=== PATIENT | female | born 1985 | race Caucasian/White ===

== ENCOUNTER 2023-06-28 15:11 | Emergency (ER) | payer OTHER, SELFPAY ==
[2023-06-28] VITALS (11 sets, daily range): BP systolic 139–244; BP diastolic 102–150; PULSE 85–124; RESP 14–21; TEMP 36.5; O2SAT 90–100; BMI 51.6
[2023-06-28 16:11] LABS: Influenza Virus A Antigen Negative; Influenza Virus B Antigen Negative; Internal Control Within Normal Limits
[2023-06-28 16:12] LABS: Internal Control Within Normal Limits; SARS-CoV-2 Ag NEGATIVE (NEGATIVE); Strep A Antigen Screen Positive
--- NOTE | 2023-06-28 16:12 | ECG_ITS ---
[facility] Test Date: 2023-06-28 Pat Name: ELLYN CUEVAS Department: Room: - Gender: Female Director Of Maintenance: : 1985 Requested By: Order Number: [id number] Reading MD: YARIEL COOPER Measurements Intervals [place] Rate: 106 P: 61 MN: 172 QRS: -51 QRSD: 86 T: 44 QT: 332 QTc: 394 Interpretive Statements 1120 Sinus tachycardia 2630 Left anterior fascicular block 8102 Low QRS voltage in chest leads 9150 abnormal ECG No previous ECG available for comparison Electronically Signed On 06-28-2023 23:15:03 EST by YARIEL COOPER
--- NOTE | 2023-06-28 16:13 | ED.URI1 ---
HPI - URI/Sore Throat General Chief Complaint: Upper Respiratory Infection Stated Complaint: Upper Respiratory Infection Time Seen by Provider: 06/28/23 16:00 Source: patient Limitations: no limitations History of Present Illness HPI Narrative: Patient is a 38-year-old female who presents to the emergency department for the evaluation of flulike illness. She has a history of high blood pressure, hypothyroidism, mental illness. Her son was seen twice at the [facility] emergency department last week for strep and flulike illness. She states she developed symptoms in the last 5 to 7 days. She reports nausea, vomiting, sore throat, congestion. She is not concerned for . She has been out of her medications for high blood pressure, hypothyroidism. She states she is in between primary care providers. She has no chest pain or shortness of breath. Related Data Previous Rx's Medication Instructions Recorded buspirone 15 mg tablet 15 mg PO TID 14 days #42 tabs 06/28/23 levothyroxine 150 mcg tablet 150 mcg PO DAILY 14 days #14 tabs 06/28/23 (Synthroid) lisinopril 20 1 tab PO DAILY 14 days #14 tabs 06/28/23 mg-hydrochlorothiazide 12.5 mg tablet metoprolol tartrate 25 mg tablet 25 mg PO BID 14 days #28 tabs 06/28/23 ondansetron 4 mg disintegrating 4 mg PO Q6H PRN nausea and 06/28/23 tablet vomiting #12 tabs venlafaxine 75 mg capsule,extended 75 mg PO BID 14 days #28 caps 06/28/23 release 24 hr Allergies Allergy/AdvReac Type Severity Reaction Status Date / Time naproxen AdvReac Intermediate Blister Verified 06/28/23 16:39 Review of Systems ROS Constitutional Denies: fever or chills Ears, nose, mouth, and throat Reports: throat pain and nasal congestion Cardiovascular Denies: chest pain Respiratory Reports: cough; Denies: shortness of breath Gastrointestinal Reports: nausea and vomiting Musculoskeletal Denies: back pain Integumentary/Breast Denies: rash Neurological Denies: headache Allergic/Immunologic Denies: hives PFSH PFSH Social History Smoking status: Former smoker Exam Narrative Exam Narrative: Gen.: Awake, alert, in no distress Head: Normocephalic, atraumatic ENT: Moist mucous membranes Respiratory: No respiratory distress, lungs clear bilaterally Cardio: Tachycardia Gastrointestinal: Abdomen is soft, nondistended and nontender to palpation Extremities: Moves extremities equally Psych: Normal mood and affect Neuro: No focal neuro deficit Skin: Warm, dry, intact Constitutional Vital Signs, click to edit/add: Last Vital Signs Temp 97.7 F 06/28/23 15:15 Pulse 124 H 06/28/23 15:15 Resp 20 06/28/23 15:15 BP 200/140 H 06/28/23 15:49 Pulse Ox 100 06/28/23 15:15 Course Vital Signs Vital signs: Vital Signs Temperature 97.7 F 06/28/23 15:15 Pulse Rate 124 H 06/28/23 15:15 Respiratory Rate 06/28/23 15:15 Blood Pressure 244/150 H 06/28/23 15:15 Pulse Oximetry 100 06/28/23 15:15 Temperature 97.7 F 06/28/23 15:15 Pulse Rate 124 H 06/28/23 15:15 Respiratory Rate 06/28/23 15:15 Blood Pressure 200/140 H 06/28/23 15:49 Pulse Oximetry 100 06/28/23 15:15 MDM - URI/Sore Throat MDM Narrative Medical decision making narrative: Because of the patient's tachycardia and hypertension, an IV was placed, EKG was obtained, swabs for strep, COVID and flu were obtained. Patient is positive for strep, labs with no significant acute abnormalities. She was treated with IV fluids, Zofran, labetalol with improvement of blood pressure.Patient has been out of her metoprolol and Synthroid. I will refill these until she is able to be seen by her PCP at the end of this month.She opted for intramuscular Bicillin for treatment of her strep pharyngitis in the ER. She was given Decadron as well with improvement. She is discharged home to follow-up with PCP and return to the ER if symptoms change or worsen. Medical Records Attestation: I reviewed the patient's medical records. Lab Data Attestation: I reviewed the patient's lab results. Labs: Lab Results 06/28/23 06/28/23 Range/Units 15:26 16:22 WBC 15.7 H (4.0-11.0) 10^3/uL RBC 5.22 (4.20-5.40) 10^6/uL Hgb 12.6 (12.0-16.0) g/dL Hct 39.8 (36.0-48.0) % MCV 76.2 L (81.0-99.0) fL MCH 24.1 L (26.7-34.0) pg MCHC 31.7 (29.9-35.2) g/dL RDW 16.5 H (11.0-15.0) % Plt Count 401 (150-450) 10^3/uL MPV 8.7 L (9.5-13.5) fL Neut % (Auto) 69.2 (43.0-75.0) % Lymph % (Auto) 22.4 (20.5-60.0) % [place] % (Auto) 4.8 (1.7-12.0) % Eos % (Auto) 2.7 (0.9-7.0) % Baso % (Auto) 0.5 (0.2-2.0) % Neut # (Auto) 10.8 H (1.4-6.5) 10^3/uL Lymph # (Auto) 3.5 (1.2-3.8) 10^3/uL [place] # (Auto) 0.8 (0.3-0.8) 10^3/uL Eos # (Auto) 0.4 (0.0-0.7) 10^3/uL Baso # (Auto) 0.1 (0.0-0.1) 10^3/uL Abs Immat Gran (auto) 0.07 H (0.00-0.03) 10^3/uL Imm/Tot Granulo (auto) 0.4 (0.0-0.5) % Sodium 141 (136-145) mmol/L Potassium 3.9 (3.5-5.1) mmol/L Chloride 103 (98-107) mmol/L Carbon Dioxide 32.3 H (21.0-32.0) mmol/L Anion Gap 9.6 BUN 10.0 (7.0-18.0) mg/dL Creatinine 0.94 (0.55-1.02) mg/dL Est GFR ( Amer) >60 (>=60) Est GFR (Non-Af Amer) >60 (>=60) BUN/Creatinine Ratio 10.6 Glucose 113 H (74-106) mg/dL Calcium 8.6 (8.5-10.1) mg/dL Total Bilirubin 0.2 (0.2-1.0) mg/dL AST 30 (15-37) U/L ALT 31 (14-59) U/L Alkaline Phosphatase 91 (46-116) U/L Troponin I High Sens <4.0 L (4.0-51.3) pg/mL Total Protein 8.7 H (6.4-8.2) g/dL Albumin 3.2 L (3.4-5.0) g/dL Globulin 5.5 g/dL Albumin/Globulin Ratio 0.6 Influenza Type A Ag Negative Influenza Type B Ag Negative SARS-CoV-2 Ag (CV2AG) Negative (NEGATIVE) Streptococcus Screen Positive A ECG Data Attestation: I personally reviewed and interpreted this ECG as follows: (Sinus tachycardia at a rate of 106,No acute ST elevation or ectopy. EKG reviewed by attending physician) ECG interpretation date: 06/28/23 Discharge Plan Discharge Chief Complaint: Upper Respiratory Infection Clinical Impression: Acute streptococcal pharyngitis, Hypertension Patient Disposition: Home, Self-Care Time of Disposition Decision: 17:23 Condition: Good Prescriptions / Home Meds: New ondansetron 4 mg tablet,disintegrating 4 mg PO Q6H PRN (Reason: nausea and vomiting) Qty: 12 0RF buspirone 15 mg tablet 15 mg PO TID 14 Days Qty: 42 0RF levothyroxine [Synthroid] 150 mcg tablet 150 mcg PO DAILY 14 Days Qty: 14 0RF lisinopril-hydrochlorothiazide 20-12.5 mg tablet 1 tab PO DAILY 14 Days Qty: 14 0RF metoprolol tartrate 25 mg tablet 25 mg PO BID 14 Days Qty: 28 0RF venlafaxine 75 mg capsule,extended release 24hr 75 mg PO BID 14 Days Qty: 28 0RF Instructions: Strep Throat (ED), Hypertension (ED) Stand Alone Forms: Portal Instructions Referrals: Physician,Non-Staff, MD [Primary Care Provider] - 1 week
[2023-06-28 16:32] LABS: Basophils Absolute Auto 0.1 10^3/uL (0.0-0.1); Basophils Percent Auto 0.5 % (0.2-2.0); Eosinophils Absolute Auto 0.4 10^3/uL (0.0-0.7); Eosinophils Percent Auto 2.7 % (0.9-7.0); Hematocrit 39.8 % (36.0-48.0); Hemoglobin 12.6 g/dL (12.0-16.0); Immature Granulocytes Abs Auto 0.07 10^3/uL (0.00-0.03); Immature Granulocytes Pct Auto 0.4 % (0.0-0.5); Lymphocytes Absolute Auto 3.5 10^3/uL (1.2-3.8); Lymphocytes Percent Auto 22.4 % (20.5-60.0); Mean Corpuscular HGB Conc 31.7 g/dL (29.9-35.2); Mean Corpuscular Hemoglobin 24.1 pg (26.7-34.0); Mean Corpuscular Volume 76.2 fL (81.0-99.0); Mean Platelet Volume 8.7 fL (9.5-13.5); Monocytes Absolute Auto 0.8 10^3/uL (0.3-0.8); Monocytes Percent Auto 4.8 % (1.7-12.0); Neutrophils Absolute Auto 10.8 10^3/uL (1.4-6.5); Neutrophils Percent Auto 69.2 % (43.0-75.0); Platelet Count 401 10^3/uL (150-450); Red Blood Count 5.22 10^6/uL (4.20-5.40); Red Cell Distribution Width 16.5 % (11.0-15.0); White Blood Count 15.7 10^3/uL (4.0-11.0)
[2023-06-28] MEDS: 0.9 % SODIUM CHLORIDE 1,000 ML 1000 ML IV (16:39)
[2023-06-28] MEDS: ONDANSETRON PF 4 MG/2 ML VIAL IV (16:39)
[2023-06-28] MEDS: LABETALOL HCL 20 MG/4 ML SYRINGE IVP (16:39)
[2023-06-28 16:47] LABS: Alanine Aminotransferase 31 U/L (14-59); Albumin Globulin Ratio 0.6; Albumin Level 3.2 g/dL (3.4-5.0); Alkaline Phosphatase 91 U/L (46-116); Anion Gap 9.6; Aspartate Amino Transferase 30 U/L (15-37); BUN Creatinine Ratio 10.6; Bilirubin Total 0.2 mg/dL (0.2-1.0); Calcium 8.6 mg/dL (8.5-10.1); Carbon Dioxide 32.3 mmol/L (21.0-32.0); Chloride 103 mmol/L (98-107); Estimated GFR (African America >60 (>=60); Estimated GFR (Non-African Ame >60 (>=60); Globulin 5.5 g/dL; Glucose 113 mg/dL (74-106); Potassium 3.9 mmol/L (3.5-5.1); Sodium 141 mmol/L (136-145); Total Protein 8.7 g/dL (6.4-8.2); Troponin I High Sensitivity <4.0 pg/mL (4.0-51.3)
[2023-06-28] MEDS: PENICILLIN G BENZATHINE 1,200,000 UNIT/2 ML SYRINGE 1200000 UNIT IM (16:47)
== END 2023-06-28 17:40 | disposition home or self-care (01) ==
PROVIDERS: Physician Assistant; Emergency Provider Emergency Medicine Emergency Medical Services
DX: J02.0 Streptococcal pharyngitis (principal); I10 Essential (primary) hypertension; E03.9 Hypothyroidism, unspecified; F99 Mental disorder, not otherwise specified; Z87.891 Personal history of nicotine dependence; T44.7X6A Underdosing of beta-adrenoreceptor antagonists, initial encounter; T38.1X6A Underdosing of thyroid hormones and substitutes, initial encounter
CPT/HCPCS: 36415; 80053; 84484; 85025; 87804; 87811; 87880; 93005; 96372; 96374; 96375; 99285; J0561; J1290; J2405

== ENCOUNTER 2023-10-20 19:24 | Emergency (ER) | payer OTHER, SELFPAY ==
--- OUTSIDE RECORDS SUMMARY | 2023-10-20 19:29 | XMS_ITS | CCD ---
Author Organization [facility] Care Team Providers Care Vocational Adviser Name Role Phone Mummert DO, Ayo Primary Care Unavailable Mummert, Ayo Attending Unavailable Mummert, Ayo Attending Unavailable Mummert DO, Ayo Primary Care Unavailable Mummert, Ayo Attending Unavailable Mummert DO, Ayo Primary Care Unavailable Mummert DO, Ayo Primary Care Unavailable Mummert, Ayo Attending Unavailable Cornejo, Manjit Attending Unavailable Cornejo, Manjit Admitting Unavailable MISC, DR HOWE Primary Care Unavailable DIONI, DR OTERO Admitting Unavailable HAY, DR OTERO Attending Unavailable DASHAWN ROSARIO Consulting Unavailable HAY, DR OTERO Consulting Unavailable TROTTI, GIROLAJOYCE Consulting Unavailable Madelin, Barbara Angelo Attending Unavailable MadelinBarbara Attending Unavailable Allergies Allergy Classification Reported Allergen(s) Allergy Type Date of Onset Reaction(s) Facility (2 sources) Naproxen; Translations: [naproxen] Drug Allergy [facility] Repository (1 source) Codeine Drug Allergy 03-29-2015 [facility] Repository (1 source) Naproxen Drug Allergy 05-26-2014 [facility] Repository (1 source) Darvocet-N 100 Drug allergy (disorder) 05-26-2014 [facility] Repository Problems Problem Classification Problem Date Documented Da te Episodic/Chronic Abdominal hernia (1 source) Umbilical hernia without obstruction or gangrene; Translations: [UMBILICAL HERNIA W/O OBST/GANGRENE] Onset: 04-13-2022 Episodic Abdominal pain (4 sources) Left lower quadrant pain; Translations: [LEFT LOWER QUADRANT PAIN] Onset: 04-09-2022 Episodic Other gastrointestinal disorders (1 source) Constipation, unspecified; Translations: [CONSTIPATION UNSPECIFIED] Onset: 04-13-2022 Episodic Residual codes; unclassified (1 source) Acquired absence of other specified parts of digestive tract; Translations: [ACQ ABSENCE OTH PART DIGESTV TRACT] Onset: 04-13-2022 Episodic Results Test Name Value Interpretation Reference Range Facil ity Pre-Certification Formon Pre-Certification Form [id number] Normal [facility] Ambulatory Visit Summaryon 0 07-01-2023 Ambulatory Visit Summary ELLYN RAI :1985 Visit Date:07/01/2023 Ambulatory Visit Instructions Your Diagnosis Anxiety Depression BMI 50.0-59.9, adult Former smoker Your Care Team Attending Physician - Barbara Troncoso Primary Care Physician - Barbara Troncoso This Is Your Medications List albuterol (Ventolin HFA 90 mcg/inh Aerosol-Adpt) buprenorphine-naloxon e (buprenorphine-naloxo ne 8 mg-2 mg sublingual film) busPIRone (busPIRone 15 mg Tab) busPIRone (busPIRone 15 mg Tab) gabapentin (gabapentin 400 mg Cap) levothyroxine (levothyroxine 150 mcg (0.15 mg) Tab) lisinopril (lisinopril 20 mg Tab) metoprolol (Metoprolol tartrate 25 mg Tab) ondansetron (ondansetron 4 mg Dis Tab) venlafaxine (venlafaxine 112.5 mg oral tablet, extended release) [Image Removed: STOP]Stop taking these medications hydrochlorothiazide-l isinopril (hydrochlorothiazide- lisinopril 12.5 mg-20 mg Tab) Procedures Performed delivery, Cholecystectomy, Surgery. Discharge Vitals Heart Rate (Peripheral) 78 Respiratory Rate 18 Blood Pressure 122/80 Height 165.5 cm Height 65 in Weight 149.8 kg Weight 329.56 lb BMI 54.69 What to do next Scheduled Follow-Up Appointments Tuesday 8:40 AM EDT With: Barbara Troncoso Where: [facility] Jose Normal [facility] Family Medicine Office/Clini c Noteon 07-01-2023 Family Medicine Office/Clinic Note HPI Staff Ellyn is a 38 year old female presenting to establish care Establish Care: History: Any previous diagnosis: Anx/dep, hypothyroid, asthma , chronic pain, History of drug use History of seeing any specialist: When was your last doctors visit: Last provider: [facility] Any recent labs: over a year ago, ELEUTERIO: 18 PHQ-9: 24 Health Maintenance UTD: Colonoscopy: no Mammogram: no Pelvic/Pap: 2016 normal Acute: Current issues/complaints: FYI pt has chronic left knee pain and back pain has muscle spasms. pt needs all medication refilled. History of Present Illness pt presents today to establish care. she went to ER for elevated BP. was started on hctz-lisinopril. BP is much better. but pt states after taking that med she gets dizzy. anxiety and depression are worsening Review of Systems PHQ Score Initial Depression Screen Score: 6 SCORE ROS - Provider Constitutional: no fever, no chills, no sweats, no fatigue Respiratory: no shortness of breath, no cough, no orthopnea, no wheezing. Cardiovascular: no chest pain, no palpitations, no edema. Neurologic: no headache, no dizziness, no numbness, no weakness. Physical Exam Vitals & Measurements HR: 78(Peripheral) RR: 18 BP: 122/80 SpO2: 98% HT: 65 in HT: 165.5 cm WT: 149.8 kg WT: 329.56 lb BMI: 54.69 General: alert, no acute distress ENMT: oral mucosa moist, no pharyngeal erythema or exudate Cardiovascular: regular rate and rhythm, normal peripheral perfusion Respiratory: Lungs CTA, respirations non labored Extremities: no deformity, no trauma Neurological: oriented x 4, LOC appropriate for age, CN II-XII intact, motor strength equal & normal bilaterally, speech normal Assessment/Plan 1. Anxiety (F41.9: Anxiety disorder, unspecified) will increase effexor to 112.5mg daily. pt has been on same dose for about 5 years. denies suicidal ideations at this time. RTC 4 weeks for annual wellness visit with labs. and to follow up on anxiety depression and Bp Ordered: lisinopril, 20 mg = 1 tab(s), Oral, Daily, # 90 tab(s), Refills(s) 0, Pharmacy: [facility], 165.5, cm, 07/01/23 13:32:00 EST, Height/Length Dosing, 149.8, kg, 07/01/23 13:32:00 EST, Weight Dosing 2. Depression (F32.A: Depression, unspecified) see above Ordered: lisinopril, 20 mg = 1 tab(s), Oral, Daily, # 90 tab(s), Refills(s) 0, Pharmacy: [facility], 165.5, cm, 07/01/23 13:32:00 EST, Height/Length Dosing, 149.8, kg, 07/01/23 13:32:00 EST, Weight Dosing 3. Essential hypertension (I10: Essential (primary) hypertension) BP at goal today. pt feels she gets very dizzy after taking hctz/lisinopril. will send just lisinopril to be taken at night. pt will monitor BP at home. will return in 4 weeks for follow up 4. Severe obesity (E66.01: Morbid (severe) obesity due to excess calories) 5. BMI 50.0-59.9, adult (Z68.43: Body mass index [BMI] 50.0-59.9, adult) BMI eduction complete Ordered: lisinopril, 20 mg = 1 tab(s), Oral, Daily, # 90 tab(s), Refills(s) 0, Pharmacy: [facility], 165.5, cm, 07/01/23 13:32:00 EST, Height/Length Dosing, 149.8, kg, 07/01/23 13:32:00 EST, Weight Dosing 6. Former smoker (Z87.891: Personal history of nicotine dependence) continue not smoking Ordered: lisinopril, 20 mg = 1 tab(s), Oral, Daily, # 90 tab(s), Refills(s) 0, Pharmacy: [facility], 165.5, cm, 07/01/23 13:32:00 EST, Height/Length Dosing, 149.8, kg, 07/01/23 13:32:00 EST, Weight Dosing Orders: busPIRone, 15 mg = 1 tab(s), Oral, TID, # 270 tab(s), Refills(s) 0, Pharmacy: [facility], 165.5, cm, 07/01/23 13:32:00 EST, Height/Length Dosing, 149.8, kg, 07/01/23 13:32:00 EST, Weight Dosing gabapentin, See Instructions, TAKE ONE CAPSULE BY MOUTH TWICE A DAY 90 DAYS, # 180 caplet(s), Refills(s) 1, Pharmacy: [facility], 165.5, cm, 07/01/23 13:32:00 EST, Height/Length Dosing, 149.8, kg, 07/01/23 13:32:00 EST, Weight Dosing levothyroxine, 150 mcg = 1 tab(s), Oral, Daily, 0 Refill(s), # 90 tab(s), Refills(s) 0, Pharmacy: [facility], 165.5, cm, 07/01/23 13:32:00 EST, Height/Length Dosing, 149.8, kg, 07/01/23 13:32:00 EST, Weight Dosing metoprolol, 25 mg = 1 tab(s), Oral, BID, 1 Unknown, 0 Refill(s), # 180 tab(s), Refills(s) 1, Pharmacy: [facility], 165.5, cm, 07/01/23 13:32:00 EST, Height/Length Dosing, 149.8, kg, 07/01/23 13:32:00 EST, Weight Dosing venlafaxine, 112.5 mg = 1 tab(s), Oral, Daily, # 90 tab(s), Refills(s) 0, Pharmacy: [facility], 165.5, cm, 07/01/23 13:32:00 EST, Height/Length Dosing, 149.8, kg, 07/01/23 13:32:00 EST, Weight Dosing Follow-up No qualifying data available Problem List/Past Medical History Ongoing Acquired hypothyroidism Anxiety Depression Essential hypertension Mild intermittent asthma Mixed anxiety and depressive disorder Severe obesity Historical No qualifying data Procedure/Surgical History delivery, Cholecystectomy, Surgery. Medications (more content not included)... Normal [facility] Comment on above: Result Comment: Elec tronically Signed By: Barbara Troncoso\.br\Date and Time Signed: 07/01/23 14:02 EST CBC AUTO DIFFon 04-09-2022 BASO # 0.1 103/ul Normal 0.0-0.1 [facility] Comment on above: Performed By: #### C BC #### [facility] [address] [address] [address] Andra Zamarripa Basophils/100 WBC (Bld) 0.6 % Normal 0.2-2.0 [facility] Comment on above: Performed By: #### C BC #### [facility] [address] [address] [address] Andra Zamarripa EO # 0.3 103/ul Normal 0.0-0.7 [facility] Comment on above: Performed By: #### C BC #### [facility] [address] [address] [address] Andra Zamarripa Eosinophils/100 WBC (Bld) 2.1 % Normal 0.9-7.0 [facility] Comment on above: Performed By: #### C BC #### [facility] [address] [place] [address] Dr. Andra Zamarripa Erythrocyte distribution width (RBC) [Ratio] 20.6 % Critically high 11.0-15.0 [facility] Comment on above: Performed By: #### C BC #### [facility] [address] [place] [address] Dr. Andra Zamarripa Hematocrit (Bld) [Volume fraction] 39.5 % Normal 36.0-48.0 [facility] Comment on above: Performed By: #### C BC #### [facility] [address] [place] [address] Dr. Andra Zamarripa Hemoglobin (Bld) [Mass/Vol] 12.1 g/dL Normal 12.0-16.0 [facility] Comment on above: Performed By: #### C BC #### [facility] [address] [address] [address] Andra Zamarripa IG # 0.06 10e3/ul Critically high 0.00-0.03 [facility] Comment on above: Performed By: #### C BC #### [facility] [address] [address] [address] Andra Zamarripa IG % 0.4 % Normal 0.0-0.5 [facility] Comment on above: Performed By: #### C BC #### [facility] [address] [address] [address] Andra Zamarripa LYMPH # 4.2 103/ul Critically high 1.2-3.8 [facility] Comment on above: Performed By: #### C BC #### [facility] [address] [place] [address] Dr. Andra Zamarripa Lymphocytes/100 WBC (Bld) 26.3 % Normal 20.5-60.0 [facility] Comment on above: Performed By: #### C BC #### [facility] [address] [place] [address] Dr. Andra Zamarripa MANUAL DIFF REQ NO Normal [facility] Comment on above: Performed By: #### C BC #### [facility] [address] [place] [address] Dr. Andra Zamarripa MCH (RBC) [Entitic mass] 21.3 pg Critically low 26.7-34.0 [facility] Comment on above: Performed By: #### C BC #### [facility] [address] [place] [address] Dr. Andra Zamarripa MCHC (RBC) [Mass/Vol] 30.6 g/dL Normal 29.9-35.2 [facility] Comment on above: Performed By: #### C BC #### [facility] [address] [place] [address] Dr. Andra Zamarripa MCV (RBC) [Entitic vol] 69.4 fL Critically low 81.0-99.0 [facility] Comment on above: Performed By: #### C BC #### [facility] [address] [place] [address] Dr. Andra Zamarripa MONO # 0.7 103/ul Normal 0.3-0.8 [facility] Comment on above: Performed By: #### C BC #### [facility] [address] [place] [address] Dr. Andra Zamarripa Monocytes/100 WBC (Bld) 4.4 % Normal 1.7-12.0 [facility] Comment on above: Performed By: #### C BC #### [facility] [address] [address] [address] Andra Zamarripa NEUT # 10.6 103/ul Critically high 1.4-6.5 [facility] Comment on above: Performed By: #### C BC #### [facility] [id number] Andra Zamarripa Neutrophils/100 WBC (Bld) 66.2 % Normal 43.0-75.0 [facility] Comment on above: Performed By: #### C BC #### [facility] [address] [place] [address] Dr. Andra Zamarripa Platelet mean volume (Bld) [Entitic vol] 9.1 fL Critically low 9.5-13.5 [facility] Comment on above: Performed By: #### C BC #### [facility] [address] [place] [address] Dr. Andra Zamarripa PLT 454 103/ul Critically high 150-450 [facility] Comment on above: Performed By: #### C BC #### [facility] [address] [place], [place] [id number] Dr. Andra Zamarripa RBC 5.69 106/ul Critically high 4.20-5.40 [facility] Comment on above: Performed By: #### C BC #### [facility] [address] [place], [place] [id number] Dr. Andra Zamarripa WBC 16.0 103/ul Critically high 4.0-11.0 [facility] Comment on above: Performed By: #### C BC #### [facility] [address] [place], [place] [id number] Dr. Andra Zamarripa CT ABD/PELVIS WO CONon 04-09 CT ABD/PELVIS WO CON CT SCAN OF THE ABDOMEN AND PELVIS WITHOUT CONTRAST, 04/09/2022 5:53 PM EST COMPARISON: None CLINICAL HISTORY: CALCULUS OF KIDNEY left lower quadrant pain for a day TECHNIQUE: 3 mm axial images performed through the abdomen and pelvis without contrast. 3 mm sagittal and coronal MPR reconstructions performed. Dose reduction techniques were achieved by using automated exposure control and/or adjustment of mA and/or kV according to patient size and/or use of iterative reconstruction technique. ABDOMINAL CT SCAN FINDINGS: Lung bases are clear. Visualized heart is normal in size with no pericardial effusion. No renal or ureteral calculi identified. No obstructive uropathy. Remaining nonenhanced abdominal solid organs unremarkable. Prior cholecystectomy. PELVIC CT FINDINGS: The uterus and nondistended urinary bladder have a normal appearance. No free fluid. Moderate to large amount of fecal matter in the colon bordering on a pattern of early constipation. No mechanical obstruction. The appendix is normal. Fat-containing umbilical hernia with an opening orifice measuring 13 mm. No acute osseous abnormality. IMPRESSION: 1. Bowel gas pattern suggestive of early constipation. No mechanical obstruction. The appendix is normal. 2. No renal or ureteral calculi identified. No obstructive uropathy. 3. Prior cholecystectomy. 4. Small fat-containing abdominal hernia. Electronically authenticated by: Liz BURRELL Date: 2022-04-09 21:04 Normal [facility] Covid-19 PCR ([facility])on SARS-CoV-2 (COVID-19) RNA DEE+probe Ql (Unsp spec) Not detected Normal NOT DETECTED [facility] Comment on above: Result Comment: When diagnostic testing is negative, the possibility of a false negative should be considered in the context of a patient's recent exposures and the presence of clinical signs and symptoms consistent with SARS-CoV-2. This test is not yet approved or cleared by the [place] FDA. When there are no FDA-approved or cleared tests available, and other criteria are met, FDA can make tests available under an emergency access mechanism called an Emergency Use Authorization (EUA). The EUA for this test is supported by the [place] of Health and Human Service's declaration that circumstances exist to justify the emergency use of in vitro diagnostics for the detection and/or diagnosis of the virus that causes COVID-19. This EUA will remain in effect for the duration of the COVID-19 declaration justifying emergency of IVDs, unless it is terminated or revoked by the FDA (after which the test may no longer be used). Performed By: #### C VDTB #### [facility] [address] [place] [address] Dr. Andra Zamarripa URINE PROFILEon 2 Bilirubin Ql (U) Negative Normal NEGATIVE [facility] Comment on above: Performed By: #### E RUR, PREGU #### [facility] [address] [place] [address] Dr. Andra Zamarripa Clarity (U) CLEAR Normal CLEAR [facility] Comment on above: Performed By: #### E RUR, PREGU #### [facility] [address] [place] [address] Dr. Andra Zamarripa Color (U) YELLOW Normal YELLOW [facility] Comment on above: Performed By: #### E RUR, PREGU #### [facility] [address] [place] [address] Dr. Andra Zamarripa ERUAHJorge A micrscopic examination will be performed if indicated. Normal [facility] Comment on above: Performed By: #### E RUR, PREGU #### [facility] [address] [place] [address] Dr. Andra Zamarripa Glucose Ql (U) Negative Normal NEGATIVE [facility] Comment on above: Performed By: #### E RUR, PREGU #### [facility] [address] [place] [address] Dr. Andra Zamarripa Hemoglobin Ql (U) Negative Normal NEGATIVE [facility] Comment on above: Performed By: #### E RUR, PREGU #### [facility] [address] [place] [address] Dr. Andra Zamarripa Ketones Ql (U) Negative Normal NEGATIVE [facility] Comment on above: Performed By: #### E RUR, PREGU #### [facility] [address] [place] [address] Dr. Andra Zamarripa LEUKOCYTES Negative Normal NEGATIVE [facility] Comment on above: Performed By: #### E RUR, PREGU #### [facility] [address] [place] [address] Dr. Andra Zamarripa Nitrite Ql (U) Negative Normal NEGATIVE [facility] Comment on above: Performed By: #### E RUR, PREGU #### [facility] [address] [place] [address] Dr. Andra Zamarripa pH (U) 7.0 [pH] Normal 5-9 [facility] Comment on above: Performed By: #### E RUR, PREGU #### [facility] [address] [place] [address] Dr. Andra Zamarripa SPEC GRAVITY 1.020 Normal 1.005-<=1.025 [facility] Comment on above: Performed By: #### E RUR, PREGU #### [facility] [address] [place] [address] Dr. Andra Zamarripa UA PROTEIN Negative Normal NEGATIVE/ TRACE [facility] Comment on above: Performed By: #### E RUR, PREGU #### [facility] [address] [place] [address] Dr. Andra Zamarripa UR MICRO IND NOT INDICATED Normal [facility] Comment on above: Performed By: #### E RUR, PREGU #### [facility] [address] [place] [address] Dr. Andra Zamarripa Urobilinogen Qn (U) 2.0 {Rosa'U}/dL Abnormal 0.2 - 1. 0 [facility] Comment on above: Performed By: #### E RUR, PREGU #### [facility] [address] [place] [address] Dr. Andra Zamarripa INFLUENZA A AND B AGon 04-09 INFLUENZA A AG Negative Normal NEGATIVE SEE COMMENT [facility] Comment on above: Performed By: #### I NFLUAB #### [facility] [address] [place] [address] Dr. Andra Zamarripa INFLUENZA B AG Negative Normal NEGATIVE SEE COMMENT [facility] Comment on above: Performed By: #### I NFLUAB #### [facility] [address] [place] [address] Dr. Andra Zamarripa INFLUPOS SEE BELOW Normal [facility] Comment on above: Result Comment: NOTE : Live attenuated influenzae vaccine viruses can cause a positive result for a rapid influenza diagnostic test if administered up to 7 days prior to rapid testing. Performed By: #### I NFLUAB #### [facility] [address] [place] [address] Dr. Andra Zamarripa INFLUPOSHB SEE BELOW Normal [facility] Comment on above: Result Comment: NOTE : Live attenuated influenzae vaccine viruses can cause a positive result for a rapid influenza diagnostic test if administered up to 7 days prior to rapid testing. Performed By: #### I NFLUAB #### [facility] [address] [place] [address] Dr. Andra Zamarripa INTERNAL CONTROLS Within Normal Limits Normal Wi thin Normal Limits [facility] Comment on above: Performed By: #### I NFLUAB #### [facility] [address] [place] [address] Dr. Andra Zamarripa URon 04-09-2022 , QUAL Negative Normal NEGATIVE [facility] Comment on above: Performed By: #### E RUR, PREGU #### [facility] [address] [place] [address] Dr. Andra Zamarripa PROF 14(COMP METB)on 022 Albumin [Mass/Vol] 3.8 g/dL Normal 3.4-5.0 [facility] Comment on above: Performed By: #### C MP #### [facility] [address] [place] [address] Dr. Andra Zamarripa Albumin/Globulin [Mass ratio] 0.7 {ratio} Normal [facility] Comment on above: Performed By: #### C MP #### [facility] [address] [place] [address] Dr. Andra Zamarripa ALP [Catalytic activity/Vol] 93 U/L Normal 46-116 [facility] Comment on above: Performed By: #### C MP #### [facility] [address] [place] [address] Dr. Andra Zamarripa ALT [Catalytic activity/Vol] 25 U/L Normal 14-59 [facility] Comment on above: Performed By: #### C MP #### [facility] [address] [place] [address] Dr. Andra Zamarripa Anion gap [Moles/Vol] 5.9 mmol/L Normal [facility] Comment on above: Performed By: #### C MP #### [facility] [address] [address] [address] Andra Zamarripa AST [Catalytic activity/Vol] 25 U/L Normal 15-37 [facility] Comment on above: Performed By: #### C MP #### [facility] [address] [address] [address] Andra Zamarripa Bilirubin [Mass/Vol] 0.3 mg/dL Normal 0.2-1.0 [facility] Comment on above: Performed By: #### C MP #### [facility] [address] [address] [address] Andra Zamarripa Calcium [Mass/Vol] 8.7 mg/dL Normal 8.5-10.1 [facility] Comment on above: Performed By: #### C MP #### [facility] [address] [address] [address] Andra Zamarripa Chloride [Moles/Vol] 97 mmol/L Critically low 98-107 [facility] Comment on above: Performed By: #### C MP #### [facility] [address] [address] [address] Andra Zamarripa CO2 [Moles/Vol] 33.4 mmol/L Critically high 21.0-32.0 [facility] Comment on above: Performed By: #### C MP #### [facility] [address] [place] [address] Dr. Andra Zamarripa Creatinine [Mass/Vol] 1.24 mg/dL Critically high 0.55-1.02 [facility] Comment on above: Performed By: #### C MP #### [facility] [address] [address] [address] Andra Zamarripa EGFR-AF ANGUILLAN 59 mL/min/1.73m2 Critically low >=60 [facility] Comment on above: Performed By: #### C MP #### [facility] [address] [address] [address] Andra Zamarripa EGFR-NON AF ANGUILLAN 48 mL/min/1.73m2 Critically low >=60 [facility] Comment on above: Performed By: #### C MP #### [facility] [address] [address] [address] Andra Zamarripa Globulin (S) [Mass/Vol] 5.2 g/dL Normal [facility] Comment on above: Performed By: #### C MP #### [facility] [address] [address] [address] Andra Zamarripa Glucose [Mass/Vol] 136 mg/dL Critically high 74-106 [facility] Comment on above: Performed By: #### C MP #### [facility] [address] [address] [address] Andra Zamarripa Potassium [Moles/Vol] 3.3 mmol/L Critically low 3.5-5.1 [facility] Comment on above: Performed By: #### C MP #### [facility] [address] [address] [address] Andra Zamarripa Protein [Mass/Vol] 9.0 g/dL Critically high 6.4-8.2 [facility] Comment on above: Performed By: #### C MP #### [facility] [address] [place] [address] Dr. Andra Zamarripa Sodium [Moles/Vol] 133 mmol/L Critically low 136-145 [facility] Comment on above: Performed By: #### C MP #### [facility] [address] [place] [address] Dr. Andra Zamarripa Urea nitrogen [Mass/Vol] 12.0 mg/dL Normal 7.0-18.0 [facility] Comment on above: Performed By: #### C MP #### [facility] [address] [address] [address] Andra Zamarripa Urea nitrogen/Creatinine [Mass ratio] 9.7 mg/mg Normal [facility] Comment on above: Performed By: #### C MP #### [facility] [address] [place] [address] Dr. Andra Zamarripa Coding Summaryon 04-07-2022 Coding Summary HTMLBase 64 CnzquulnKQt1dQu+PGhlY WQ+BN5PUWMgQ39loTNmbQ 9LR2bPJS3HUSQQMYDRYA4 IUP3qmVF2QMqdO5NfkoFl CcqmaQHyDJ26HFl3AQI0u DquVXrseP4hiPMfN7p8Lo AyCX97hN71OMvsNWMuOjX 3LjZpbjsgbWFy D6uuWkLcpLYyGmb+PHRhY mxlIHdpZHRoPScxMDAlJy SbtMfgKH2iGi0hFPRpMBH vbGxhcHNlOiBj j2qyFSTxTOyxDO9pfWlrY 3KefHU4QNBel6z6Ts56rJ I+BJFmCNO7eOliEDoll82 4MbAtv8oaLHD2 hVNsHEhdZTR9U99cd2Z0U YCyEZKsJKI2tSP0pF7gcO symnwxB7PsuXTzXcY3HDG 3kCPgeN1wcIwv wxrvcW0hItt+G03MWM0MU EUSUT0XNah5P8IiFvgriP I+OK23EDKtMV25hOIfpNF td7fnxRv2GvXs KTCgYBD0sAquGYtyh3YkM AKcJ88raOGvy2O8NLWbzX treLMzFwGjwVQ9uK1aDDc ennhtm6fkoosr Iwpvc7ythn66xT04Y05cO PpxGPXyGBD4HTSbCRKhqV juvd7qmV9wKt6+JPtqx5y yv4adlJx0ZmYd NIHczdMhhPnbJRF7h5PqW g04T8GvjKlvm2LfTgf9ug 62iPUjp3U3uNE7NJuvDUN rrL6nYGksQiZ9 YPXrSeVsjU35ySGfOGprJ c1jaWpmiNoxQV9nOPDazr pmLPPnmS9uDUBmfLKufRc fSY4cAUGmuddi l070XuMjJCO7GIOqiRTrH 8LfbD7kFaGrQPMhGEHwZ7 EpyNHzYOelZ484UKnoYvY 5XDKvalEzL7Pe HFVnkAarOcS6h0C5Gl5Ap 1MnqgptCHN9NTdpSGAoOw GaXqTdPtH0L6MiYiu7MWP myMvcZQ0lL3Mt XWQlzipkxywvnOE5RQMyX OGnqU22zBGpGEawZu6rz5 M1b804SGAcSQSxaO96Pe8 udDogMTBwdCBU wJ4hhduco8ejxkolZySfI LMwZHg8CJd7LHYnkKzgHp DmWYC4IgI6NOR6yNBjxV5 qoCxeshyhpW5i Oyc+B63ieL3gKAI1PLV6t kivSPOmzaQtLG89GZ24Z0 RyPjwvdGFibGU+PGRpdiB ujFjsDT7wDjKx p8zcy3WyYQwfP6DrIVDmB WerSru4TQRwFDC0lDT8jH 0uAZQgJPikz3S6lCN1E6Q quaVwsa1ku0mm NHZjNJdsU21tnEQoi9J2K VJryRG6DFYhfIgjBfZxzE 93Oyc+TQHfmGtvu9FsExn yw8rhb1hddWb3 OoDpZTZypvCppNmyLRL3e 0BuHd73Y44bHAohLMChXM OiKEAzIMCpaFprix1ggB9 wIi8+PGNvbCB3 jRF5yQ0kGBXgReK8PYyhD 055UoCpqHYgTuvgm2pee0 rtnZi1ZwEfMYMxxmPdqQy uYSL1k5VhWh30 Z43aOSolAWTtWJWmMFMsT FNpaKavhd4clO1aJi9+PC 7gm7ptps62bK53dVB+PHR yOZL2pWvvWOvp XLChmE3cCCdhDrF5DECkS gFktR97fELhNDncUk2wlD dgsOjgWM4tAQTrhcumc99 5SrKnr0dlDACf eOLqWEqpYHS9O35dq6A7C WTvAGRqAZR0vCS8rY3hyD lnbjogbGVmdDsgdmVydGl vQDfkZUkmI762 IHRvcDsnPlBhdGllbnQgT eBjFNx0J5YbAma2GDFnuO xlJI6iaPBgETztYb3wnMh ztQhkZQ1jAZJm khhhs878FcStk2mqLKXrv TBsUPmkHDW2A31mk1U7PA FtMFQyRJH1bCL1tH2aaUu nbjogbGVmdDsg mgKiwEdeEBgrTSvzQ298U HRvcDsnPkJpcnRoIERhdG Z9JQ20IM15sQYyw0P9gOK 6K1GbORQyzksv jchaqEL8ZFKuQHZhsZ47C m0nzRaiYs6fXYJcIGD8QB LmvMIyL6VsvG9qBrXeDFN lGWDjH4MpwIGt OGogI369AKtfCnG3MJCkw tStW3JpBGEqfQwsMiC6h9 X5Nm8TM8X5OV83KP14jRK gh4F2qJR9V2Ak HHVkobtuxcqesFJ5BLDzL RUhsK83Fq1alXanIs1eSO JfBMM2ACFpwKZfA8KngV7 yOiAjMDAwMDAw J0AbqYJfZUwtA985WPpeB gH4EUQdasHmQ5MdEMDktC mlAxN1z1A6Uq0HZTy6OJ5 2CC17gJRku2V9 hXC9G5QqRDCnixwjlzvvw QG8UUUoIWVbbP01Pi2wxJ dtPy9jIKTlHVF9YIFjhPZ dC4IpaR7wNsEt NNFjXNFgI3ArbSBiOOflQ 103RZnoBjW0IWMzefZdR6 PrFTFeyBejCgG5s9C2Wg0 OYLNbGX31QRZ4 oLU0NP28LL61Z2EvCplsu GFibGU+PHRhYmxlIHdpZH RoPScxMDAlJyBzdHlsZT0 fNh9mDWOxSTCd vGwnzCMjToYyt0ikWOIoB NtnUU5osMerD8FfyBO9BI Onl8p2Cb41B86yQ9HfaTB +TTZylEL9pXV2 uT3wQdEtNjX2DAyqU416Y zNcvLXuSnmvj8rfq3sxxA f7KgG7YFYpliLgyOwpSWS 6u4DhPb69U48j IHdpZHRoPSIxNSUiIHZhb Ntrrt2cmB1aEu1+PGNvbC G2oQV2cF1aUsIxQzM2RZb lA812DfXryWSv Oqexu1ojx7nuqZt2LePiC MQnrgIzvGkzPEB6k0WpRs 94L3JvsLsfw3BpHow5ln1 3qRBqf6N0sVB3 W4HgFOKndqukmUTgbZypW C5yTBCwvlkoVTLdrL7aHW MgF0x1OqUhXjZ7VDhkD1U bsmD5OZVcgPDr RQtcTOB2B33dl6R6CHNjL SRgYIZ5lIP9jT8arPuums ogbGVmdDsgdmVydGljYWw gBHrcV871SWWr cPrhSIDjsX6bPYNjvCAex MhlAX7dHEUxwhtoGwyWZT YGMtrdKvhPW2dBPXuMCs7 6P0NbZea2LIFt aKihXD0ypJYnLTjiSh7mo TzniNxgBR5kIWUgntezQG NlvU9bALGwuHIpkWyrEM4 jONXxjwqin478 UdNjFYL9GAAxhOVjP7Ukm O4iSbZqNKJhMZXsQ8YyaS TxWXisL687JSfqNyG6YKJ zbqOuV8MlEOAx oPyiZzX7s7H5Pm5oHU0oP L0tUTo1MH77RK81zKGze5 Y8eWS6C1YmDGDhcdgkclz xyIM2NYVaFNAz nH33fTFwKOakXq7kg2O4q 949OXYwMSCnpO96Vg0arW jzHNNqhMYEjQ1ffgqtw8r vcjogIzAwMDAw VGt4PAr5UKRfkBseAvYbJ OB5QdB1OTD4dGMxiV3ebM fkqqspuM8iYiu+MzggWWV njlH5M5FcDaa9 UBMloUhiYO0ybKTtJYdyX o0pjUndnAriVC1uKKAjjp mkOOTgdD4uYHYjcPNwhVv oVR5hGGMlykwa v352XzKzORC0FRQotDQyA 9ZczA2qZoMfCUVoPCXeO8 ZayVWsEQaoJ685JRlfGqI 1ENGbjcFiD4Hp NCYdfGiuFtK6p9M1Bw7PJ E9XXEG9Q1NtDsd9IMZaoI qaPO8bbEWdDXgkEn5bvTu oeGbuXW1tYARw kmwdMZQftN7lOCUslLRmc RffDD8vCQXrhinag973Ko SwMAT4RUCvzANxW1PfnC4 yOiAjMDAwMDAw U2SuzEFsAPjsE564GHomW uR4ZNOpigRiO4KuRVRabE soKwJ5w8U7Pk8FRXkqmEW +EW63ss43Y6Iz TottXny1QATjTWH4xBZ3k O0aLOVmQTmov4F2fCI3Q5 OdnbDorp5cr5qqJJYrMDo rV67gpZAgi0A5 MAHheTX0TEQnlGvxJaJzw G93Oyc+HNIdlCsau1CfAk syo9hih4uypIe0SfJqZNA gdmFsaWduPSJ0 y9EyQy28T28tGIpfVBVqY IHuTUPpZBEnvBgvrc9odK 9wIi8+ZIKjfNS2cIO0kN6 pKdAkQsF6WSkx L927FcEpcSYwHmqww5chc 1eyeUo0HvRyPVWsoyVkrU upURW0m6LsIa50J4PfdKd kf6UdIez3yv66 nIAws0K1mGJ7E6ZgFUYdo wkubTXeoLqlHH0zPFQqeb vzJNQxkU9hGQUxQ9u5YqF aMhV6RWwcJ9Ep guA8SNKtjKFpVBIzuJNMn L0ugcqza0rsrcitQxLtDE DcZBv6WDp6UXUxbYxzNsG uOFV5MtR6ETI5 wOUjsJ0vfWievexeoR0kF yc+SGd1l7yrgCPnYG7zvN C9UO08VG12mBYuk4T6zXV 3K4IoLPAywild bnimvWB5GWKoAJIsmG19X e3jzHcqEs8yNTDdBRI8YG DlrKDcL0LklL3hWvHmZIN nGDFqP0HioXQx VMawT929JVypZmZ9SWPvo kDrT7TsNTUecLfyXkX5v4 T1Ty5TVV07QP41AE13gZY ah7X5rNZ6V9Cy NQEjuslaljgyiZC9MRQzL RGdxR02Ft1olVilZs3yLF LsOYK5JTJdzOXfJ3PzuU4 yOiAjMDAwMDAw N6ZftXTwHPahH001WOyuM hQ2EFAjqqSjH5ClNWVscD azOjZ2p8W4Lm7GTr52OL9 4HO86eUJfa3L0 iZQ3S8VrILJrijpbsblag ET3NPBzTIShkY52Tt0dpQ qnIs6bHMBvXNL7IMWcjCH fU3PrzC2hAjRm FWJaREPwY0LhaUDwZStkG 984DEmxFnO6KQFvhuVcN9 CoOERwqFzgSwI2y0M1Xm6 CZOiynhc0D6Pg PjwvdHI+DZ38KVKjFX04r DBooWFkn8xbbHt5JsLmGL VwRTL4tQxxWJlce5NzWAU fC59nxZRoe6X2 IGN (more content not included)... [facility] ED Clinical Summaryon 2021 ED Clinical Summary [facility] ? Urgent Care [address] [place] [address] [id number] Clinical Summary PERSON INFORMATION Name: ELLYN RAI Age: 36 Years Sex: FEMALE : 1985 MRN: Acct#: Visit Reason: Cough; COUGH, SOB, HEADACHE Arrival: 03/28/2022 14:00:57 Discharge: 03/28/2022 15:14:00 LOS: 000 01:14 Check In: 03/28/2022 14:00:57 Checkout: 03/28/2022 15:14:00 Address: [address] [place], [place] [id number] PCP: PROVIDER INFORMATION Provider Role Assigned Unassigned Manjit Cornejo PA-C ED PA 03/28/2022 14:05:33 Leatha Flores [employer] Nurse 03/28/2022 14:10:32 VITALS INFORMATION Vital Sign Triage Latest Temperature Tympanic Temperature Temporal Artery Pulse Rate O2 Sat 96 % 96 % Respiratory Rate Blood Pressure /86 mmHg /86 mmHg MEDICAL INFORMATION Medications Given: Allergy Information: naproxen PHYSICIAN DOCUMENTATION DISCHARGE INFORMATION: Discharge Disposition: Home Discharge Location: Home PATIENT EDUCATION INFORMATION Instructions: Acute Bronchitis, Adult, Kekh-od-Qfca; Sinusitis, Adult, Cpvn-kf-Nqfu Follow-Up: With: Address: When: Follow up with primary care provider Within 1 week Comments: Please follow-up with your primary care provider, call the office schedule an appointment to be seen in a week or sooner for continued care, please take the doxycycline, Tessalon Perles, and prednisone as prescribed, use albuterol inhaler as directed, take kmiv-ayv-oxsxsek ibuprofen or Tylenol as needed for body aches, fevers, or headaches. Drink plenty of water to stay hydrated. Please return back to the urgent care center for any worsening symptoms, concerns, or complications. DIAGNOSIS: 1:Acute bronchitis; 2:Acute frontal sinusitis Patient Understands: Yes - Patient/family/caregi merna verbalizes understanding of instructions given Comment: Normal [facility] ED Patient Summaryon 022 ED Patient Summary [facility] ? Urgent Care [address] [place] [id number] PATIENT DISCHARGE INSTRUCTIONS Patient Information Name: ELLYN RAI Age: 36 Years Date of : 1985 [facility]: [id number] Reason For Visit: Cough; COUGH, SOB, HEADACHE Arrival Time: 03/28/2022 14:00:57 Primary Care Physician: Attending Physician: Manjit Cornejo PA-C Comment: Patient Education With: Address: When: Follow up with primary care provider Within 1 week Comments: Please follow-up with your primary care provider, call the office schedule an appointment to be seen in a week or sooner for continued care, please take the doxycycline, Tessalon Perles, and prednisone as prescribed, use albuterol inhaler as directed, take nbjx-geg-erbqnzp ibuprofen or Tylenol as needed for body aches, fevers, or headaches. Drink plenty of water to stay hydrated. Please return back to the urgent care center for any worsening symptoms, concerns, or complications. Acute Bronchitis, Adult Acute bronchitis is when air tubes in the lungs (bronchi) suddenly get swollen. The condition can make it hard for you to breathe. In adults, acute bronchitis usually goes away within 2 weeks. A cough caused by bronchitis may last up to 3 weeks. Smoking, allergies, and asthma can make the condition worse. What are the causes? This condition is caused by: ? Cold and flu viruses. The most common cause of this condition is the virus that causes the common cold. ? Bacteria. ? Substances that irritate the lungs, including: ? Smoke from cigarettes and other types of tobacco. ? Dust and pollen. ? Fumes from chemicals, gases, or burned fuel. ? Other materials that pollute indoor or outdoor air. ? Close contact with someone who has acute bronchitis. What increases the risk? The following factors may make you more likely to develop this condition: ? A weak body's defense system. This is also called the immune system. ? Any condition that affects your lungs and breathing, such as asthma. What are the signs or symptoms? Symptoms of this condition include: ? A cough. ? Coughing up clear, yellow, or green mucus. ? Wheezing. ? Having too much mucus in your lungs (chest congestion). ? Shortness of breath. ? A fever. ? Chills. ? Body aches. ? A sore throat. How is this treated? Acute bronchitis may go away over time without treatment. Your doctor may recommend: ? Drinking more fluids. ? Using a device that gets medicine into your lungs (inhaler). ? Using a vaporizer or a humidifier. These are machines that add water or moisture to the air. This helps with coughing and poor breathing. ? Taking a medicine for fever. ? Taking a medicine that thins mucus and clears congestion. ? Taking a medicine that prevents or stops coughing. Follow these instructions at home: Activity ? Get a lot of rest. ? Return to your normal activities as told by your doctor. Ask your doctor what activities are safe for you. Lifestyle ? Drink enough fluid to keep your pee (urine) pale yellow. ? Do not drink alcohol. ? Do not use any products that contain nicotine or tobacco, such as cigarettes, e-cigarettes, and chewing tobacco. If you need help quitting, ask your doctor. Be aware that: ? Your bronchitis will get worse if you smoke or breathe in other people's smoke (secondhand smoke). ? Your lungs will heal faster if you quit smoking. General instructions ? Take aevz-mjj-pzsgknx and prescription medicines only as told by your doctor. ? Use an inhaler, cool mist vaporizer, or humidifier as told by your doctor. ? Rinse your mouth often with salt water. To make salt water, dissolve ??1 tsp (3?6 g) of salt in 1 cup (237 mL) of warm water. ? Take two teaspoons of honey at bedtime. This helps lessen your coughing at night. ? Keep all follow-up visits as told by your doctor. This is important. How is this prevented? To lower your risk of getting this condition again: ? Wash your hands often with soap and water. If you cannot use soap and water, use hand disability manager. ? Avoid contact with people who have cold symptoms. ? Try not to touch your mouth, nose, or eyes with your hands. ? Make sure to get the flu shot every year. Contact a doctor if: ? Your symptoms do not get better in 2 weeks. ? You vomit more than once or twice. ? You have symptoms of loss of fluid from your body (dehydration). These include: ? Dark pee. ? Dry skin or eyes. ? Increased thirst. ? Headaches. ? Confusion. ? Muscle cramps. Get help right away if: ? You cough up blood. ? You have chest pain. ? You have very bad shortness of breath. ? You become dehydrated. ? You faint or keep feeling like you are going to faint. ? You have a very bad headache. ? Your fever or chills get worse. These symptoms ma (more content not included)... Normal [facility] Urgent Care [place] 022 Urgent Care Record [facility] ? Urgent Care [address] [id number] PATIENT DISCHARGE INSTRUCTIONS Patient Information Name: ELLYN RAI Age: 36 Years Date of : 1985 Reason For Visit: Cough; COUGH, SOB, HEADACHE Arrival Time: 03/28/2022 14:00:57 Primary Care Physician: Attending Physician: Manjit Cornejo PA-C Comment: Visit Diagnosis: Diagnoses This Visit Acute bronchitis (J20.9) Acute frontal sinusitis (J01.10) Cough (45485073) If you received any narcotics, sedation, or any other medication that causes drowsiness for the next 24 hours, unless otherwise directed: ? Do not drive a car. ? Do not operate machinery such as power tools, lawn mowers, drills, sewing machines, or stoves ? Avoid alcoholic beverages and drugs for allergies, nerves, or sleep ? Do not make important personal or business decisions or sign any legal documents With: Address: When: Follow up with primary care provider Within 1 week Comments: Please follow-up with your primary care provider, call the office schedule an appointment to be seen in a week or sooner for continued care, please take the doxycycline, Tessalon Perles, and prednisone as prescribed, use albuterol inhaler as directed, take aewv-utm-tpuqtcj ibuprofen or Tylenol as needed for body aches, fevers, or headaches. Drink plenty of water to stay hydrated. Please return back to the urgent care center for any worsening symptoms, concerns, or complications. Medication Information: The exam and treatment you received today in the [facility] were for an urgent problem and are not intended as complete care. It is important for you to follow up with a doctor, nurse practitioner, or physician?s embalmer assistant for ongoing care. If your symptoms become worse or you do not improve as expected and you are unable to reach your usual health care provider, you should return to the Emergency Department, we are available 24 hours a day. For those patients who have received Radiology results, the interpretation of your X-ray as given to you by our Urgent Care physician is only a preliminary report. The Radiologist will review your films and if there is a change in the diagnosis you will be notified by phone. Please make sure you have provided a working phone number so we can reach you if necessary. In the event that you had a lab culture while you were a patient in the Urgent Care, you will be notified by phone if there is a need to change your antibiotic. Please make sure you have provided a working phone number so we can reach you if necessary. [facility] has provided you with a complete list of medications post discharge. Please inform your hr analyst/provider of your visit and for further instruction on these medications. Any specific questions regarding your chronic medications and dosages should be discussed with your primary care physician(s) and/or pharmacist. New Medications [facility], [address] [place] [address] [phone], [phone] benzonatate (Tessalon Perles 100 mg oral capsule) 1 cap(s) Oral 3 times a day for 7 Days. Refills: 0. doxycycline (doxycycline hyclate 100 mg oral capsule) 1 cap(s) Oral 2 times a day for 10 Days. Refills: 0. predniSONE (predniSONE 20 mg oral tablet) 2 tab(s) Oral every day for 5 Days. Refills: 0. Medications That Were Updated - Follow Below Instructions [facility], [address] [place] [address] [phone], [phone] Updated: albuterol (Albuterol (Eqv-Proventil HFA) 90 mcg/inh inhalation aerosol) 2 puff(s) Inhalation every 6 hours for 7 Days. 2 puffs every 6 hours as needed.. Refills: 0. Other Medications Updated: albuterol (albuterol 90 mcg/inh inhalation aerosol) 2 puff(s) Inhalation Every 6 hours as needed for wheezing. Refills: 3. Medications to Continue That Have Not Changed Other Medications ammonium lactate topical (ammonium lactate 12% topical cream) 1 ravi Topical once a day (at bedtime). Refills: 2. baclofen (baclofen 10 mg oral tablet) 1 tab(s) Oral once a day (at bedtime). Refills: 0. buprenorphine-naloxon e (Suboxone 8 mg-2 mg sublingual film) 1 Each Sublingual 2 times a day. busPIRone (busPIRone 15 mg oral tablet) TAKE 2 TABLETS BY MOUTH EVERY MORNING AND TAKE 1 TABLET EVERY EVENING. Refills: 2. fluticasone nasal (Flonase 50 mcg/inh nasal spray) 1 spray(s) Each Nostril 2 times a day. Refills: 0. gabapentin (gabapentin 400 mg oral capsule) levothyroxine (levothyroxine 150 mcg (0.15 mg) oral tablet) TAKE 1 TABLET BY MOUTH ONCE DAILY. Refills: 2. magnesium oxide (magnesium oxide 400 mg oral tablet) 1 tab(s) Oral 2 times a day. metoprolol (Metoprolol Tartrate 25 mg oral tablet) 1 tab(s) Oral every day. Refills: 3. multivitamin, ( Multivitamins) Oral every day. venlafaxine (venlafaxine 75 mg oral capsule, extended release) TAKE 2 CAPSULES BY LONNY (more content not included)... [facility] Patient Letteron 11-10-2021 Patient Letter [id number] .[id number] [facility] Patient Handouton 09-22-2021 Patient Handout [facility] Internal Medicine [address] [facility] CERTIFIED MAIL September 15, 2021 Ellyn Rai [address] [place] [address] [address] [place] [address] Dear Ellyn: This letter is to inform you that I am terminating our medical provider-patient relationship and will no longer serve as your medical provider or prescribe medications to you effective thirty (30) days from the date of this letter for the following reason: Amount of no shows I will be available to provide emergency care (unless your condition requires you to visit a hospital, in which case, I will refer you there) and access to services for up to thirty (30) days from the date of this letter which will provide you time to find a new medical provider. As you may need medical attention in the future, I recommend that you promptly find another medical provider to care for your healthcare needs. Once you have found another medical provider, you may request that your medical records be transferred to that provider by completing, signing and returning the enclosed written request for the release of your medical records. Sincerely, Normal [facility] Encounters Encounter Date Encounter Type Care Provider Facility Start: 07-29-2023 ambulatory Barbara Angelo Madelin Facility: [facility] Jose Start: 07-01-2023 End: 07-02-2023 ambulatory [facility] Start: 04-09-2022 End: 04-09-[address] DOCTOR VALENTIN Facility: Start: 03-28-2022 End: 03-28-2022 ambulatory Manjit Cornejo [facility] Start: 09-16-2021 End: 09-16-2021 ambulatory Ayo Mummert DO Facility: [facility] Start: 09-08-2021 ambulatory Ayo Mummert DO Faci lity: [facility] Start: 07-23-2021 ambulatory Ayo Mummert Facilit y: [facility] Start: 05-27-2021 End: 05-27-2021 ambulatory Ayo Mummert Facility: [facility] Payers Date Payer Category Payer Medicaid [id number] 1985 Unknown [id number] .16.84 [id number]. 1985 Unknown [id number] .16.84 [id number] 1985 Unknown [id number] .16.84 [id number]. 1985 Unknown [id number] .16.84 [id number]. 1985 Unknown [id number] 2.16.84 [id number] 1985 Unknown [id number] 2.16.84 [id number] 1985 Unknown [id number] 2.16.8 [id number] 1985 Unknown [id number] 2.16.8 [id number] 1960 Medicaid [id number] Clinical Note 03-28-2022 Note Date & Type Note Facility 03-28-2022 Note Patient Education Ma terials Follows:Disease Sinusitis, Adult Sinusitis is soreness and swelling (inflammation) of your sinuses. Sinuses are hollow spaces in the bones around your face. They are located: ? Around your eyes. ? In the middle of your forehead. ? Behind your nose. ? In your cheekbones. Your sinuses and nasal passages are lined with a fluid called mucus. Mucus drains out of your sinuses. Swelling can trap mucus in your sinuses. This lets germs (bacteria, virus, or fungus) grow, which leads to infection. Most of the time, this condition is caused by a virus. What are the causes? This condition is caused by: ? Allergies. ? Asthma. ? Germs. ? Things that block your nose or sinuses. ? Growths in the nose (nasal polyps). ? Chemicals or irritants in the air. ? Fungus (rare). What increases the risk? You are more likely to develop this condition if: ? You have a weak body defense system (immune system). ? You do a lot of swimming or diving. ? You use nasal sprays too much. ? You smoke. What are the signs or symptoms? The main symptoms of this condition are pain and a feeling of pressure around the sinuses. Other symptoms include: ? Stuffy nose (congestion). ? Runny nose (drainage). ? Swelling and warmth in the sinuses. ? Headache. ? Toothache. ? A cough that may get worse at night. ? Mucus that collects in the throat or the back of the nose (postnasal drip). ? Being unable to smell and taste. ? Being very tired (fatigue). ? A fever. ? Sore throat. ? Bad breath. How is this diagnosed? This condition is diagnosed based on: ? Your symptoms. ? Your medical history. ? A physical exam. ? Tests to find out if your condition is short-term (acute) or long-term (chronic). Your doctor may: ? Check your nose for growths (polyps). ? Check your sinuses using a tool that has a light (endoscope). ? Check for allergies or germs. ? Do imaging tests, such as an MRI or CT scan. How is this treated? Treatment for this condition depends on the cause and whether it is short-term or long-term. ? If caused by a virus, your symptoms should go away on their own within 10 days. You may be given medicines to relieve symptoms. They include: ? Medicines that shrink swollen tissue in the nose. ? Medicines that treat allergies (antihistamines). ? A spray that treats swelling of the nostrils.? ? Rinses that help get rid of thick mucus in your nose (nasal saline washes). ? If caused by bacteria, your doctor may wait to see if you will get better without treatment. You may be given antibiotic medicine if you have: ? A very bad infection. ? A weak body defense system. ? If caused by growths in the nose, you may need to have surgery. Follow these instructions at home: Medicines ? Take, use, or apply [id number] and prescription medicines only as told by your doctor. These may include nasal sprays. ? If you were prescribed an antibiotic medicine, take it as told by your doctor. Do not stop taking the antibiotic even if you start to feel better. Hydrate and humidify ? Drink enough water to keep your pee (urine) pale yellow. ? Use a cool mist humidifier to keep the humidity level in your home above 50%. ? Breathe in steam for 10?15 minutes, 3?4 times a day, or as told by your doctor. You can do this in the bathroom while a hot shower is running. ? Try not to spend time in cool or dry air. Rest ? Rest as much as you can. ? Sleep with your head raised (elevated). ? Make sure you get enough sleep each night. General instructions ? Put a warm, moist washcloth on your face 3?4 times a day, or as often as told by your doctor. This will help with discomfort. ? Wash your hands often with soap and water. If there is no soap and water, use hand disability manager. ? Do not smoke. Avoid being around people who are smoking (secondhand smoke). ? Keep all follow-up visits as told by your doctor. This is important. Contact a doctor if: ? You have a fever. ? Your symptoms get worse. ? Your symptoms do not get better within 10 days. Get help right away if: ? You have a very bad headache. ? You cannot stop throwing up (vomiting). ? You have very bad pain or swelling around your face or eyes. ? You have trouble seeing. ? You feel confused. ? Your neck is stiff. ? You have trouble breathing. Summary ? Sinusitis is swelling of your sinuses. Sinuses are hollow spaces in the bones around your face. ? This condition is caused by tissues in your nose that become inflamed or swollen. This traps germs. These can lead to infection. ? If you were prescribed an antibiotic medicine, take it as told by your doctor. Do not stop taking it even if you start to feel better. ? Keep all follow-up visits as told by your doctor. This is important. This information is not intended to replace a (more content not included)... [facility] Medication management note 09-17-2021 Note Date & Type Note Facility 09-17-2021 Note Entered by Brandon Joseph on September 17, 2021 12:55:24 EDT From: Doris Joseph To: [facility] Sent: 09/17/2021 12:55:24 EDT Subject: Medication Management Submitted: Order:venlafaxine (venlafaxine 75 mg oral capsule, extended release) See Instructions TAKE 2 CAPSULES BY MOUTH ONCE DAILY Qty: 180 cap(s) Days Supply: 90 Refills: 2 Substitutions Allowed Route To Pharmacy - [facility] Signed by Doris Joseph 09/17/2021 12:55:00 EDT Submitted: Complete:venlafaxine (venlafaxine 75 mg oral capsule, extended release) Signed by Doris Joseph 09/17/2021 12:55:00 EDT Not Approved: New Rx to follow venlafaxine (VENLAFAXINE 75MG ER) TAKE 2 CAPSULES BY MOUTH ONCE DAILY Qty: 180 cap(s) Days Supply: 90 Refills: 2 Substitutions Allowed Route To Pharmacy - [facility] Note from Pharmacy: pt requests refills please 09/17/2021 11:59:53 AM Signed by Doris Joseph Submitted: Order:levothyroxine (levothyroxine 150 mcg (0.15 mg) oral tablet) See Instructions TAKE 1 TABLET BY MOUTH ONCE DAILY Qty: 90 tab(s) Days Supply: 90 Refills: 2 Substitutions Allowed Route To Pharmacy - [facility] Signed by Doris Joseph 09/17/2021 12:54:00 EDT Submitted: Complete:levothyroxine (levothyroxine 150 mcg (0.15 mg) oral tablet) Signed by Doris Joseph 09/17/2021 12:55:00 EDT Not Approved: New Rx to follow levothyroxine (LEVOTHYROXIN 150MCG) TAKE 1 TABLET BY MOUTH ONCE DAILY Qty: 90 tab(s) Days Supply: 90 Refills: 2 Substitutions Allowed Route To Pharmacy - [facility] Note from Pharmacy: pt requests refills please 09/17/2021 12:00:11 PM Signed by Doris Joseph Patient matched by Doris Joseph on 09/17/2021 12:54:33 EDT From: [facility] To: Ayo Sumner DO, DO Sent: September 17, 2021 11:00:13 AM CDT Subject: Medication Management Due: September 18, 2021 12:25:22 AM CDT On Hold Pending Signature Drug: venlafaxine (venlafaxine 75 mg oral capsule, extended release), TAKE 2 CAPSULES BY MOUTH ONCE DAILY Quantity: 180 cap(s) Days Supply: 90 Refills: 2 Substitutions Allowed Notes from Pharmacy: Dispensed Drug: venlafaxine (venlafaxine 75 mg oral capsule, extended release), TAKE 2 CAPSULES BY MOUTH ONCE DAILY Quantity: 180 cap(s) Days Supply: 90 Refills: 2 Substitutions Allowed Notes from Pharmacy: pt requests refills please 09/17/2021 11:59:53 AM On Hold Pending Signature Drug: levothyroxine (levothyroxine 150 mcg (0.15 mg) oral tablet), TAKE 1 TABLET BY MOUTH ONCE DAILY Quantity: 90 tab(s) Days Supply: 90 Refills: 2 Substitutions Allowed Notes from Pharmacy: Dispensed Drug: levothyroxine (levothyroxine 150 mcg (0.15 mg) oral tablet), TAKE 1 TABLET BY MOUTH ONCE DAILY Quantity: 90 tab(s) Days Supply: 90 Refills: 2 Substitutions Allowed Notes from Pharmacy: pt requests refills please 09/17/2021 12:00:11 PM [facility] Medication management note 08-19-2021 Note Date & Type Note Facility 08-19-2021 Note Entered by Shannan Newton LPN on August 19, 2021 11:31:22 EDT From: Silvia Newton LPN To: [facility] Sent: 08/19/2021 11:31:22 EDT Subject: Medication Management Not Approved: Already sent RF venlafaxine (VENLAFAXINE 75MG ER) TAKE 2 CAPSULES BY MOUTH ONCE DAILY Qty: 180 cap(s) Days Supply: 90 Refills: 2 Substitutions Allowed Route To Pharmacy - [facility] Note from Pharmacy: pt requesting refills 08/19/2021 11:18:04 AM Signed by Silvia Newton LPN From: [facility] To: Ayo Sumner DO, DO Sent: August 19, 2021 10:19:11 AM CDT Subject: Medication Management Due: August 20, 2021 12:10:37 AM CDT On Hold Pending Signature Drug: venlafaxine (venlafaxine 75 mg oral capsule, extended release), TAKE 2 CAPSULES BY MOUTH ONCE DAILY Quantity: 180 cap(s) Days Supply: 90 Refills: 2 Substitutions Allowed Notes from Pharmacy: Dispensed Drug: venlafaxine (venlafaxine 75 mg oral capsule, extended release), TAKE 2 CAPSULES BY MOUTH ONCE DAILY Quantity: 180 cap(s) Days Supply: 90 Refills: 2 Substitutions Allowed Notes from Pharmacy: pt requesting refills 08/19/2021 11:18:04 AM [facility] Summary Purpose Family History No Family History Records FoundNo Family History Records FoundNo Family History Records Found Advance Directives No Advanced Directives Records FoundNo Advanced Directives Records FoundNo Advanced Directives Records Found Additional Source Comments INFORMATION SOURCE (unrecogn ized section and content) DATE CREATED AUTHOR 04/07/2022 [facility] DATE CREATED AUTHOR AUTHOR'S ORGANIZ ATION 04/13/2022 [facility] DATE CREATED AUTHOR AUTHOR'S ORGANIZ ATION 07/14/2023 [facility] FOR RECORDS PERTAINING TO PATIENTS WHO ARE OR HAVE BEEN ENROLLED IN A CHEMICAL DEPENDENCY/SUBSTANCEABUSE PROGRAM, SOME INFORMATION MAY BE OMITTED. This clinical summary was aggregated from multiple sources. Caution should be exercised in using it in the provision of clinical care. This summary normalizes information from multiple sources, and as a consequence, information in this document may materially change the coding, format and clinical context of patient data. In addition, data may be omitted in some cases. CLINICAL DECISIONS SHOULD BE BASED ON THE PRIMARY CLINICAL RECORDS. [employer] provides no warranty or guarantee of the accuracy or completeness of information in this document.
[2023-10-20 19:32] VITALS: BP 136/110; PULSE 129; TEMP 36.8; O2SAT 100; BMI 51.6
--- NOTE | 2023-10-20 19:40 | ED_ITS ---
HPI - Nausea/Vomiting/Diarrhea General Chief complaint: Nausea/Vomiting/Diarrhea Stated complaint: Nausea/Vomiting/Diarrhea Time Seen by Provider: 10/20/23 19:35 History of Present Illness HPI Narrative: past history of HTN. Has multiple scratches and superficial sores on her forearms from playing with new kitten. Believes some of them are infected. Now presents with recurrent vomiting and diarrhea. Last meal yesterday. No fever or abdominal pain. Past cholecystectomy . States emesis is green. diarrhea watery nonbloody MD elicited complaint: Reports nausea, vomiting and diarrhea Related Data Home Medications ?Medication ?Instructions ?Recorded ?Confirmed buprenorphine 8 mg-naloxone 2 mg film 10/20/23 sublingual film gabapentin 400 mg capsule mg 10/20/23 lisinopril 20 mg tablet mg 10/20/23 Previous Rx's ?Medication ?Instructions ?Recorded buspirone 15 mg tablet 15 mg PO TID 14 days #42 tabs 06/28/23 levothyroxine 150 mcg tablet 150 mcg PO DAILY 14 days #14 tabs 06/28/23 (Synthroid) metoprolol tartrate 25 mg tablet 25 mg PO BID 14 days #28 tabs 06/28/23 venlafaxine 75 mg capsule,extended 75 mg PO BID 14 days #28 caps 06/28/23 release 24 hr Allergies Allergy/AdvReac Type Severity Reaction Status Date / Time naproxen AdvReac Intermediate Blister Verified 10/20/23 19:41 Review of Systems ROS Status of ROS 10 or more systems reviewed and unremark able except as noted in history and below [facility] Social History Smoking status: Former smoker Exam Constitutional Vital Signs, click to edit/add: Last Vital Signs Temp 98.2 F 10/20/23 19:32 Pulse 129 H 10/20/23 19:32 Resp 20 10/20/23 19:32 BP 136/110 H 10/20/23 19:32 Pulse Ox 100 10/20/23 19:32 O2 Del Method Room Air 10/20/23 19:32 Common normals: no apparent distress, oriented x3, no limitations, healthy appearing, alert and well nourished HENMA Common normals: normocephalic and head/scalp atraumatic Eye Common normals: EOMs intact bilaterally and conjunctivae normal Respiratory Common normals: normal respiratory effort, no retractions, no use of accessory muscles and clear to auscultation bilaterally Cardio Common normals: regular rate, regular rhythm, S1 normal heart sound and S2 normal heart sound GI Common normals: Normal to inspection, nondistended, normoactive bowel sounds present, soft to palpation and non-tender Extremity Other: diffuse multiple superficial sores on her arms. Some with associated mild erythema. some are scarred. lesions measure about 1-1.5cm Neuro Common normals: oriented x3, CN's II-XII intact bilaterally, moves all extremities, no focal motor deficits and no sensory deficits noted Psych Appearance: grossly normal Course Vital Signs Vital signs: Vital Signs Temperature 98.2 F 10/20/23 19:32 Pulse Rate 129 H 10/20/23 19:32 Respiratory Rate 20 10/20/23 19:32 Blood Pressure 136/110 H 10/20/23 19:32 Pulse Oximetry 100 10/20/23 19:32 Oxygen Delivery Method Room Air 10/20/23 19:32 Temperature 98.2 F 10/20/23 19:32 Pulse Rate 129 H 10/20/23 19:32 Respiratory Rate 20 10/20/23 19:32 Blood Pressure 136/110 H 10/20/23 19:32 Pulse Oximetry 100 10/20/23 19:32 Oxygen Delivery Method Room Air 10/20/23 19:32 MDM - Nausea/Vomiting/Diarrhea MDM Narrative Medical decision making narrative: one day history of diarrhea and vomiting. No pain. Improved after hydration and zofran. Now requesting to go home. labs acceptable. Discharged home with prescription for zofran Lab Data Labs: Lab Results 10/20/23 10/20/23 Range/Units 19:54 21:04 WBC 11.0 (4.0-11.0) 10^3/uL RBC 5.27 (4.20-5.40) 10^6/uL Hgb 12.9 (12.0-16.0) g/dL Hct 40.7 (36.0-48.0) % MCV 77.2 L (81.0-99.0) fL MCH 24.5 L (26.7-34.0) pg MCHC 31.7 (29.9-35.2) g/dL RDW 16.0 H (11.0-15.0) % Plt Count 340 (150-450) 10^3/uL MPV 9.2 L (9.5-13.5) fL Neut % (Auto) 79.8 H (43.0-75.0) % Lymph % (Auto) 13.1 L (20.5-60.0) % [place] % (Auto) 3.7 (1.7-12.0) % Eos % (Auto) 2.8 (0.9-7.0) % Baso % (Auto) 0.4 (0.2-2.0) % Neut # (Auto) 8.7 H (1.4-6.5) 10^3/uL Lymph # (Auto) 1.4 (1.2-3.8) 10^3/uL [place] # (Auto) 0.4 (0.3-0.8) 10^3/uL Eos # (Auto) 0.3 (0.0-0.7) 10^3/uL Baso # (Auto) 0.0 (0.0-0.1) 10^3/uL Abs Immat Gran (auto) 0.02 (0.00-0.03) 10^3/uL Imm/Tot Granulo (auto) 0.2 (0.0-0.5) % Sodium 137 (136-145) mmol/L Potassium 4.2 (3.5-5.1) mmol/L Chloride 101 (98-107) mmol/L Carbon Dioxide 29.7 (21.0-32.0) mmol/L Anion Gap 10.5 BUN 15.0 (7.0-18.0) mg/dL Creatinine 1.05 H (0.55-1.02) mg/dL Est GFR ( Amer) >60 (>=60) Est GFR (Non-Af Amer) 58 L (>=60) BUN/Creatinine Ratio 14.3 Glucose 117 H (74-106) mg/dL Calcium 8.5 (8.5-10.1) mg/dL Total Bilirubin 0.5 (0.2-1.0) mg/dL AST 55 H (15-37) U/L ALT 57 (14-59) U/L Alkaline Phosphatase 98 (46-116) U/L Total Protein 8.6 H (6.4-8.2) g/dL Albumin 3.3 L (3.4-5.0) g/dL Globulin 5.3 g/dL Albumin/Globulin Ratio 0.6 Lipase 25.0 (16.0-77.0) U/L Urine Color Yellow (YELLOW) Urine Clarity Clear (CLEAR) Urine pH 7.0 (5.0-9.0) Ur Specific [place] 1.020 (1.005-1.025) Urine Protein Negative (NEG/TRACE) mg/dL Urine Glucose (UA) Negative (NEGATIVE) mg/dL Urine Ketones Negative (NEGATIVE) mg/dL Urine Occult Blood Trace-i (NEGATIVE) Urine Nitrite Negative (NEGATIVE) Urine Bilirubin Negative (NEGATIVE) Urine Urobilinogen 2.0 A (0.2-1.0) EU/dL Ur Leukocyte Esterase Negative (NEGATIVE) Urine RBC 0-2 (0-2) #/HPF Urine WBC 0-2 A (NONE SEEN) #/HPF Ur Squamous Epith Cells Moderate A (NONE/RARE) #/LPF Urine Crystals None seen (None Seen) #/HPF Amorphous Sediment Few Urine Bacteria Trace A (NONE SEEN) #/HPF Urine Casts None seen (NONE SEEN) #/LPF Urine Mucus Trace A (NONE SEEN) Ur Culture Indicated? No Discharge Plan Discharge Stand Alone Forms: Portal Instructions Chief Complaint: Nausea/Vomiting/Diarrhea Clinical Impression: Gastroenteritis Patient Disposition: Home, Self-Care Prescriptions / Home Meds: No Action gabapentin 400 mg capsule buprenorphine-naloxone 8-2 mg film lisinopril 20 mg tablet buspirone 15 mg tablet 15 mg PO TID 14 Days Qty: 42 0RF levothyroxine [Synthroid] 150 mcg tablet 150 mcg PO DAILY 14 Days Qty: 14 0RF metoprolol tartrate 25 mg tablet 25 mg PO BID 14 Days Qty: 28 0RF venlafaxine 75 mg capsule,extended release 24hr 75 mg PO BID 14 Days Qty: 28 0RF Print Language: Comoran Instructions: Acute Nausea and Vomiting (ED), Acute Diarrhea (ED) Additional Instructions: follow up with your doctor early next week for recheck Referrals: Physician,Non-Staff, MD [Primary Care Provider] - 1 week
[2023-10-20] MEDS: 0.9 % SODIUM CHLORIDE 1,000 ML 999 ML IV (19:57)
[2023-10-20] MEDS: ONDANSETRON PF 4 MG/2 ML VIAL IV (19:57)
[2023-10-20 20:03] LABS: Basophils Percent Auto 0.4 % (0.2-2.0); Eosinophils Absolute Auto 0.3 10^3/uL (0.0-0.7); Eosinophils Percent Auto 2.8 % (0.9-7.0); Hematocrit 40.7 % (36.0-48.0); Hemoglobin 12.9 g/dL (12.0-16.0); Immature Granulocytes Abs Auto 0.02 10^3/uL (0.00-0.03); Immature Granulocytes Pct Auto 0.2 % (0.0-0.5); Lymphocytes Absolute Auto 1.4 10^3/uL (1.2-3.8); Lymphocytes Percent Auto 13.1 % (20.5-60.0); Mean Corpuscular HGB Conc 31.7 g/dL (29.9-35.2); Mean Corpuscular Hemoglobin 24.5 pg (26.7-34.0); Mean Corpuscular Volume 77.2 fL (81.0-99.0); Mean Platelet Volume 9.2 fL (9.5-13.5); Monocytes Absolute Auto 0.4 10^3/uL (0.3-0.8); Monocytes Percent Auto 3.7 % (1.7-12.0); Neutrophils Absolute Auto 8.7 10^3/uL (1.4-6.5); Neutrophils Percent Auto 79.8 % (43.0-75.0); Platelet Count 340 10^3/uL (150-450); Red Blood Count 5.27 10^6/uL (4.20-5.40)
[2023-10-20 20:18] LABS: Alanine Aminotransferase 57 U/L (14-59); Albumin Globulin Ratio 0.6; Albumin Level 3.3 g/dL (3.4-5.0); Alkaline Phosphatase 98 U/L (46-116); Anion Gap 10.5; Aspartate Amino Transferase 55 U/L (15-37); BUN Creatinine Ratio 14.3; Bilirubin Total 0.5 mg/dL (0.2-1.0); Calcium 8.5 mg/dL (8.5-10.1); Carbon Dioxide 29.7 mmol/L (21.0-32.0); Chloride 101 mmol/L (98-107); Estimated GFR (African America >60 (>=60); Estimated GFR (Non-African Ame 58 (>=60); Globulin 5.3 g/dL; Glucose 117 mg/dL (74-106); Potassium 4.2 mmol/L (3.5-5.1); Sodium 137 mmol/L (136-145); Total Protein 8.6 g/dL (6.4-8.2)
[2023-10-20 21:14] LABS: Bilirubin Urine NEGATIVE (NEGATIVE); Blood Urine TRACE-I (NEGATIVE); Clarity Urine CLEAR (CLEAR); Color Urine YELLOW (YELLOW); Glucose Urine UA NEGATIVE (NEGATIVE); Ketones Urine NEGATIVE (NEGATIVE); Leukocyte Esterase Urine NEGATIVE (NEGATIVE); Nitrite Urine NEGATIVE (NEGATIVE); Protein Urine NEGATIVE (NEG/TRACE)
[2023-10-20 21:17] LABS: Urine Microscopic Indicated YES
[2023-10-20 21:20] LABS: Bacteria Urine TRACE #/HPF (NONE SEEN); Mucus Urine TRACE (NONE SEEN); RBC Urine 0-2 #/HPF (0-2); WBC Urine 0-2 #/HPF (NONE SEEN)
[2023-10-20 21:21] LABS: Amorphous Sediment Urine FEW; Cast Seen? NONE SEEN #/LPF (NONE SEEN); Crystals Seen? None Seen #/HPF (None Seen); Squamous Epithelial Cell Urine MODERATE #/LPF (NONE/RARE); Urine Culture Indicated NO
[2023-10-20] MEDS: ONDANSETRON 4 MG RAPDIS TABLET SL (21:53)
[2023-10-20 22:02] VITALS: BP 135/88; PULSE 115; O2SAT 97
== END 2023-10-20 22:04 | disposition home or self-care (01) ==
PROVIDERS: Emergency Provider Internal Medicine
DX: K52.9 Noninfective gastroenteritis and colitis, unspecified (principal); I10 Essential (primary) hypertension; Z87.891 Personal history of nicotine dependence
CPT/HCPCS: 36415; 80053; 81001; 83690; 85025; 96361; 96374; 99284; J2405; Q0162

== ENCOUNTER 2024-10-15 14:48 | Observation (INO) | payer OTHER, SELFPAY ==
--- OUTSIDE RECORDS SUMMARY | 2015-04-22 03:51 | XMS_ITS | Continuity of Care Document ---
Author Organization [facility] Address [address] [place] [address] Phone Care Team Providers Care Register Repairer Name Role Phone Daren Delilah HOLT Unavailable Unavaila ble Allergies, Adverse Reactions, Alerts Substance Reaction Status Criticality codeine Abdominal pain Active No Informatio n naproxen Facial Edema Active No Information PROPOXYPHENE NAPSYLATE Active No In formation Medications Medication Instructions Dosage Effective Dates (start - stop) Status Comments Complete 14 mg-400 mcg tablet take 1 Tablet by Oral route every day 1 Tablet - Active Procedures Procedure Date OFFICE/OUTPATIENT VISIT, EST OFFICE/OUTPATIENT VISIT, EST URINE TEST OFFICE/OUTPATIENT VISIT, EST URINE TEST OFFICE/OUTPATIENT VISIT, EST [facility] SPECIMEN HANDLING (GC/CHLAMYDIA) Jan RISK ASSISSMENT CARE COORDINATION COUNSELING AND EDUCATION OFFICE/OUTPATIENT VISIT, EST ROUTINE VENIPUNCTURE CARE COORDINATION OFFICE/OUTPATIENT VISIT, EST [facility] SPECIMEN HANDLING (GC/CHLAMYDIA) Oct Thin Prep(R) Imaging System Pap W/Reflex To HR HPV DNA OFFICE/OUTPATIENT VISIT, [facility] ROUTINE VENIPUNCTURE RISK ASSISSMENT COUNSELING AND EDUCATION CARE COORDINATION Urine Culture Drug Abuse Panel OBSTETRIC PANEL W/RFX HIV 1/2 EIA ANTIBODY SCREEN W REFLEXES J Alpha Feta Protein GLUCOSE SERUM OFFICE/OUTPATIENT VISIT, [facility] URINE TEST Advance Directives Directive Yes / No Effective Date File Name No Information Encounters Encounter Description Practice Location Reason(s) For Visit Diagnoses Date Provider Providers Copied on Encounter [facility], [address] [place] [address], [id number] , [place] tel: [phone] [facility] No Information 5 [facility] Delilah. [address] [place] [address], [id number], [place]. tel:[phone] OFFICE/OUTPA TIENT VISIT, [facility], [address] [place] [address], [id number] , [place] tel: [phone] [facility] confirmation (chief complaint) Encounter for test, result weeks gestation of pregnancyHeroin use affecting , antepartumEncount er for supervision of other normal , 2nd trimester [facility] Delilah. [address] [place] [address], [id number], [place]. tel:[phone] OFFICE/OUTPA TIENT VISIT, [facility], [address] [place] [address], [id number] , [place] tel: [phone] [facility] test (chief complaint) examination or test, positive result 3-201 3 Maxi Schneider. [address] [place], [place], [id number], [place]. tel:[phone] OFFICE/OUTPA TIENT VISIT, [facility], [address] [place] [address], [id number] , [place] tel: [phone] [facility] No Information 0- 2 Landon Blood. [address] [place], [place], [id number]. tel:[phone] OFFICE/OUTPA TIENT VISIT, [facility], [address] [place], [place], [id number] , [place] tel: [phone] [facility] Routine PN Visit (chief complaint) Supervision of normal first 2 Agapito Dunn. [address] [place], [place], [id number], [place]. tel:[phone] OFFICE/OUTPA TIENT VISIT, [facility], [address] [place], [place], [id number] , [place] tel: [phone] [facility] Routine PN Visit (chief complaint) Supervision of normal first 2 Agapito Dunn. [address] [place] [address], [id number], [place]. tel:[phone] OFFICE/OUTPA TIENT VISIT, [facility], [address] [place], [place], [id number] , [place] tel: [phone] [facility] No Information 2 Agapito Dunn. [address] [place], [place], [id number], [place]. tel:[phone] OFFICE/OUTPA TIENT VISIT, [facility], [address] [place], [place], [id number] , [place] tel: [phone] [facility] No Information 2 Maxi Schneider. [address] [place], [place], [id number], [place]. tel:[phone] Family History Family Member Type Diagnosis Age At Onset Sister Problem (finding) Alive and well Father Problem (finding) asthma Maternal grandmother Problem (finding) malignant neopl asm of lung Mother Problem (finding) Alive and well Paternal aunt Problem (finding) Diabetes mellitus Sister Problem (finding) asthma Brother Problem (finding) asthma Father Problem (finding) Alive and well Paternal uncle Problem (finding) Diabetes mellitus Maternal grandmother Problem (finding) hypertension Brother Problem (finding) Alive and well Payers Payer name Insurance type Covered republican ID Authoriza tion(s) Medicaid [facility] [id number] Social History Type Description Quantity Date Captured Comments Alcohol Use Details Unknown Caffeine Use Details Unknown Tobacco Use Status Smoking Status No Information Sex Female Sexual Orientation Straight or heterosexual Chief Complaint And Reason For Visit No Information Reason For Referral Reason For Referral No Information Plan Of Treatment Date Type Action Status Goal TD Vaccine. Due on due Goal Breast exam. Due on 013 due Goal Tdap. Due on due Goal Depression screening. Due on due Goal H&P. Due on due Goal Tdap. Due on due Goal Depression screening. Due on due Goal TD Vaccine. Due on due Goal Breast exam. Due on 013 due Goal H&P. Due on due Goal Tobacco cessation counseling completed Referral Ordered: Obstetrics (related to Encounter for test, result positive) ordered Referral Ordered: Referrals: Obstetrics. Assume care ordered History Of Present Illness Encounter Date Complaint History Of Prese nt Illness confirmation Functional Status Date Functional Assessmen t No Information Instructions Date Instruction Additional Infor mation No Information Assessments Type Assessment Date No Information Patient Care Teams Name Effective Dates (start - stop) Status Members No Information
--- OUTSIDE RECORDS SUMMARY | 2023-06-21 10:30 | XMS_ITS ---
Author Organization [facility] Address [address] [place], [place] [id number] Care Team Providers Care Baggage Porter Head Name Role Phone Kody Montes De Oca Primary Care Provider [phone] REASON FOR VISIT med refill htn/thyroid/anx Social History Sex Assigned At : Social History Observation Description Sex Assigned At Female Encounters Encounter Location Date Provider Diagnosis Main [address] [place], [place] [id number] 06/21/2023 Kody Montes De Oca Plan Of Treatment No Information Progress Notes * Barbara RAI LDOB:[birth year] (39 yo F)Acc No.[id number]:06/21/2023 Medical Note Patient: Conrado GILMORE Barbara Petey Provider: Lizy Montes De Oca PA-C :1985 A ge:38 Y S ex:Female Date:06/21/2023 Address:[address] [place] [address], [place], [id number] Subjective: * Chief Complaints: * 1 . Med refill htn/thyroid/anx. * Medical History: Objective: * Vitals: Assessment: Plan: * Treatment: * Billing Information: * Visit Code: * Procedure Codes: * Electronic signature of DASHAWN Barron on 10/16/2024 at 06:01 AM EDT Sign off status: Pending * Provider: Lizy Montes De Oca PA-C Date: 0 06/21/2023 Generated for Printi ng/Faxing/eTransmitting on: 0 10/16/2024 06:01 AM EDT
[2024-10-15] VITALS (31 sets, daily range): BP systolic 101–154; BP diastolic 62–97; PULSE 77–138; TEMP 36.7–37.8; O2SAT 91–100; BMI 51.6; BMI 53.2
[2024-10-15] MEDS: IPRATROPIUM/ALBUTEROL SULFATE 3 ML AMPUL.NEB IH ×3 (15:45→22:44)
--- NOTE | 2024-10-15 15:59 | ECG_ITS ---
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 Measurements Intervals [place] Rate: 108 P: 75 RI: 166 QRS: -67 QRSD: 88 T: 37 QT: 330 QTc: 393 Interpretive Statements 1120 Sinus tachycardia 2630 Left anterior fascicular block 3114 Cannot rule out anterior myocardial infarction, age undetermined 8102 Low QRS voltage in chest leads 9150 abnormal ECG Compared to ECG 06/28/2023 16:23:18 Myocardial infarct finding now present Electronically Signed On 10-15-2024 21:54:19 EDT by WILL WIGGINS M.D.
[2024-10-15 17:00] LABS: Basophils Absolute Auto 0.1 10^3/uL (0.0-0.1); Basophils Percent Auto 0.8 % (0.2-2.0); Eosinophils Absolute Auto 0.4 10^3/uL (0.0-0.7); Eosinophils Percent Auto 4.7 % (0.9-7.0); Hematocrit 35.5 % (36.0-48.0); Hemoglobin 11.2 g/dL (12.0-16.0); Immature Granulocytes Abs Auto 0.03 10^3/uL (0.00-0.03); Immature Granulocytes Pct Auto 0.3 % (0.0-0.5); Lymphocytes Absolute Auto 2.7 10^3/uL (1.2-3.8); Lymphocytes Percent Auto 29.9 % (20.5-60.0); Mean Corpuscular HGB Conc 31.5 g/dL (29.9-35.2); Mean Corpuscular Hemoglobin 24.1 pg (26.7-34.0); Mean Corpuscular Volume 76.5 fL (81.0-99.0); Mean Platelet Volume 8.8 fL (9.5-13.5); Monocytes Absolute Auto 0.6 10^3/uL (0.3-0.8); Neutrophils Absolute Auto 5.2 10^3/uL (1.4-6.5); Neutrophils Percent Auto 57.3 % (43.0-75.0); Platelet Count 302 10^3/uL (150-450); Red Blood Count 4.64 10^6/uL (4.20-5.40); Red Cell Distribution Width 18.6 % (11.0-15.0); White Blood Count 9.2 10^3/uL (4.0-11.0)
[2024-10-15] MEDS: METHYLPREDNISOLONE SOD SUCC PF 125 MG/2 ML VIAL IVP (17:04)
--- NOTE | 2024-10-15 17:15 | ED.GENADUL1 ---
Documented by User: Doris Vega 10/15/24 17:23 HPI HPI - General Adult General Chief complaint: Upper Respiratory Infection Stated complaint: COUGH CONJESTION DIZZINESS EARACHE Time Seen by Provider: 10/15/24 15:21 Source: patient Mode of arrival: walk-in Limitations: no limitations History of Present Illness HPI narrative: 39-year-old female presents here with a chief complaint of difficulty breathing. She has a history of asthma. She states she quit smoking 8 years ago. States over the last week she has had upper respiratory congestion and cough. She woke this morning was coughing and she could not catch her breath. She states she felt like she could not breathe. Her son is also here with similar symptoms as far as upper respiratory infection. She is not currently febrile. She was on oxygen when I went into the room to see her. She had been here in the emergency room waiting to be seen due to the volume. She is currently stable. She is able to speak full sentences. She is up sitting at bedside talking to her son with oxygen on 2l. upon arrival pt was hypoxic, oxygen placed. she was hypoxic in the low 90s upper 80s Related Data Home Medications ?Medication ?Instructions ?Recorded ?Confirmed buprenorphine 8 mg-naloxone 2 mg 2 film buccal Q24H 10/20/23 10/15/24 sublingual film lisinopril 20 mg tablet 20 mg PO DAILY 10/20/23 10/15/24 albuterol sulfate 90 mcg/actuation 2 inh inhalation Q6H PRN shortness 10/15/24 10/15/24 aerosol inhaler of breath or wheezing buspirone 15 mg tablet 15 mg PO TID 10/15/24 10/15/24 docusate sodium 100 mg capsule 200 mg PO BID 10/15/24 10/15/24 ergocalciferol (vitamin D2) 1,250 1,250 mcg PO .twice per week 10/15/24 10/15/24 mcg (50,000 unit) capsule ferrous sulfate 325 mg (65 mg 325 mg PO DAILY 10/15/24 10/15/24 iron) tablet (FeroSul) levothyroxine 175 mcg tablet 175 mcg PO .QD 10/15/24 10/15/24 venlafaxine 75 mg capsule,extended 150 mg PO .QD 10/15/24 10/15/24 release 24 hr Previous Rx's ?Medication ?Instructions ?Recorded metoprolol tartrate 25 mg tablet 25 mg PO BID 14 days #28 tabs 06/28/23 Allergies Allergy/AdvReac Type Severity Reaction Status Date / Time naproxen AdvReac Intermediate Blister Verified 10/15/24 15:04 Opioid HPI Opioid Management Most Recent Opioid Data: Last Pain Assessment Today, 19:43 Last ORT Total Score 20 Today, 18:25 Last ORT Risk Category High Risk Today, 18:25 Review of Systems ROS Status of ROS 10 or more systems reviewed and unremarkable except as noted in history and below PFSH PFS Medical History (Updated 10/15/24 @ 18:13 by Mildred Irizarry RN) Hypertension ?I10 - Essential (primary) hypertension (ICD-10) Depression ?F32.A - Depression, unspecified (ICD-10) deliv due to previous difficult deliv, deliv, curr hospitaliz ?O82 - Encounter for delivery without indication (ICD-10) ?Z87.59 - Personal history of other complications of , childbirth and the puerperium (ICD-10) Anxiety and depression ?F41.9 - Anxiety disorder, unspecified (ICD-10) ?F32.A - Depression, unspecified (ICD-10) Asthma ?J45.909 - Unspecified asthma, uncomplicated (ICD-10) Surgical History (Updated 10/15/24 @ 18:13 by Mildred Irizarry RN) History of delivery ?Z98.891 - History of uterine scar from previous surgery (ICD-10) History of ankle surgery ?Z98.890 - Other specified postprocedural states (ICD-10) History of cholecystectomy ?Z90.49 - Acquired absence of other specified parts of digestive tract (ICD-10) Family History (Updated 10/15/24 @ 18:17 by Mildred Irizarry RN) Grandmother Family history of stroke Family history of hypertension Family history of cancer Grandfather Family history of myocardial infarction Aunt Family history of diabetes mellitus Family history of CHF (congestive heart failure) Uncle Family history of diabetes mellitus Mother Family history of COPD (chronic obstructive pulmonary disease) Father Family history of COPD (chronic obstructive pulmonary disease) Social History (Updated 10/15/24 @ 18:18 by Mildred Irizarry RN) Within the past year, how often did you have a drink containing alcohol: never Score interpretation: A score less than 3 is consistent with normal alcohol consumption. Smoking status: Former smoker Non-prescribed substance use: former substance user and opiods/painkillers Non-prescribed substance use details: Heroin Highest level of school completed/degree received: some college, no degree Little interest or pleasure in doing things: not at all Feeling down, depressed, or hopeless: not at all Exam Narrative Exam Narrative: All Systems are negative except as noted/marked.All systems reviewed and otherwise negative Nurses note and vital signs reviewed and patient is not hypoxic. General: The patient appears well and in no apparent distress. Patient is resting comfortably on cart. Skin: Warm, dry, no pallor noted. There is no rash noted. Head: Normocephalic, atraumatic Eye: Normal conjunctiva, no drainage, EOMI. PERRL Ears, Nose, Mouth, and Throat: oral mucosa is moist. Nares patent. Mouth without vesicles. Ear canals patent. Tm's without Erythema Cardiovascular: Regular Rate and Rhythm Respiratory: Harsh nonproductive cough with scattered in-store expiratory wheezing throughout posterior lower lung mary worse than anterior, minimal accessory muscle usage post breathing treatment Musculoskeletal: The patient has no evidence of calf tenderness, no pitting edema, symmetrical pulses noted bilaterally Neurological: A&O x4, normal speech Psychiatric: Cooperative Constitutional Vital Signs, click to edit/add: Last Vital Signs Temp 100.0 F 10/15/24 19:43 Pulse 104 H 10/15/24 20:00 Resp 20 10/15/24 19:43 BP 129/78 10/15/24 19:43 Pulse Ox 95 10/15/24 19:43 O2 Del Method Nasal Cannula 10/15/24 19:43 O2 Flow Rate 2 10/15/24 19:43 Course Vital Signs Vital signs: Vital Signs Temperature 99.3 F 10/15/24 15:01 Pulse Rate 138 H 10/15/24 15:01 Respiratory Rate 22 H 10/15/24 15:01 Blood Pressure 154/97 H 10/15/24 15:01 Pulse Oximetry 91 L 10/15/24 15:01 Oxygen Delivery Method Room Air 10/15/24 15:01 Temperature 100.0 F 10/15/24 19:43 Pulse Rate 104 H 10/15/24 20:00 Respiratory Rate 20 10/15/24 19:43 Blood Pressure 129/78 10/15/24 19:43 Pulse Oximetry 95 10/15/24 19:43 Oxygen Delivery Method Nasal Cannula 10/15/24 19:43 Oxygen Delivery Flow Rate 2 10/15/24 19:43 Medical Decision Making MDM Narrative Medical decision making narrative: 39-year-old female presents here with a chief complaint of difficulty breathing. She has a history of asthma. She states she quit smoking 8 years ago. States over the last week she has had upper respiratory congestion and cough. She woke this morning was coughing and she could not catch her breath. She states she felt like she could not breathe. Her son is also here with similar symptoms as far as upper respiratory infection. She is not currently febrile. She was on oxygen when I went into the room to see her. She had been here in the emergency room waiting to be seen due to the volume. She is currently stable. She is able to speak full sentences. She is up sitting at bedside talking to her son with oxygen on 2l. upon arrival pt was hypoxic, oxygen placed. she was hypoxic in the low 90s upper 80s Patient presented to the emergency room with chief complaint of shortness of breath. She has a history of asthma. She has been using her breathing treatment at home with little relief. States she has been sick for approximately 1 week. Upon arrival to the emergency room patient was on oxygen due to being hypoxic. Breathing treatments were given. Patient was also given IV Solu-Medrol. I did attempt to remove the patient's oxygen and her saturation really dropped down to 88% with good waveform. Patient is able to speak full sentences but does come easily winded if she tries to walk or talk. Due to patient's history of asthma I am going to admit her here to the hospital. She will continue to get IV steroids. I talked to Dr. See concerning this patient's care. Patient had not been admitted to the hospital for asthma in the past. Chest x-ray showed no acute infiltrates or pneumothorax read by radiology. Initial blood work is currently pending the CBC does look within normal limits. Patient is stable at this time admission for hypoxia asthma exacerbation and bronchitis Differential Diagnosis Differential Diagnosis: Pneumonia, asthma, hypoxia Medical Records Medical records reviewed: Yes I reviewed the patient's medical records Lab Data Lab results reviewed: Yes I reviewed the patient's lab results Labs: Lab Results 10/15/24 Range/Units 16:46 WBC 9.2 (4.0-11.0) 10^3/uL RBC 4.64 (4.20-5.40) 10^6/uL Hgb 11.2 L (12.0-16.0) g/dL Hct 35.5 L (36.0-48.0) % MCV 76.5 L (81.0-99.0) fL MCH 24.1 L (26.7-34.0) pg MCHC 31.5 (29.9-35.2) g/dL RDW 18.6 H (11.0-15.0) % Plt Count 302 (150-450) 10^3/uL MPV 8.8 L (9.5-13.5) fL Neut % (Auto) 57.3 (43.0-75.0) % Lymph % (Auto) 29.9 (20.5-60.0) % [place] % (Auto) 7.0 (1.7-12.0) % Eos % (Auto) 4.7 (0.9-7.0) % Baso % (Auto) 0.8 (0.2-2.0) % Neut # (Auto) 5.2 (1.4-6.5) 10^3/uL Lymph # (Auto) 2.7 (1.2-3.8) 10^3/uL [place] # (Auto) 0.6 (0.3-0.8) 10^3/uL Eos # (Auto) 0.4 (0.0-0.7) 10^3/uL Baso # (Auto) 0.1 (0.0-0.1) 10^3/uL Abs Immat Gran (auto) 0.03 (0.00-0.03) 10^3/uL Imm/Tot Granulo (auto) 0.3 (0.0-0.5) % D-Dimer 0.35 (<=0.59) mg/L FEU Sodium 139 (136-145) mmol/L Potassium 3.2 L (3.5-5.1) mmol/L Chloride 99 (98-107) mmol/L Carbon Dioxide 33.2 H (21.0-32.0) mmol/L Anion Gap 10.0 BUN 11.0 (7.0-18.0) mg/dL Creatinine 0.99 (0.55-1.02) mg/dL Est GFR ( Amer) >60 (>=60 mL/min/1.73m^2) Est GFR (Non-Af Amer) >60 (>=60 mL/min/1.73m^2) BUN/Creatinine Ratio 11.1 Glucose 133 H (74-106) mg/dL Calcium 9.0 (8.5-10.1) mg/dL Magnesium 1.8 (1.8-2.4) mg/dL Total Bilirubin 0.2 (0.2-1.0) mg/dL AST 24 (15-37) U/L ALT 26 (14-59) U/L Alkaline Phosphatase 94 (46-116) U/L Total Protein 7.8 (6.4-8.2) g/dL Albumin 3.1 L (3.4-5.0) g/dL Globulin 4.7 g/dL Albumin/Globulin Ratio 0.7 Imaging Data Chest x-ray: Radiologist's impression: Radiology reading shows no acute cardiopulmonary process no infiltrate pleural effusion or pneumothorax no acute osseous abnormality ECG Data Interpretation: 1518 sinus tachycardia with a rate of 108 bpm ND interval 106 6 ms QRS duration [address] elevation or depression no STEMI Discharge Plan Discharge Chief Complaint: Upper Respiratory Infection Clinical Impression: Hypoxia, Bronchitis, Asthma exacerbation Patient Disposition: Admitted as Observation Time of Disposition Decision: 17:08 Condition: Fair Discharge Date/Time: 10/15/24 17:58 Documented by User: Oliver Harrison MD 10/15/24 20:19 HPI HPI - General Adult General Chief complaint: Upper Respiratory Infection Stated complaint: COUGH CONJESTION DIZZINESS EARACHE Time Seen by Provider: 10/15/24 15:21 Related Data Home Medications ?Medication ?Instructions ?Recorded ?Confirmed buprenorphine 8 mg-naloxone 2 mg 2 film buccal Q24H 10/20/23 10/15/24 sublingual film lisinopril 20 mg tablet 20 mg PO DAILY 10/20/23 10/15/24 albuterol sulfate 90 mcg/actuation 2 inh inhalation Q6H PRN shortness 10/15/24 10/15/24 aerosol inhaler of breath or wheezing buspirone 15 mg tablet 15 mg PO TID 10/15/24 10/15/24 docusate sodium 100 mg capsule 200 mg PO BID 10/15/24 10/15/24 ergocalciferol (vitamin D2) 1,250 1,250 mcg PO .twice per week 10/15/24 10/15/24 mcg (50,000 unit) capsule ferrous sulfate 325 mg (65 mg 325 mg PO DAILY 10/15/24 10/15/24 iron) tablet (FeroSul) levothyroxine 175 mcg tablet 175 mcg PO .QD 10/15/24 10/15/24 venlafaxine 75 mg capsule,extended 150 mg PO .QD 10/15/24 10/15/24 release 24 hr Previous Rx's ?Medication ?Instructions ?Recorded metoprolol tartrate 25 mg tablet 25 mg PO BID 14 days #28 tabs 06/28/23 Allergies Allergy/AdvReac Type Severity Reaction Status Date / Time naproxen AdvReac Intermediate Blister Verified 10/15/24 15:04 Opioid HPI Opioid Management Most Recent Opioid Data: Last Pain Assessment Today, 19:43 Last ORT Total Score 20 Today, 18:25 Last ORT Risk Category High Risk Today, 18:25 [facility] Medical History (Updated 10/15/24 @ 18:13 by Mlidred Irizarry, MARTIN) Hypertension ?I10 - Essential (primary) hypertension (ICD-10) Depression ?F32.A - Depression, unspecified (ICD-10) deliv due to previous difficult deliv, deliv, curr hospitaliz ?O82 - Encounter for delivery without indication (ICD-10) ?Z87.59 - Personal history of other complications of , childbirth and the puerperium (ICD-10) Anxiety and depression ?F41.9 - Anxiety disorder, unspecified (ICD-10) ?F32.A - Depression, unspecified (ICD-10) Asthma ?J45.909 - Unspecified asthma, uncomplicated (ICD-10) Surgical History (Updated 10/15/24 @ 18:13 by Mildred Irizarry RN) History of delivery ?Z98.891 - History of uterine scar from previous surgery (ICD-10) History of ankle surgery ?Z98.890 - Other specified postprocedural states (ICD-10) History of cholecystectomy ?Z90.49 - Acquired absence of other specified parts of digestive tract (ICD-10) Family History (Updated 10/15/24 @ 18:17 by Mildred Irizarry RN) Grandmother Family history of stroke Family history of hypertension Family history of cancer Grandfather Family history of myocardial infarction Aunt Family history of diabetes mellitus Family history of CHF (congestive heart failure) Uncle Family history of diabetes mellitus Mother Family history of COPD (chronic obstructive pulmonary disease) Father Family history of COPD (chronic obstructive pulmonary disease) Social History (Updated 10/15/24 @ 18:18 by Mildred Irizarry RN) Within the past year, how often did you have a drink containing alcohol: never Score interpretation: A score less than 3 is consistent with normal alcohol consumption. Smoking status: Former smoker Non-prescribed substance use: former substance user and opiods/painkillers Non-prescribed substance use details: Heroin Highest level of school completed/degree received: some college, no degree Little interest or pleasure in doing things: not at all Feeling down, depressed, or hopeless: not at all Exam Constitutional Vital Signs, click to edit/add: Last Vital Signs Temp 100.0 F 10/15/24 19:43 Pulse 104 H 10/15/24 20:00 Resp 20 10/15/24 19:43 BP 129/78 10/15/24 19:43 Pulse Ox 95 10/15/24 19:43 O2 Del Method Nasal Cannula 10/15/24 19:43 O2 Flow Rate 2 10/15/24 19:43 Course Vital Signs Vital signs: Vital Signs Temperature 99.3 F 10/15/24 15:01 Pulse Rate 138 H 10/15/24 15:01 Respiratory Rate 22 H 10/15/24 15:01 Blood Pressure 154/97 H 10/15/24 15:01 Pulse Oximetry 91 L 10/15/24 15:01 Oxygen Delivery Method Room Air 10/15/24 15:01 Temperature 100.0 F 10/15/24 19:43 Pulse Rate 104 H 10/15/24 20:00 Respiratory Rate 20 10/15/24 19:43 Blood Pressure 129/78 10/15/24 19:43 Pulse Oximetry 95 10/15/24 19:43 Oxygen Delivery Method Nasal Cannula 10/15/24 19:43 Oxygen Delivery Flow Rate 2 10/15/24 19:43 Medical Decision Making MDM Narrative Medical decision making narrative: 39-year-old female presents here with a chief complaint of difficulty breathing. She has a history of asthma. She states she quit smoking 8 years ago. States over the last week she has had upper respiratory congestion and cough. She woke this morning was coughing and she could not catch her breath. She states she felt like she could not breathe. Her son is also here with similar symptoms as far as upper respiratory infection. She is not currently febrile. She was on oxygen when I went into the room to see her. She had been here in the emergency room waiting to be seen due to the volume. She is currently stable. She is able to speak full sentences. She is up sitting at bedside talking to her son with oxygen on 2l. upon arrival pt was hypoxic, oxygen placed. she was hypoxic in the low 90s upper 80s Patient presented to the emergency room with chief complaint of shortness of breath. She has a history of asthma. She has been using her breathing treatment at home with little relief. States she has been sick for approximately 1 week. Upon arrival to the emergency room patient was on oxygen due to being hypoxic. Breathing treatments were given. Patient was also given IV Solu-Medrol. I did attempt to remove the patient's oxygen and her saturation really dropped down to 88% with good waveform. Patient is able to speak full sentences but does come easily winded if she tries to walk or talk. Due to patient's history of asthma I am going to admit her here to the hospital. She will continue to get IV steroids. I talked to Dr. See concerning this patient's care. Patient had not been admitted to the hospital for asthma in the past. Chest x-ray showed no acute infiltrates or pneumothorax read by radiology. Initial blood work is currently pending the CBC does look within normal limits. Patient is stable at this time admission for hypoxia asthma exacerbation and bronchitis I, Dr Harrison, have reviewed the above progress note and course of action in the ER; agree with the above. I have personally gone over history and physical, and discussed disposition and treatment plan with the PA. Lab Data Labs: Lab Results 10/15/24 Range/Units 16:46 WBC 9.2 (4.0-11.0) 10^3/uL RBC 4.64 (4.20-5.40) 10^6/uL Hgb 11.2 L (12.0-16.0) g/dL Hct 35.5 L (36.0-48.0) % MCV 76.5 L (81.0-99.0) fL MCH 24.1 L (26.7-34.0) pg MCHC 31.5 (29.9-35.2) g/dL RDW 18.6 H (11.0-15.0) % Plt Count 302 (150-450) 10^3/uL MPV 8.8 L (9.5-13.5) fL Neut % (Auto) 57.3 (43.0-75.0) % Lymph % (Auto) 29.9 (20.5-60.0) % [place] % (Auto) 7.0 (1.7-12.0) % Eos % (Auto) 4.7 (0.9-7.0) % Baso % (Auto) 0.8 (0.2-2.0) % Neut # (Auto) 5.2 (1.4-6.5) 10^3/uL Lymph # (Auto) 2.7 (1.2-3.8) 10^3/uL [place] # (Auto) 0.6 (0.3-0.8) 10^3/uL Eos # (Auto) 0.4 (0.0-0.7) 10^3/uL Baso # (Auto) 0.1 (0.0-0.1) 10^3/uL Abs Immat Gran (auto) 0.03 (0.00-0.03) 10^3/uL Imm/Tot Granulo (auto) 0.3 (0.0-0.5) % D-Dimer 0.35 (<=0.59) mg/L FEU Sodium 139 (136-145) mmol/L Potassium 3.2 L (3.5-5.1) mmol/L Chloride 99 (98-107) mmol/L Carbon Dioxide 33.2 H (21.0-32.0) mmol/L Anion Gap 10.0 BUN 11.0 (7.0-18.0) mg/dL Creatinine 0.99 (0.55-1.02) mg/dL Est GFR ( Amer) >60 (>=60 mL/min/1.73m^2) Est GFR (Non-Af Amer) >60 (>=60 mL/min/1.73m^2) BUN/Creatinine Ratio 11.1 Glucose 133 H (74-106) mg/dL Calcium 9.0 (8.5-10.1) mg/dL Magnesium 1.8 (1.8-2.4) mg/dL Total Bilirubin 0.2 (0.2-1.0) mg/dL AST 24 (15-37) U/L ALT 26 (14-59) U/L Alkaline Phosphatase 94 (46-116) U/L Total Protein 7.8 (6.4-8.2) g/dL Albumin 3.1 L (3.4-5.0) g/dL Globulin 4.7 g/dL Albumin/Globulin Ratio 0.7 Discharge Plan Discharge Chief Complaint: Upper Respiratory Infection Clinical Impression: Hypoxia, Bronchitis, Asthma exacerbation Patient Disposition: Admitted as Observation Time of Disposition Decision: 17:08 Condition: Fair Discharge Date/Time: 10/15/24 17:58
[2024-10-15 17:18] LABS: Alanine Aminotransferase 26 U/L (14-59); Albumin Globulin Ratio 0.7; Albumin Level 3.1 g/dL (3.4-5.0); Alkaline Phosphatase 94 U/L (46-116); Aspartate Amino Transferase 24 U/L (15-37); BUN Creatinine Ratio 11.1; Bilirubin Total 0.2 mg/dL (0.2-1.0); Carbon Dioxide 33.2 mmol/L (21.0-32.0); Chloride 99 mmol/L (98-107); Estimated GFR (African America >60 (>=60 mL/min/1.73m^2); Estimated GFR (Non-African Ame >60 (>=60 mL/min/1.73m^2); Globulin 4.7 g/dL; Glucose 133 mg/dL (74-106); Potassium 3.2 mmol/L (3.5-5.1); Sodium 139 mmol/L (136-145); Total Protein 7.8 g/dL (6.4-8.2)
[2024-10-15 17:37] LABS: Magnesium 1.8 mg/dL (1.8-2.4)
[2024-10-15 17:47] LABS: D Dimer 0.35 mg/L FEU (<=0.59)
[2024-10-15] MEDS: METHYLPREDNISOLONE SOD SUCC PF 40 MG/ML VIAL IVP (21:26)
[2024-10-15] MEDS: GUAIFENESIN 200 MG/DEXTROMETHORPHAN 20 MG 10 ML UNIT DOSE CUP PO (21:27)
[2024-10-15] MEDS: METOPROLOL TARTRATE 25 MG TABLET PO (21:27)
[2024-10-15] MEDS: ACETAMINOPHEN 500 MG TABLET 1000 MG PO (21:27)
[2024-10-15] MEDS: BUSPIRONE HCL 15 MG TABLET PO (21:27)
[2024-10-15] MEDS: AZITHROMYCIN 500 MG in 0.9 % SODIUM CHLORIDE 250 ML 250 MG IV (21:28)
[2024-10-15] MEDS: DOCUSATE SODIUM 100 MG CAPSULE 200 MG PO (21:28)
[2024-10-15] MEDS: ENOXAPARIN SODIUM 40 MG/0.4 ML SYRINGE SUBQ (21:28)
[2024-10-15] MEDS: BUDESONIDE 0.5 MG/2 ML AMPULE NEB IH (22:44)
[2024-10-16] VITALS (18 sets, daily range): BP systolic 99–122; BP diastolic 62–72; PULSE 62–106; TEMP 36.5–36.7; O2SAT 90–97
[2024-10-16] MEDS: METHYLPREDNISOLONE SOD SUCC PF 40 MG/ML VIAL IVP ×3 (03:08→16:18)
[2024-10-16] MEDS: IPRATROPIUM/ALBUTEROL SULFATE 3 ML AMPUL.NEB IH ×3 (04:45→16:27)
[2024-10-16] MEDS: BUSPIRONE HCL 15 MG TABLET PO ×2 (05:27→14:41)
[2024-10-16 05:47] LABS: Basophils Percent Auto 0.3 % (0.2-2.0); Eosinophils Percent Auto 0.1 % (0.9-7.0); Hemoglobin 11.4 g/dL (12.0-16.0); Immature Granulocytes Abs Auto 0.07 10^3/uL (0.00-0.03); Immature Granulocytes Pct Auto 0.7 % (0.0-0.5); Lymphocytes Percent Auto 20.2 % (20.5-60.0); Mean Corpuscular HGB Conc 31.7 g/dL (29.9-35.2); Mean Corpuscular Hemoglobin 24.4 pg (26.7-34.0); Mean Corpuscular Volume 77.1 fL (81.0-99.0); Mean Platelet Volume 9.2 fL (9.5-13.5); Monocytes Absolute Auto 0.2 10^3/uL (0.3-0.8); Monocytes Percent Auto 1.9 % (1.7-12.0); Neutrophils Absolute Auto 7.5 10^3/uL (1.4-6.5); Neutrophils Percent Auto 76.8 % (43.0-75.0); Platelet Count 336 10^3/uL (150-450); Red Blood Count 4.67 10^6/uL (4.20-5.40); Red Cell Distribution Width 18.8 % (11.0-15.0); White Blood Count 9.7 10^3/uL (4.0-11.0)
--- OUTSIDE RECORDS SUMMARY | 2024-10-16 06:00 | XMS_ITS | CCD ---
Author Organization [facility] Care Team Providers Care Dictating Transcribing Machine Servicer Name Role Phone HOMERO, DR HOWE Primary Care Unavailable DIONI, DR OTERO Admitting Unavailable HAY, DR OTERO Attending Unavailable MARLENE, DASHAWN SALDANA Consulting Unavailable HAY, DR OTERO Consulting Unavailable TROTTAP March Consulting Unavailable Provider, None Primary Care Unavailable Nhan Dailey Consulting Unavailable Nosair, Morgan Attending Unavailable Nosair, Morgan Admitting Unavailable StaArslan stanton Attending Unavailable StaltArslan can Admitting Unavailable Provider, None Primary Care Unavailable Provider, None Primary Care Unavailable Nhan Dailey Attending Unavailable Madelin, Barbara Petey Primary Care Physician [phone] Madelin, [employer] SUPERVISOR Barbara L Attending Unavailable Madelin, [employer] SUPERVISOR Barbara L Attending Unavailable Madelin, [employer] SUPERVISOR Barbara L Attending Unavailable Madelin, [employer] SUPERVISOR Barbara L Admitting Unavailable Madelin, [employer] SUPERVISOR Barbara L Attending Unavailable Madelin, [employer] SUPERVISOR Barbara L Attending Unavailable Madelin, [employer] SUPERVISOR Barbara L Attending Unavailable Madelin, Barbara L Attending Unavailable Madelin, Barbara L Admitting Unavailable Madelin, Barbara L Attending Unavailable Madelin, Barbara L Attending Unavailable Allergies Allergy Classification Reported Allergen(s) Allergy Type Date of Onset Reaction(s) Facility (1 source) Codeine Drug Allergy 5 [facility] Repository (1 source) Naproxen Drug Allergy 5 [facility] Repository (1 source) Darvocet-N 100 Drug allergy (disorder) 5 [facility] Repository (1 source) Doxycycline; Translations: [doxycycline] Drug Allergy [facility] Repository (5 sources) Naproxen; Translations: [naproxen] Drug Allergy Swelling (finding) [facility] Repository Medications Current Medications Medication Drug Class(es) Dates Sig (Normalized) Sig (Original) busPIRone hydrochloride 15 mg oral tablet (1 source) Start: 01-06-2024 take 1 tablet by mouth three times daily busPIRone 15 mg Tab 15 mg = 1 tab(s), Oral, TID, # 270 tab(s), Refills(s) 4, Pharmacy: [facility] 1155, 165.5, cm, 07/01/23 13:32:00 EST, Height/Length Dosing, 149.8, kg, 07/01/23 13:32:00 EST, Weight Dosing Start Date: 01/06/24 Status: Ordered levothyroxine sodium 0.15 mg oral tablet (1 source) l-Thyroxine Start: 01-06-2024 take 1 tablet by mouth once daily levothyroxine 150 mcg (0.15 mg) Tab 150 mcg = 1 tab(s), Oral, Daily, 0 Refill(s), # 90 tab(s), Refills(s) 4, Pharmacy: [facility] 1155, 165.5, cm, 07/01/23 13:32:00 EST, Height/Length Dosing, 149.8, kg, 07/01/23 13:32:00 EST, Weight Dosing Start Date: 01/06/24 Status: Ordered lisinopril 20 mg oral tablet (1 source) Angiotensin Converting Enzyme Inhibitor Start: 01-06-2024 take 1 tablet by mouth once daily lisinopril 20 mg Tab 20 mg = 1 tab(s), Oral, Daily, # 90 tab(s), Refills(s) 4, Pharmacy: [facility] 1155, 165.5, cm, 07/01/23 13:32:00 EST, Height/Length Dosing, 149.8, kg, 07/01/23 13:32:00 EST, Weight Dosing Start Date: 01/06/24 Status: Ordered metoprolol tartrate 25 mg oral tablet (1 source) beta-Adrenergic Alley Start: 01-06-2024 take 1 tablet by mouth twice daily ondansetron 4 mg disintegrating oral tablet (1 source) Serotonin-3 Receptor Antagonist Start: 07-01-2023 ondansetron 4 mg Dis Tab 12 EA, 0 Refill(s), DISSOLVE ONE TABLET BY MOUTH EVERY 6 HOURS NEEDED FOR NAUSEA AND VOMITING, Refills(s) 0 Start Date: 07/01/23 Status: Ordered 24 hr venlafaxine 75 mg extended release oral capsule (1 source) Serotonin and Norepinephrine Reuptake Inhibitor Start: 06-29-2024 take 2 capsules by mouth once daily venlafaxine 75 mg Cap-ER 150 mg = 2 cap(s), Oral, Daily, # 60 cap(s), Refills(s) 0, Pharmacy: [facility], 165.5, cm, 07/01/23 13:32:00 EST, Height/Length Dosing, 149.8, kg, 07/01/23 13:32:00 EST, Weight Dosing Start Date: 06/29/24 Status: Ordered Ventolin HFA 90 mcg/inh Aerosol-Adpt (1 source) Start: 07-01-2023 take 18 g by inhalation every six hours as needed Ventolin HFA 90 mcg/inh Aerosol-Adpt Refill(s) 0, 18 gm, 0 Refill(s), INHALE 1 PUFF EVERY SIX HOURS NEEDED Start Date: 07/01/23 Status: Ordered Completed/Discontinued Medications Medication Drug Class(es) Dates Sig (Normalized) Sig (Original) buprenorphine 8 mg / naloxone 2 mg sublingual film (1 source) Partial Opioid Agonist, Opioid Antagonist Start: 07-01-2023 buprenorphine-nal oxone 8 mg-2 mg sublingual film Refill(s) 0, 56 EA, 0 Refill(s), dissolve 2 FILMS under the tongue once daily Start Date: 07/01/23 Status: Ordered gabapentin 400 mg oral capsule (2 sources) Anti-epileptic Agent Start: 07-01-2023 take 1 capsule by mouth twice daily gabapentin 400 mg Cap 400 mg = 1 cap(s), Oral, BID, TAKE ONE CAPSULE BY MOUTH TWICE A DAY 90 DAYS Start Date: 07/01/23 Status: Ordered Problems Problem Classification Problem Date Documented Da te Episodic/Chronic Abdominal hernia (1 source) Umbilical hernia without obstruction or gangrene; Translations: [UMBILICAL HERNIA W/O OBST/GANGRENE] Onset: 04-13-2022 Episodic Abdominal pain (4 sources) Left lower quadrant pain; Translations: [LEFT LOWER QUADRANT PAIN] Onset: 04-09-2022 Episodic Anxiety disorders (5 sources) Anxiety; 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] 07-01-2023 Chronic Asthma (2 sources) Mild intermittent asthma 07-01-2023 Chronic Attention-deficit, conduct, and disruptive behavior disorders (2 sources) Attention deficit hyperactivity disorder 05-28-2024 Chronic Essential hypertension (2 sources) Essential hypertension 07-01-2023 Chronic Mood disorders (3 sources) Depressive disorder; Translations: [Moderate recurrent major depression] 07-01-2023 Chronic Other gastrointestinal disorders (1 source) Constipation, unspecified; Translations: [CONSTIPATION UNSPECIFIED] Onset: 04-13-2022 Episodic Other hereditary and degenerative nervous system conditions (2 sources) Restless legs 05-28-2024 Chronic Other lower respiratory disease (2 sources) Dyspnea on exertion 05-28-2024 Episodic Other nutritional; endocrine; and metabolic disorders (2 sources) Severe obesity 07-01-2023 Chronic Otitis media and related conditions (1 source) Finding of fluid behind tympanic membrane 08-16-2024 Episodic Residual codes; unclassified (1 source) Acquired absence of other specified parts of digestive tract; Translations: [ACQ ABSENCE OTH PART DIGESTV TRACT] Onset: 04-13-2022 Episodic Thyroid disorders (3 sources) Acquired hypothyroidism; Translations: [Hypothyroidism] 07-01-2023 Chronic Unclassified (1 source) Patient encounter status 08-16-2024 Results Test Name Value Interpretation Reference Range Facility CBC w/ Auto Diffon Anisocytosis Ql (Bld) PRESENT Invalid Interpretation Code [facility] Comment on above: Performed By: #### 2 [id number] #### [facility] [address] [place] [address] Basophils/100 WBC (Bld) 0.7 % Normal 0.0-2.0 [facility] Comment on above: Performed By: #### 2 [id number] #### [facility] [address] [place] [address] Basophils/Leukocytes Auto (Bld) [Pure # fraction] 0.1 E9/L Normal 0.0-0.2 [facility] Comment on above: Performed By: #### 2 [id number] #### [facility] [address] [place] [address] Eosinophils (Bld) [#/Vol] 0.3 E9/L Normal 0.0-0.5 [facility] Comment on above: Performed By: #### 2 [id number] #### [facility] [address] [place] [address] Eosinophils/100 WBC (Bld) 3.3 % Normal 0.0-8.0 [facility] Comment on above: Performed By: #### 2 [id number] #### [facility] [address] [place] [address] Erythrocyte distribution width (RBC) [Ratio] 18.8 % High 10.9-14.2 [facility] Comment on above: Performed By: #### 2 [id number] #### [facility] [address] [place] [address] Hematocrit (Bld) [Volume fraction] 34.0 % Normal 34.0-46.0 [facility] Comment on above: Performed By: #### 2 [id number] #### [facility] [address] [place] [address] Hemoglobin (Bld) [Mass/Vol] 11.0 g/dL Low 12.0-16.0 [facility] Comment on above: Performed By: #### 2 [id number] #### [facility] [address] [place] [address] Lymphocytes (Bld) [#/Vol] 2.8 E9/L Normal 1.0-4.0 [facility] Comment on above: Performed By: #### 2 [id number] #### [facility] [address] [place] [address] Lymphocytes/100 WBC (Bld) 30.3 % Normal 14.0-50.0 [facility] Comment on above: Performed By: #### 2 [id number] #### [facility] [address] [place] [address] MCH (RBC) [Entitic mass] 22.1 pg Low 27.0-34.0 [facility] Comment on above: Performed By: #### 2 [id number] #### [facility] [address] [place] [address] MCHC (RBC) [Mass/Vol] 32.2 g/dL Normal 31.4-36.0 [facility] Comment on above: Performed By: #### 2 [id number] #### [facility] [address] [place] [address] MCV (RBC) [Entitic vol] 68.7 fL Low 80.0-100.0 [facility] Comment on above: Performed By: #### 2 [id number] #### [facility] [address] [place] [address] Microcytes Ql (Bld) PRESENT Invalid Interpretation Code [facility] Comment on above: Performed By: #### 2 [id number] #### [facility] [address] [place] [address] Monocytes (Bld) [#/Vol] 0.4 E9/L Normal 0.2-1.0 [facility] Comment on above: Performed By: #### 2 [id number] #### [facility] [address] [place] [address] Neutrophils (Bld) [#/Vol] 5.7 E9/L Normal 2.0-7.5 [facility] Comment on above: Performed By: #### 2 [id number] #### [facility] [address] [place] [address] Neutrophils/100 WBC (Bld) 61.3 % Normal 36.0-75.0 [facility] Comment on above: Performed By: #### 2 [id number] #### [facility] [address] [place] [address] Ovalocytes LM Ql (Bld) PRESENT Invalid Interpretation Code [facility] Comment on above: Performed By: #### 2 [id number] #### [facility] [address] [place] [address] Platelet 472.0 E9/L Normal 150.0-500.0 [facility] Comment on above: Performed By: #### 2 [id number] #### [facility] [address] [place] [address] Platelet mean volume (Bld) [Entitic vol] 7.3 fL Normal 6.4-10.8 [facility] Comment on above: Performed By: #### 2 [id number] #### [facility] [address] [place] [address] RBC (Bld) [#/Vol] 5.0 E12/L Normal 4.3-5.9 [facility] Comment on above: Performed By: #### 2 [id number] #### [facility] [address] [place] [address] RBC size Nom (Bld) SEE MORPHOLOGY Invalid Interpretation Code [facility] Comment on above: Performed By: #### 2 [id number] #### [facility] [address] [place] [address] WBC corrected for nucl RBC Auto (Bld) [#/Vol] 9.3 E9/L Normal 4.0-11.0 [facility] Comment on above: Performed By: #### 2 [id number] #### [facility] [address] [place] [address] CHEMISTRYOrdered By: SYSTEM SYSTEM on 08-16-2024 25-hydroxyvitamin D3 [Mass/Vol] ng/mL Low 30.0 - 100.0 ng/mL [facility] Albumin [Mass/Vol] 3.9 g/dL Normal 3.3 - 5.0 gm/dL [facility] Albumin/Globulin [Mass ratio] 1.0 {ratio} Low 1.1 - 2.2 [facility] ALP [Catalytic activity/Vol] 95 [iU]/d Normal 21 - 98 Int._Unit/L [facility] ALT No additional P-5'-P [Catalytic activity/Vol] 30 [iU]/d Normal 6 - 46 Int._Unit/L [facility] Anion gap [Moles/Vol] 6 mmol/L Normal 6 - 16 mEq/L [facility] AST [Catalytic activity/Vol] 25 [iU]/d Normal 5 - 43 Int._Unit/L [facility] Bilirubin [Mass/Vol] 0.4 mg/dL Normal 0.0 - 1 .1 mg/dL [facility] Calcium [Mass/Vol] 8.9 mg/dL Normal 8.9 - 11. 1 mg/dL [facility] Chloride [Moles/Vol] 102 mmol/L Normal 101 - 1 11 mmol/L [facility] Cholesterol [Mass/Vol] 135 mg/dL Normal 120 - 200 mg/dL [facility] Cholesterol in HDL [Mass/Vol] 36 mg/dL Invalid Interpretation Code [facility] Comment on above: Result Comment: '>= 60 LOW RISK' '<= 40 HIGH RISK' Cholesterol in LDL [Mass/Vol] 90 mg/dL Normal <=129mg/dL [facility] Cholesterol in VLDL [Mass/Vol] 28 mg/dL Normal 7 - 40 mg/dL [facility] CO2 [Moles/Vol] 35 mmol/L High 21 - 31 mmol/L [facility] Creatinine [Mass/Vol] 0.8 mg/dL Normal 0.5 - 1.3 mg/dL [facility] eGFR 95 mL/min/1.73 m2 Normal >=59mL/min /1. 73 m2 [facility] Globulin (S) [Mass/Vol] 4.0 g/dL Normal 1.4 - 4.0 gm/dL [facility] Glucose [Mass/Vol] 106 mg/dL Normal 55 - 199 mg/dL [facility] Iron [Mass/Vol] 41 ug/dL Normal 35 - 153 mcg/dL [facility] Potassium [Moles/Vol] 4.5 mmol/L Normal 3.5 - 5.3 mmol/L [facility] Protein [Mass/Vol] 7.9 g/dL High 6.0 - 7.8 gm/dL [facility] Sodium [Moles/Vol] 138 mmol/L Normal 135 - 145 mmol/L [facility] Triglyceride [Mass/Vol] 142 mg/dL Normal <=149mg/dL [facility] TSH Qn 7.11 m[IU]/L High 0.34 - 5.60 mcIU/mL [facility] Urea nitrogen [Mass/Vol] 10 mg/dL Normal 5 - 21 mg/dL [facility] Urea nitrogen/Creatinine [Mass ratio] 12 mg/mg Normal 10 - 20 [facility] CMPon 08-16-2024 Albumin [Mass/Vol] 3.9 g/dL Normal 3.3-5.0 [facility] Comment on above: Performed By: #### 2 [id number] #### [facility] [address] [place] [address] Albumin/Globulin (S) [Mass conc ratio] 1.0 Low 1.1-2.2 [facility] Comment on above: Performed By: #### 2 [id number] #### [facility] [address] [place] [address] ALP [Catalytic activity/Vol] 95 Int._Unit/L Normal 21-98 [facility] Comment on above: Performed By: #### 2 [id number] #### [facility] [address] [place] [address] ALT No additional P-5'-P [Catalytic activity/Vol] 30 Int._Unit/L Normal 6-46 [facility] Comment on above: Performed By: #### 2 [id number] #### [facility] [address] [place] [address] Anion gap [Moles/Vol] 6 mmol/L Normal 6-16 [facility] Comment on above: Performed By: #### 2 [id number] #### [facility] [address] [place] [address] AST [Catalytic activity/Vol] 25 Int._Unit/L Normal 5-43 [facility] Comment on above: Performed By: #### 2 [id number] #### [facility] [address] [place] [address] Bilirubin [Mass/Vol] 0.4 mg/dL Normal 0.0-1.1 [facility] Comment on above: Performed By: #### 2 [id number] #### [facility] [address] [place] [address] Calcium [Mass/Vol] 8.9 mg/dL Normal 8.9-11.1 [facility] Comment on above: Performed By: #### 2 [id number] #### [facility] [address] [place] [address] Chloride [Moles/Vol] 102 mmol/L Normal 101-111 [facility] Comment on above: Performed By: #### 2 [id number] #### [facility] [address] [place] [address] CO2 [Moles/Vol] 35 mmol/L High 21-31 [facility] Comment on above: Performed By: #### 2 [id number] #### [facility] [address] [place] [address] Creatinine [Mass/Vol] 0.8 mg/dL Normal 0.5-1.3 [facility] Comment on above: Performed By: #### 2 [id number] #### [facility] [address] [place] [address] Globulin (S) [Mass/Vol] 4.0 g/dL Normal 1.4-4.0 [facility] Comment on above: Performed By: #### 2 [id number] #### [facility] [address] [place] [address] Glucose [Mass/Vol] 106 mg/dL Normal 55-199 [facility] Comment on above: Performed By: #### 2 [id number] #### [facility] [address] [place] [address] Potassium [Moles/Vol] 4.5 mmol/L Normal 3.5-5.3 [facility] Comment on above: Performed By: #### 2 [id number] #### [facility] [address] [place] [address] Protein [Mass/Vol] 7.9 g/dL High 6.0-7.8 [facility] Comment on above: Performed By: #### 2 [id number] #### [facility] [address] [place] [address] Sodium [Moles/Vol] 138 mmol/L Normal 135-145 [facility] Comment on above: Performed By: #### 2 [id number] #### [facility] [address] [place] [address] Urea nitrogen [Mass/Vol] 10 mg/dL Normal 5-21 [facility] Comment on above: Performed By: #### 2 [id number] #### [facility] [address] [place] [address] Urea nitrogen/Creatinine [Mass ratio] 12 No Units Normal - [facility] Comment on above: Performed By: #### 2 [id number] #### [facility] [address] [place] [address] Family Medicine Office/Clini c Noteon 08-16-2024 Family Medicine Office/Clinic Note Family Medicine Office/Clinic Note HPI Staff Ellyn is a 39 year old female presenting for medication refill Patient is here for follow up on hypertension. How often are you checking your blood pressure? no What are your average readings? _ Do you have any of the following symptoms? Chest Pain? no Palpitations? no MOREJON/SOB? no Headache? no Peripheral Edema? no Light Headedness? no Follow up for Mental Status: pt very tearful ansering quesitons , Medication adherence- Yes, takes medication as prescribed Medication refill needed: _ Suicidal thoughts-Not at this time Most recent ELEUTERIO: 22 Most recent PHQ: `19 Patient is here for follow up on Thyroid Disease. Do you have any of the following symptoms? Change in energy level? no Weight change? no Heat/cold intolerance? no Hair/skin/nail changes? no Change in bowels? no Last TSH: History of Present Illness pt presents today for refills Review of Systems PHQ Score Initial Depression Screen Score: 4 SCORE Physical Exam Vitals & Measurements HR: 88(Peripheral) RR: 18 BP: 128/74 SpO2: 98% HT: 65 in HT: 165.5 cm WT: 147.5 kg WT: 325.181 lb BMI: 53.85 General: alert, no acute distress ENMT: oral mucosa moist, no pharyngeal erythema or exudate Cardiovascular: regular rate and rhythm, normal peripheral perfusion Respiratory: Lungs CTA, respirations non labored Extremities: no deformity, no trauma Neurological: oriented x 4, LOC appropriate for age, CN II-XII intact, motor strength equal & normal bilaterally, speech normal Assessment/Plan 1. Wellness examination (Z00.00: Encounter for general adult medical examination without abnormal findings) pt presents for annual wellness. needs refill and labs Ordered: aripiprazole, 10 mg = 1 tab(s), Oral, Daily, # 90 tab(s), Refills(s) 0, Pharmacy: [facility], 165.5, cm, 08/16/24 13:58:00 EDT, Height/Length Dosing, 147.5, kg, 08/16/24 13:58:00 EDT, Weight Dosing cetirizine, 10 mg = 1 cap(s), Oral, Daily, PRN for allergy symptoms, # 90 cap(s), Refills(s) 0, Pharmacy: [facility], 165.5, cm, 08/16/24 13:58:00 EDT, Height/Length Dosing, 147.5, kg, 08/16/24 13:58:00 EDT, Weight Dosing fluticasone nasal, 2 spray(s), Nasal, Daily, 16 gram, Refill(s) 0, each nostril, [facility], 165.5, cm, 08/16/24 13:58:00 EDT, Height/Length Dosing, 147.5, kg, 08/16/24 13:58:00 EDT, Weight Dosing CBC w/ Auto Diff Comprehensive Metabolic Panel Est Preventative 40 to 64 years [address] Iron Level Lab Specimen Collect 29074 Lipid Panel Thyroid Stimulating Hormone Vitamin D 25 Hydroxy 2. Essential hypertension (I10: Essential (primary) hypertension) needs refills on labs Ordered: aripiprazole, 10 mg = 1 tab(s), Oral, Daily, # 90 tab(s), Refills(s) 0, Pharmacy: [facility], 165.5, cm, 08/16/24 13:58:00 EDT, Height/Length Dosing, 147.5, kg, 08/16/24 13:58:00 EDT, Weight Dosing cetirizine, 10 mg = 1 cap(s), Oral, Daily, PRN for allergy symptoms, # 90 cap(s), Refills(s) 0, Pharmacy: [facility], 165.5, cm, 08/16/24 13:58:00 EDT, Height/Length Dosing, 147.5, kg, 08/16/24 13:58:00 EDT, Weight Dosing fluticasone nasal, 2 spray(s), Nasal, Daily, 16 gram, Refill(s) 0, each nostril, [facility], 165.5, cm, 08/16/24 13:58:00 EDT, Height/Length Dosing, 147.5, kg, 08/16/24 13:58:00 EDT, Weight Dosing CBC w/ Auto Diff Comprehensive Metabolic Panel Est Preventative 40 to 64 years [address] Iron Level Lipid Panel Thyroid Stimulating Hormone Vitamin D 25 Hydroxy 3. Hypothyroid (E03.9: Hypothyroidism, unspecified) TSH in office today Ordered: aripiprazole, 10 mg = 1 tab(s), Oral, Daily, # 90 tab(s), Refills(s) 0, Pharmacy: [facility], 165.5, cm, 08/16/24 13:58:00 EDT, Height/Length Dosing, 147.5, kg, 08/16/24 13:58:00 EDT, Weight Dosing cetirizine, 10 mg = 1 cap(s), Oral, Daily, PRN for allergy symptoms, # 90 cap(s), Refills(s) 0, Pharmacy: [facility], 165.5, cm, 08/16/24 13:58:00 EDT, Height/Length Dosing, 147.5, kg, 08/16/24 13:58:00 EDT, Weight Dosing fluticasone nasal, 2 spray(s), Nasal, Daily, 16 gram, Refill(s) 0, each nostril, [facility], 165.5, cm, 08/16/24 13:58:00 EDT, Height/Length Dosing, 147.5, kg, 08/16/24 13:58:00 EDT, Weight Dosing CBC w/ Auto Diff Comprehensive Metabolic Panel Est Preventative 40 to 64 years [address] Iron Level Lipid Panel Thyroid Stimulating Hormone Vitamin D 25 Hydroxy 4. ELEUTERIO (generalized anxiety disorder) (F41.1: Generalized anxiety disorder) added abilify to current meds Ordered: cetirizine, 10 mg = 1 cap(s), Oral, Daily, PRN for allergy symptoms, # 90 cap(s), Refills(s) 0, Pharmacy: [facility], 165.5, cm, 08/16/24 13:58:00 EDT, Height/Length Dosing, 147.5, kg, 08/16/24 13:58:00 EDT, Weight Dosing fluticasone nasal, 2 spray(s), Nasal, Daily, 16 gram, Refill(s) 0, each nostril, [facility], 165.5, cm, 08/16/24 13:58:00 EDT, Hei (more content not included)... Normal [facility] Comment on above: Result Comment: Elec tronically Signed By: Madelin GUNDERSON, Barbara Angelo\.br\Date and Time Signed: 08/16/24 15:00 EDT HEMATOLOGYOrdered By: SYSTEM SYSTEM on 08-16-2024 Anisocytosis Ql (Bld) PRESENT *NA* (08/16/24 2:18 PM) Invalid Interpretation Code [facility] Basophils/100 WBC (Bld) 0.7 % Normal 0.0 - 2.0 % [facility] Basophils/Leukocytes Auto (Bld) [Pure # fraction] 0.1 E9/L Normal 0.0 - 0.2 E9/L [facility] Eosinophils (Bld) [#/Vol] 0.3 E9/L Normal 0.0 - 0.5 E9/L [facility] Eosinophils/100 WBC (Bld) 3.3 % Normal 0.0 - 8.0 % [facility] Erythrocyte distribution width (RBC) [Ratio] 18.8 % High 10.9 - 14.2 % [facility] Hematocrit (Bld) [Volume fraction] 34.0 % Normal 34.0 - 46.0 % [facility] Hemoglobin (Bld) [Mass/Vol] 11.0 g/dL Low 12.0 - 16.0 gm/dL [facility] Lymphocytes (Bld) [#/Vol] 2.8 E9/L Normal 1.0 - 4.0 E9/L [facility] Lymphocytes/100 WBC (Bld) 30.3 % Normal 14.0 - 50.0 % [facility] MCH (RBC) [Entitic mass] 22.1 pg Low 27.0 - 34.0 pg [facility] MCHC (RBC) [Mass/Vol] 32.2 g/dL Normal 31.4 - 36.0 gm/dL [facility] MCV (RBC) [Entitic vol] 68.7 fL Low 80.0 - 100.0 fL [facility] Microcytes Ql (Bld) PRESENT *NA* (08/16/24 2:18 PM) Invalid Interpretation Code [facility] Monocytes (Bld) [#/Vol] 0.4 E9/L Normal 0.2 - 1.0 E9/L [facility] Monocytes/100 WBC (Bld) 4.4 % Normal 4.0 - 14.0 % [facility] Neutrophils (Bld) [#/Vol] 5.7 E9/L Normal 2.0 - 7.5 E9/L [facility] Neutrophils/100 WBC (Bld) 61.3 % Normal 36.0 - 75.0 % [facility] Ovalocytes LM Ql (Bld) PRESENT *NA* (08/16/24 2:18 PM) Invalid Interpretation Code [facility] Platelet 472.0 E9/L Normal 150.0 - 500.0 E9/L [facility] Platelet mean volume (Bld) [Entitic vol] 7.3 fL Normal 6.4 - 10.8 fL [facility] RBC (Bld) [#/Vol] 5.0 E12/L Normal 4.3 - 5.9 E12/L [facility] RBC size Nom (Bld) SEE MORPHOLOGY *NA* (08/16/24 2:18 PM) Invalid Interpretation Code [facility] WBC corrected for nucl RBC Auto (Bld) [#/Vol] 9.3 E9/L Normal 4.0 - 11.0 E9/L Remisol Heme Ironon 08-16-2024 Iron [Mass/Vol] 41 microgram/dL Normal 35-153 [facility] Comment on above: Performed By: #### 2 [id number] #### [facility] [address] [place] [address] Lipid Panelon 08-16-2024 Cholesterol [Mass/Vol] 135 mg/dL Normal 120-200 [facility] Comment on above: Performed By: #### 2 [id number] #### [facility] [address] [place] [address] Cholesterol in HDL [Mass/Vol] 36 mg/dL Invalid Interpretation Code [facility] Comment on above: Result Comment: '>= 60 LOW RISK' '<= 40 HIGH RISK' Performed By: #### 2 [id number] #### [facility] [address] [place] [address] Cholesterol in LDL [Mass/Vol] 90 mg/dL Normal <=129 [facility] Comment on above: Performed By: #### 2 [id number] #### [facility] [address] [place] [address] Cholesterol in VLDL [Mass/Vol] 28 mg/dL Normal 7-40 [facility] Comment on above: Performed By: #### 2 [id number] #### [facility] [address] [place] [address] Triglyceride [Mass/Vol] 142 mg/dL Normal <=149 [facility] Comment on above: Performed By: #### 2 [id number] #### [facility] [address] [place] [address] TSHon 08-16-2024 TSH Qn 7.11 m[IU]/L High 0.34-5.60 [facility] Comment on above: Performed By: #### 2 [id number] #### [facility] [address] [place] [address] Vitamin D 25 Hydroxyon 08-16 25-hydroxyvitamin D3 [Mass/Vol] ng/mL Low 30.0-100.0 [facility] Comment on above: Performed By: #### 5 [id number] #### [facility] [address] [place] [address] eGFRon 08-16-2024 eGFR 95 mL/min/1.73 m2 Normal >=59 [facility] Comment on above: Performed By: #### 1 [id number] #### [facility] [address] [place] [address] C Bloodon 01-30-2024 C Blood No growth at 5 Days Normal [facility] Comment on above: Performed By: #### 6 [id number] #### [facility] (DEFAULT) [address] [place] [address] Performed By: #### 6 [id number] ####[facility] (DEFAULT)[address] [place] [address] Coding Summaryon 01-30-2024 Coding Summary HTMLBase 64 WtlfzgpeTRu1rDn+PGhl YWQ+OH1ROWMzI69jbOAb bH9fR7GVSEjKHhpoEXDB FLaOVfDqbhMfRQ0lgUPi ZXJu IC8+CM5nODJnAsmbbNXk c4K7zRV9M68bck0rLWrx sON3YZOgHnXdeahcb4cs uTp2DIzjXqwrByRv GDJwyA80DOK2sC13Fj68 aWGwgVZss1hxkMf7HiNd ARJaTIA9bGleMJakd8Ii ZOSdV22lnCSyr6R1 IGNvbGxhcHNlOyBlbXB0 rA8iDWzvhzlcz7xmiies Ruk7kx81vTXtj9O2mUU2 Q1YhnvV4RQIzsQCg CprmnKNNoC8ikuyqm4bp kjkiIwNeYEZvWSc4QRz9 EHNquOzlEbZkVR15SRQ9 MWSigpPoQ5UgWTOu xFzbKrV2n8C1Po7HA8WW UoscH9RPIUVNNCpjyEV+ FH27nj28H1PzIdboLkz8 TQYxQMB3yIC2aM0z BFRyOPtdj3D3rSJ3P9Ih fsLyjw5gp2hhLAZsOMtw C19bvFInv6O2ESVipCY2 JJDyuWofTeRabF18 Oyc+YHHemTdvm2BvHklj y4nlf1sfyCe2XgtaNXGv rcKzmUkjAXV7k3WlAh1q YMWtwAZ2fND7nO9y BdLwLkI7QNkbO654GbRz yULfHxnjB37iL7WtdAP+ XXTsYbh8DRQeyRcbYD7j R7XnLYVqazjupUYt iRupRS0vWAFxkvuiZCIl oV5iNWMhU5p6JmHnLuO7 GGygN3NgSTVnjerqPb55 oH5rGzXyBmO3SGyg V9XewjY8RWGgyOWlRKkv GJP6I30gm0D4CTMyZEFm XRE5vVK7fY5wcRdrmocm bGVmdDsgdmVydGlj SPkuZDtdS749DGTlqNoy PkNvZGluZyBEYXRlOiAg MDkvMjMvMjAyNDwvdGQ+ APPjBXK1jKqlZCUn sCXsQBthFv4veNgceZzm VZ4lNYZzrhtpHOHfkK8i XITtsKHvuHilXC2qTVMj scoqq457LbZvXIN2 FROdhARjK5YzbV6pKeCf SIKoWSAkS2AxmQMlPIit M352RYzrUqL3CVQcenRj U8EfLMNnrOdoNjG3 u9S2Vq8Hi1WhosxkN6Tm vOJwJkIxQbiaHVl8V7Cs PjwvdHI+NB61PWRoZK44 KAd6TAJ1uMwdJJzb UUExS9PwmQ7bCpYmXCZj ZGRkOyc+PHRhYmxlIHdp ZHRoPScxMDAlJyBzdHls IR3fGw4jVBPsEZSj dXvtdTSkGmMni1urPQIh IIczUN4jwOxaL7WgtBM6 FNFde4c5Lt43Y27zH1Ht dXA+DBGkfYK1wLO4 dS7gQvXqIkK6BKufA642 PzYleCQcCajbo2ufv7po aPc6WwZ2QFThujWtrHeo KXL1g1DlMk40C54o IHdpZHRoPSIxNSUiIHZh tTzqlc3jxO5dYz4+PGNv aBB1tSQ7iK3nQuOrRoH8 KGawX686XxTidIVq Csoaf8rhu7gneOl7LkOe OMLfvsFgkGkeCJH8b7Xr Wk01I2QfrWvxg9FkAyc0 bb73iAAoe9O1uBU6 B3NnYCPsyzckiAFzjUel HD4uPIIzkaywFQUafU0v XNUdP9i8AtUpQeT4GRum S6TyqcY8EUDdqHJf JZSudGPWoP6rlvxjl5yp gineYsRlOHJnKTd0LNq3 VSDraReqBlKoNNU7QtZ4 KJT6hUTwiX4yeXdc dmiabA9zYjp+RTW5gRGc jCPYSJ6jIxbrwAM+PHRk QFY1bPmsYIduTRPxbU6e LPHlO8x7LtIsVwT3 GGfuV7MreoB7LZAarIKv MQKimCBLiZ6cteojy7is flrbHoZkXBYdWSp5RYd2 LWFsaWduOiBsZWZ0 TzJ0KAR7cNUzqW6enJro flegdP6bAhz+QmlydGgg XTK8DAz5O1RwOhg2JQWr uNqtCB5hiQNhEKei Wz7osIaymStrYV4aWVJa qwkdi635XpUbs3fuTZDn jBKtZZwoOZM2C62ag9Q8 TWYbWAKzNHF7tQI8 qW9iaLrsuwyitDCtnPxd mrOuzJapMRrqMXwrZ187 TYXohGjqZzRlOBk6Z0Bf Hjv9NUIcuWmeMU8z dETnNYsyTp9igAubtIpj NF6hORGscfpxh492BrYj w2ulCCFycMJwSUqyHFK1 B06yd0S5QSUiKRCq RVC2zES0gK9krMerhkxd bGVmdDsgdmVydGljYWwt PKdlT485FQRpiQlzPeLl lAe6T4PiAov8ZILm cTljQH5uqNEuJEzyYe2t oNfgfNjbNH7qYEYklxkv u284HrJml0xhFBYmtSUg LIofURP7L96or9W3 KEJyKIIuHRN0lZN8lD1z bGlnbjogbGVmdDsgdmVy uOowWUoqNYncO876NIBf cDsnPlBhdGllbnQg LMzsJYg8L1SnVmkpwDI+ KP81JKZzMP79lOFczTQk r4qwlVw1JpEsGXCePZG6 sLgqQGdwh1GhTZXm T55lzGYll6J9GSTtcWvl kHFoUhKrqYQ4jY8sAXra egxan3imokggQrmbz4jj ll87jM11A39yVFwj ZHRoPSIzMCUiIHZhbGln ej4avD3oTp8+PGNvbCB3 lYB3qV5nHFDzWhC5HPli Y490XbOiwKEyVbga q4fpq5jdkFa5UhV0ROMy wnAmzXmpNNP3t0YmZp95 U33aRIacUZIxDHRtRZCo JPVqeQsucf6jcV8a Ii8+HBSwrJH4lPL3bS7h UlWiNeC7NDbwK243MmMv qJIbRdhgO75hH7ZyaJU+ CTFsFvj2DXQxaXmd WO5poPFnHKtzNf1vDOV3 FyNkNkTsLLdzM0SeUTRo ewpidnmhgAR7UBLoXCPo lK39Ku4uyKdoEGZr uEUFuM8qhqsaa1cepdaa FtPmJMRkUZy0NAj2HZOv jCcoOdVuAJA3VnV3JDF9 hYJmhK9qvQaiksds aV3hL7WhZXXntbdzFs77 tA3qIgSqKeV3ADplPkg+ Q9zVC33OSVRRYOLXVADj TFlOTjwvdGQ+PHRk ERA9xIapGFusLTJbeN4e CQEsT8v1FvFlSqS3JZbv M8QyXFMiklonMk86iO0j GkIzWqO7CVvgA6Rb aqU5MVRjzTTbDLggMOC4 I75le5L6SEFwOKOgQWC4 lZQ2bX5xiXcqaylawYIx dDsgdmVydGljYWwt OIwcY153SKDjlLyzQwZg CwN3MeS6KSM0I4YpNww5 VIFewWgnBU4fpMGkWFrp Ca8gbJhikIjpTP7l UBBjgbsoNROmmZ7xRWMv dDXxbBffQR9xOFTgwikc e895PiUkZKZ0AGQhgDNb W8XwwE7zYmFwXWTz FNDnD5WjqDHoJAhkS758 NNzzDfH4XXIbsdOxD3Ej CDZigYpdIqH2g9V6Ls0b OSBZZWFyczwvdGQ+ LIMjDVR8kYwyYBkcBAMy gG3vCWQlW1i9EoDlOqI6 ERzuD1VoAESjackwVy96 sJ0oKoAxGwS6LIjv R2MzfmH2KBZqqPMdPQan EQI6V85dl8E1DQXgNIZf JQM8xCQ3cD5kdKgkfnmf bGVmdDsgdmVydGlj VAonTOnfE573MNDmjFho PkZFTUFMRTwvdGQ+PHRk BEA8tHmkWNmqPTFxqB4x TJFoN5x8ZvSdLgA7 ZLxdR9WgOXKswbhkRs36 rQ1dMbXcDnW9AKslN3Lo zxX4REKyaWCtDIzyZRD1 I98yj4N3IGPdEUDw RNO3fZA2aA6aaFoqdnwq bGVmdDsgdmVydGljYWwt XXtrD826VADfvKkdKsSp LFToYD9ygOwqdTD+ TT46mw11E2CcSrevLjt8 UZPzOOJ2iWF3vG3zGZIt ZEfpt9M4zCS2C3OlvrOo fo0ml1hsXMJeWCdh B90trRLqa0Y9QQDllRI0 YZVbkSsgJcQwbS24Rdf+ YYHopNfgr2MrDhaml2dz j3pcbVt4XoUvMJZp ypByuSasXHO8h3WwPz32 Y29hAHmlMQJnBQRyRZBy ZFUuqOtvdo5feV2uIm9+ TFNwiIV5cIT7iV7a SjNcEzH0EAxvZ156BmKn wFAnKplbp7jff6devQa8 IjIwJSIgdmFsaWduPSJ0 a0IaGb96V3AxqCeo a1HiRad3mm58eGRok9I0 zDK6C7AsADBvejoemNMb jIzkDE8rMIMfcawyWEPf wV7qVMWjO3c4TxMl YrO4BFasW7GzfdL6NSZz ySUdFXPxwFNZkY5wixhq r5hokstbHpIlIDJzCDp4 XJh3CGObhLmcFoXf FSQ6ZnP8WPX6gUWifV6r bRmvhtgmqN5dZun+UGh5 y8msgGAfGZ3fvNK9QR38 SQ72wJQww5X0jJD1 Z8PiGOSdqbjyzwzeiYJ8 XKToCNSbwN55Re0myVoj Yj1rATXoDFH9GKThpLOc N7UzvH4kDaGiPIMj RXVzT6ZevHYuTRtiL493 UZqeWxI5GIVgabBjL3Sc OWKieMbbStT5r1R5Ts6B YI65EC47AL44uGTt i5Y1hBJ8A9KcDAEaozjk cfkniVP6LYXkCPZkuS63 Gr2waYdmLh3hUYAgHHQ0 QGJtnASgP7ZecE0m EbRfGLTgVZByT5RtdQHg EQsbV057IXidMcE7BWIx noRgR7VcKIDrkNnxMhV0 u0X0Mr4MEy39VL34 VX38yGJjo6H1zHC2I7Kk MJHxdwdiofguhIB4BNUf PNFsbP17Lc0ayCatAw2a LYQlQJZ8AAQidABj Q0YdxW1dKuFpQZVdZPEv J2XnhMRkGGskC986IImf GxM1UFFmsgCyP4WqEEEm jGerPtJ2l3X8Pg7Y CYnacox4F9NbYankoPB+ OY04FAGvAS96iDVzqAKm o6jdeWv5OmEeRIQsZYC2 mOjsIZezr7KhOGFh Y29 (more content not included)... [facility] Coding Summary HTMLBase 64 YbzlccxzYUy1mFf+PGhl YWQ+FQ2CIJNdF82dvUPx lI6pQ3EHLQwJNrncCFQL DSiVHaEvipDxXR4tpOXl ZXJu IC8+OP6zAVTzMnftbMHs k1H7yVJ7R14ddj6fANpz zRR8GNSmOoMocnddg4is jUn5HBibKexyKsJi GMGywB34XTM6iC82Xh86 lIXddKBlx0jcwPt4AnEa LEFzHNT3dJbtLCndm5Ps QHOzP01kbJFue1Y8 IGNvbGxhcHNlOyBlbXB0 xP0rZAzngckiz2wwquum Aiv3gl32lQKlb2B7bLY8 Y3YppmG2LWPoeKOh EmzaiYFHgR9knwech1bl fsjiXzIcAPIjLEi6KBr3 FGSyoNrnKaFrUW44GQT1 ABXhjeNpK7ReRJMs pIakVkB7x7D3Jc5TQ3BY PwtjQ4KBGOIEJOdbbUM+ SH54yt70B9NcJbaxScv3 DJFeWWG6aSJ4kF8p XRFoJSnjl9E3gYC0Z3Wv rgUkiu5lh9iiAPDpVMsv G90ajAMli7X1DYCmcVU3 QWTutFurKfRrsJ70 Oyc+BYQndOgye2PlQssb h9uze4ljdCs4ZrzwVQDu llBinSjqAFA9g3BpGc6v DIQxhKD2pFR4cN4d PzNcDtO6GLirH477ObKd vSLkSlwnN26sN3HefYG+ MTIhMli0VDFwtGjqMF0h Q5GdTJRaaojiePZh eZrdBI6tBPHudwfsITOj cT5hLCIyP6s0NeIqLcY2 FSptR8OlZGPislkpHw89 lG5tMwQbZzX7UCeb R9NvzjM0EQSicICqCToe CYR1W09tr7Q0FJRcRFDd CDF1oFX6tC5vpJmpuizu bGVmdDsgdmVydGlj HXbnOQbiE988SAWxqHso PkNvZGluZyBEYXRlOiAg MDkvMjMvMjAyNDwvdGQ+ BBUyGJI7vBuaDMOy vZPwKIpdPz3ikSrkaMtj FQ7vYTSszmbqKNHyeP0i ZNTyjKAjuNvyCU9hEFFg zutfs925RhIuWYP8 QKXtzXWfH2MpeH0kCuIy EAOzHBOfQ1ZnaQXwPEcj V263IQmqZaC9EOFizzEr M4EcDAXupMkgNiI0 e5T3Wr1Ox3QobyzgA5Xf xTYvZgVbRgboSQs4J1Cg PjwvdHI+TD10BZIvQB48 SBq8LAJ6dUvmNDbu GJLqX4NzqH5bEfAxMMEg ZGRkOyc+PHRhYmxlIHdp ZHRoPScxMDAlJyBzdHls RM3bWn0qAGRkNXJn vKhtzICoMrTfq9wjNAIq WSawSH0bcHnyP1HfvER8 TFVkq2d5Fv23E78lF1Cn dXA+NLVngAT0tWA6 cW2cHxBgLvE0IYujI037 CkFnhQDiEluue1fzs2ua lDa9CgZ0ABOkblFcyXvd AKR6m2IwUp95L69s IHdpZHRoPSIxNSUiIHZh fMoioz4ekV5hNk7+PGNv eNY7cWR5nL0fYfOcZtE3 HAygM516SxPhfCIk Mqxnl8bnp6dxqZq7TfEk EOIbogPumJgxBWW2l6Av Lu16L3FoiPlyz0KjEpd1 tc12qVTbn8C9cEE0 K7LyPVXvxholtUKyzYgb FH8iQFTfqzxaRTExlQ5r ZDZaV8p2XqMjHiN8MYqv K5ZmxvW8ORZvuEUf IBWinGAWkP6umazus1ue yqpdAkReCBWqRNo8SVu3 GSQwzVmuKuJfNMX8KmD2 TBK1kEBclZ5pmGbf rclmnY1gZfc+UZV2xHRc pQEDZK5iNppxwYJ+PHRk FWO7wAlyXVjySQVvhS2p GLTxU0g4JlHxAxT3 ANueC7WrnuU8UFMtfJNh BHMiwPFRtP1wzhlww2bw yxpnAcFrZDVaRUr5WDv6 LWFsaWduOiBsZWZ0 WaR5TYB1gCPcgJ1ijBhi jovxxH7xGcr+QmlydGgg BXK1GDv6B1IrArw2MOWt eXheIB9lgDZhVOwa Yk3qtTtdbEtdTX2oHIRl vexwf845HkOqb9poBORq nSYoYZjeNEL7K27ew1W6 AMPpSYAfDMV4nZS6 fY8vrZykmqjeeJFuiMlr ubPyeSvyHByvWMyiG470 ZSEzdIpvEzHnNYu8Z9Rv Bab5VCEnaRltHK0u xYYdUBwlJf9waPknpQmu YV8rWJGcuehpp700AxSu z0ogJJPhvXKmCKufFUL8 W10ae4M4IZLuCMKd UKJ9vGA1qN0jeIpslnxj bGVmdDsgdmVydGljYWwt PUfzM878FITqeXxzFvIj xZj3T0QiThw3MSJk hFryOD8yuUDyFOtnRu6s oVogqQqjDP1cTALnclfc k161VbPcd2rpMKNyyXTx HMdlADN9W64yj5I4 ANVoRBErCSX8mQQ8fO4y bGlnbjogbGVmdDsgdmVy qMwoPDqyYLdrZ243XDUt cDsnPlBhdGllbnQg CYovZWr1T9HuZksqmTH+ IO51HPBoRC53uUWhvAYz c6ogjZg0CyWmBGJhJHS8 vJnfFPlzt2UjHBZo O75rhGMve8Q7UNXkmJzt hJUoEgEcpYE3oP3cZTzz stjux2sfavxgHsdja8gf yj57zW84Z49kWUsl ZHRoPSIzMCUiIHZhbGln vk2dmO7tUw9+PGNvbCB3 mIM7eQ9jXOQlSiR2SPdd W092SuMumDYlSoyi g3wjm7jovNi6QaV0BLPx rmOoyZwlFYK0r5YuPq06 H67lLBouNRYqPAXdGYJk HYIrrWvllb2sbO5h Ii8+TXZxoDG7tQM9hD4f UeAfHqM5SDeeL441JnHr rMVwBhokD99mD9MecTP+ VANwZsc4PZQrjQof IN4naFLuKKkoTs2iVTW0 WsFyCmIeKXmmA4QvZNOw navvctgxxRS2SCHzPBRc yI18Tf3biSxjAVMn eGCIjP2qhxvps9rnqbvm HmTgLDRqJSk8AMe7IQWv yCmoMiCrQQK2XeB1IUX8 eEQoyB0zuMwlnxrz sX8gW8VkTIQcpncaEr62 wA7jUsHaJnZ7HNzcFcv+ N9uUU57NGNJEVSFFHYDz TFlOTjwvdGQ+PHRk DGZ2qXcqPJhtOSVflG8f WSKvL6l8FkJeFbP2DMrb E3HwLTAydawoBe44fR8y JvBoMyN3VCyvX4Qe gjA3FATiiVRuLNkiOBO5 T07wd1K8OFGhBAPfDLZ3 qDT0lS0lzUulodituACj dDsgdmVydGljYWwt CQofK427UDTucYfdGaNe YfC0ZtJ0XSO2C6JzJay5 RBShuZfuKV4xqEGbRRil Yy4ezOwofYwkBV0j OMMhpsbrECBnbK9oZCCh yDFumQwtJB3eBABgpcxm q476UlPrKHO1QDQonZKr W8YfxV6mZvTyNKMk DZNiE7ZcbFClLDvvC679 OVcqZcS3ANOwozPhX6Ip WVHjtNxzFrN0c1C7Ad2l OSBZZWFyczwvdGQ+ MWBdFHR0lKqfXUcbHDKq vK3oQOGnR8d7KiOfRhL0 KRvdT9WsDTFdiaafOu31 aV2vEiTtEfI9NKjv I2GaazF8EKKlhUElKNcl GTL9S46cn2K6QVLoDJMz ZCO7pVX5yV2pnCokkfwl bGVmdDsgdmVydGlj WGqmCIolN206QHFkqAyf PkZFTUFMRTwvdGQ+PHRk DST6yLwxWFkxUWIsbM8n PKLbX7g2CvSxPvH5 TPjsT4AqKQYnmstzYs24 sQ5iXyYyNpG6EUwqD2Qs ymW1XOTkvGYoIFdtFZQ9 I62gg6X0DHMuUSHo CBF5nRM8lS8hiVbcvlur bGVmdDsgdmVydGljYWwt UEhxA281QDFabMauNf2b m3RsfbA9nB9dRT37 AQ48L4HsXofppKXccDY+ PHRhYmxlIHdpZHRoPScx PIWuTaFjyFcyRB3wGm9e ZGVyLWNvbGxhcHNl PrTnh9vqPEAgLUujLH7d oAimH1HduNZ5QQAjz6c7 Oh57T08tD6DohUA+PGNv aXS5lKR3oQ9wNuRq NiR3XMkqY170ZvUdqTGw Igndb3tup2clgPr5PuLl PBQlggMcpNktQUW7a2Yg Ap49C26sYIukSCEn PMEaQYVaSZYfwBzkdp7c fT4tPv2+WOPkjGS0tMM6 aT1mObJkJfQ5CVwfV459 VaXtnSHpYwobV38i A4LjcYV+OJSwYuk3GURe pPzdCT1vhDDvZTphTb1u WOR2YgSpFqReFSdnB3Eq ZGRpbmctcmlnaHQ6 BWVzSASsgJ82Oq5zlDju Yb3wRPVsLSA7DWSfdMTo D5GosU1uWyFxZENxTKEf J3FrbVMvHUieQ260 HJswUeW8FHYmzpOpL2Bs PSNzxWfiNsO7u8S1Hg9X tUioaFGmWT4rDwHrPWw9 D2LeRoi4QMBloEjw RQ2zoXFtXIvfNr0mkQns aWorOB8tBPYfuhdbl527 GxYty7gxXEXgmEPjBPtf BVO1A12ch0J3NDOp KELdRQU7eFR6vM9rdQul bjogbGVmdDsgdmVydGlj GMlxIWyoI456SJLglCai TnDEVdo6O0KmCor1 LRAohOgnJO6nfFKmNZjl Ry7htUefgWmxYN6lTURy ropkn036EyRlr4vjSEPx kRJsALzyUNK6F51k x2Y5UPKoNBTaOVG5yZZ9 tR9gmHicbtddnBJtpYlr ofXnxKpxCBdzPUltG143 DODhsGfcMg8URji5 Q4ZoLdv9WMYniAqfKJ1f qNUoWTdxWw5cyNfyyWfx YG9fUTCkkgwgl362SdWf p3bxBPUvkNExIJtg BPQ6W28rd7R2RKKkLWRl CRR0uXV5dY2tdKnhzyle bGVmdDsgdmVydGljYWwt OZkgK395FCGrvEah PlBheWVyOjwvdGQ+PC90 mi38F9KhDptxRmt2OJFo JYE8bCY0wP2xWCSsPKdn w4W2lFE7W4SdgoLe ci1 (more content not included)... [facility] Consent Formson 01-27-2024 Consent Forms [id number] [id number] [facility] .Auto Diff 1on 01-26-2024 [place] % 5 % Normal -12 [facility] Comment on above: Performed By: #### 7 [id number] #### [facility] (DEFAULT) [address] [place] [address] Baso Abs# [id number] x10 Normal 0.0-0.2 [facility] Comment on above: Performed By: #### 7 [id number] #### [facility] (DEFAULT) [address] [place] [address] 6[address] Basophils/100 WBC (Bld) 0.5 % Normal 0.2-2.0 [facility] Comment on above: Performed By: #### 7 [id number] #### [facility] (DEFAULT) [address] [place] [address] Eos Abs# [id number] x10 Normal 0.0-0.4 [facility] Comment on above: Performed By: #### 7 223682, 6840191, 56493721, [id number], 1544970 #### [facility] (DEFAULT) [address] [place] [address] 88710 Eosinophils/100 WBC (Bld) 3.2 % Normal 0.9-4.0 [facility] Comment on above: Performed By: #### 7 754525, 4800906, 25315967, [id number], 3698801 #### [facility] (DEFAULT) [address] [place] [address] 70935 Lymph Abs# 3.7 x10 High 1.3-2.9 [facility] Comment on above: Performed By: #### 7 639773, 9355824, 46667985, [id number], 2793521 #### [facility] (DEFAULT) [address] [place] [address] 05539 Lymphocytes/100 WBC (Bld) 39 % Normal 14-48 [facility] Comment on above: Performed By: #### 7 070963, 7342662, 71390219, [id number], 3648422 #### [facility] (DEFAULT) [address] [place] [address] [place] Abs# 0.5 x10 Normal 0.0-0.8 [facility] Comment on above: Performed By: #### 7 037890, 7831200, 16357288, [id number], 4673087 #### [facility] (DEFAULT) [address] [place] [address] 60474 Neut Abs# 4.9 x10 Normal 1.5-9.2 [facility] Comment on above: Performed By: #### 7 720870, 5771995, 61929413, 8821955605, 2932145 #### [facility] (DEFAULT) [address] [place] [address] 00795 Neutrophils/100 WBC (Bld) 52 % Normal 44-88 [facility] Comment on above: Performed By: #### 7 217934, 3151842, 62937627, [id number], 7225358 #### [facility] (DEFAULT) [address] [place] [address] [facility] Standardon 01-26-2024 eGFR Non AA >60 Invalid Interpretation Code [facility] Comment on above: Performed By: #### 7 297460, 2844283, 67103179, [id number], 9911607 ####[facility] (DEFAULT)[address] [place] [address] 07644 eGFR AA >60 Invalid Interpretation Code [facility] Comment on above: Performed By: #### 7 033987, 4263362, 45812960, 5420610201, 3477389 ####[facility] (DEFAULT)[address] [place] [address] 19578 Anion gap [Moles/Vol] 11.7 mmol/L Normal 5.0-19.0 [facility] Comment on above: Performed By: #### 7 758355, 7511283, 06286340, 1727285803, 2308349 ####[facility] (DEFAULT)[address] [place] [address] 98912 Calcium [Mass/Vol] 8.5 mg/dL Low 8.9-10.3 [facility] Comment on above: Performed By: #### 7 942180, 7276264, 23270046, [id number], 2511448 ####[facility] (DEFAULT)[address] [place] [address] 23333 Chloride [Moles/Vol] 99 mmol/L Low 101-111 [facility] Comment on above: Performed By: #### 7 750430, 6874316, 84824093, 3314838132, 2801147 ####[facility] (DEFAULT)[address] [place] [address] 60838 CO2 [Moles/Vol] 30 mmol/L Normal 21-32 [facility] Comment on above: Performed By: #### 7 064192, 9294105, 18955901, 7650010882, 6467071 ####[facility] (DEFAULT)[address] [place] [address] 25363 Creatinine [Mass/Vol] 0.88 mg/dL Normal 0.60-1.30 [facility] Comment on above: Performed By: #### 7 796437, 1643234, 29644870, 9271083472, 1992624 ####[facility] (DEFAULT)[address] [place] [address] 24732 Glucose [Mass/Vol] 88.0 mg/dL Normal 74.0-118.0 [facility] Comment on above: Performed By: #### 7 446818, 1956905, 00563180, 0488437686, 7432298 ####[facility] (DEFAULT)[address] [place] [address] 19453 Osmolality 272 mOsm/L Invalid Interpretation Code [facility] Comment on above: Performed By: #### 7 729534, 0692926, 18742346, [id number], 3011268 ####[facility] (DEFAULT)[address] [place] [address] 60589 Potassium [Moles/Vol] 3.7 mmol/L Normal 3.6-5.1 [facility] Comment on above: Performed By: #### 7 066817, 4149513, 55561901, 5313747343, 1189787 ####[facility] (DEFAULT)[address] [place] [address] 49466 Sodium [Moles/Vol] 137.0 mmol/L Normal 136.0-144.0 [facility] Comment on above: Performed By: #### 7 232661, 4697520, 69262556, 3270891392, 3413421 ####[facility] (DEFAULT)[address] [place] [address] 33797 Urea nitrogen [Mass/Vol] 10 mg/dL Normal 8-26 [facility] Comment on above: Performed By: #### 7 443381, 7236786, 08492308, 1447381462, 6769347 ####[facility] (DEFAULT)[address] [place] [address] 54620 Urea nitrogen/Creatinine [Mass ratio] 11.3 mg/mg Normal 4.6-16.2 [facility] Comment on above: Performed By: #### 7 698760, 1613974, 20949238, 8161750295, 4168692 ####[facility] (DEFAULT)[address] [place] [address] CBC w/ Auto Diffon 4 Erythrocyte distribution width (RBC) [Ratio] 16.2 % High 11.5-15.0 [facility] Comment on above: Performed By: #### 7 143233, 2800360, 12867421, 0080112361, 4676493 #### [facility] (DEFAULT) [address] [place] [address] Hematocrit (Bld) [Volume fraction] 35.9 % Normal 33.7-40.4 [facility] Comment on above: Performed By: #### 7 775079, 3944873, 21741850, 9215450717, 0156654 #### [facility] (DEFAULT) [address] [place] [address] Hemoglobin (Bld) [Mass/Vol] 11.7 g/dL Normal 11.3-15.9 [facility] Comment on above: Performed By: #### 7 209597, 4419678, 65542682, 9927648508, 9448027 #### [facility] (DEFAULT) [address] [place] [address] Man Diff? Auto Invalid Interpretation Code [facility] Comment on above: Performed By: #### 7 397696, 9921944, 54189727, 5310910888, 9206922 #### [facility] (DEFAULT) [address] [place] [address] MCH (RBC) [Entitic mass] 25 pg Normal 24-34 [facility] Comment on above: Performed By: #### 7 425839, 3367632, 06062523, 0672560006, 5118056 #### [facility] (DEFAULT) [address] [place] [address] MCHC (RBC) [Mass/Vol] 32 g/dL Normal 26-37 [facility] Comment on above: Performed By: #### 7 975204, 9305406, 87986713, 6898729778, 6058889 #### [facility] (DEFAULT) [address] [place] [address] MCV (RBC) [Entitic vol] 76 fL Low 81-100 [facility] Comment on above: Performed By: #### 7 076643, 8717585, 07464910, 4251547842, 8125917 #### [facility] (DEFAULT) [address] [place] [address] Platelet 384 x10 Normal 138-427 [facility] Comment on above: Performed By: #### 7 729901, 8406077, 37545046, 9322870474, 6027899 #### [facility] (DEFAULT) [address] [place] [address] Platelet mean volume (Bld) [Entitic vol] 7.2 fL Normal 6.3-10.2 [facility] Comment on above: Performed By: #### 7 391259, 3055165, 19552754, 7461837573, 1170553 #### [facility] (DEFAULT) [address] [place] [address] RBC 4.69 x10 Normal 3.70-5.30 [facility] Comment on above: Performed By: #### 7 877104, 8819431, 40276455, 6930966669, 4115871 #### [facility] (DEFAULT) [address] [place] [address] WBC 9.4 x10 Normal 3.5-10.5 [facility] Comment on above: Performed By: #### 7 366381, 6155288, 79213108, 3908824129, 0980338 #### [facility] (DEFAULT) [address] [place] [address] Consent Formson 01-26-2024 Consent Forms [id number] #[id number] [facility] ED Note-Nursingon 01-26-2024 ED Note-Nursing Patient admitted to the floor, hospitalist to review cultures. [facility] Magnesiumon 01-26-2024 Magnesium [Mass/Vol] 2.11 mg/dL Normal 1.80-2.50 [facility] Comment on above: Performed By: #### 7 507529, 1767529, 09441900, [id number], 7856532 ####[facility] (DEFAULT)[address] [place] [address] Pharmacy Noteon 01-26-2024 Pharmacy Note The following medications(s) has been reviewed for renal dose adjustment per P &T protocol based on the patient's current creatinine clearance: Medication: Piperacillin/Tazobac pritchett 3.375gm IV QID Estimated CrCl: 129.5 ml/min (based on adjusted body weight) Action: No change required Changes Made: [Electronically Signed on: 01/26/2024 09:54 EDT] Simba Kovacs PharmD [Verified on: 01/26/2024 09:54 EDT] Simba Kovacs PharmD Normal [facility] Pharmacy Note This is a 38 Yearsyo FEMALE presenting with Diagnosis for this visit Cellulitis of right elbow (L03.113) Elevated blood pressure reading (R03.0) Arm pain-swelling ([id number]) Abscess ([id number]) for IP vancomycin dosing per pharmacy to dose protocol. The patient currently has a serum creatinine of 0.88 and a creatinine clearance of 129.5. (based on adjusted body weight) The goal trough based on the above indication and upon chart review is 10-15 mcg/mL. Patient is a new start: The given loading dose is vancomycin IV 1500 mg (20 mg/kg (actual body weight) (max 3g) rounded to nearest 250 mg). The calculated maintenance dose is vancomycin IV 2000 mg Q 12 hours with the next trough draw on 01/28/24. [Electronically Signed on: 01/26/2024 09:50 EDT] Simba Kovacs PharmD [Verified on: 01/26/2024 09:50 EDT] Bethanie, Simba PharmD Normal [facility] Phoson 01-26-2024 Phosphate [Mass/Vol] 3.4 mg/dL Normal 2.5-4.6 [facility] Comment on above: Performed By: #### 7 789291, 1560655, 81951895, [id number], 2675298 ####[facility] (DEFAULT)[address] [place] [address] Progress Note - Nurseon 01-07 Progress Note - Nurse Patient wants to leave AMA Notified scripts called to [facility]. Patient signed AMA paperwork and states she will call a cab to go home. [Electronically Signed on: 01/26/2024 14:04 EDT] Meeta James RN [Verified on: 01/26/2024 14:04 EDT] Meeta James RN Normal [facility] .Auto Diff 1on 01-25-2024 Auto [place] % 5 % Normal -12 [facility] Comment on above: Performed By: #### 1 [id number], 5447529, [id number], [id number], 38923035, 2695634, 6634189388, [id number] ####[facility] (DEFAULT)[address] [place] [address] Baso Abs# 0.1 x10 Normal 0.0-0.2 [facility] Comment on above: Performed By: #### 1 [id number], 7825796, 1340598042, 8499179118, 15178961, 1130351, 5141536177, 8308261206 ####[facility] (DEFAULT)[address] [place] [address] 10901 Basophils/100 WBC (Bld) 1.0 % Normal 0.2-2.0 [facility] Comment on above: Performed By: #### 1 [id number], 1661604, 1813967990, 4789634408, 07394754, 9459906, 7120096284, 9924672406 ####[facility] (DEFAULT)[address] [place] [address] 83567 Eos Abs# 0.4 x10 Normal 0.0-0.4 [facility] Comment on above: Performed By: #### 1 [id number], 0909602, 3128615401, 8358751359, 94037753, 0181753, 9750450425, 4962155202 ####[facility] (DEFAULT)[address] [place] [address] 19984 Eosinophils/100 WBC (Bld) 3.4 % Normal 0.9-4.0 [facility] Comment on above: Performed By: #### 1 [id number], 9817657, 6532438625, 0340752064, 24452865, 7932861, 3568471015, 5026136453 ####[facility] (DEFAULT)[address] [place] [address] 97568 Lymph Abs# 4.2 x10 High 1.3-2.9 [facility] Comment on above: Performed By: #### 1 [id number], 2452665, 0271825506, 5622064428, 11612404, 7744371, 7551151518, 7151905646 ####[facility] (DEFAULT)[address] [place] [address] 15390 Lymphocytes/100 WBC (Bld) 40 % Normal 14-48 [facility] Comment on above: Performed By: #### 1 696906357, 5076770, 0330725811, 9546789658, 12848553, 0612343, 8231053820, 3543941339 ####[facility] (DEFAULT)[address] [place] [address] [place] Abs# 0.5 x10 Normal 0.0-0.8 [facility] Comment on above: Performed By: #### 1 347884992, 3058636, 5980249317, 5234502557, 63713949, 6382211, 8051628706, 7132390168 ####[facility] (DEFAULT)[address] [place] [address] Neut Abs# 5.4 x10 Normal 1.5-9.2 [facility] Comment on above: Performed By: #### 1 897413700, 8405618, 4560397688, 4691521488, 07761164, 1840549, 3930271043, 5669601175 ####[facility] (DEFAULT)[address] [place] [address] Neutrophils/100 WBC (Bld) 51 % Normal 44-88 [facility] Comment on above: Performed By: #### 1 876463966, 7990802, 4811226628, 5787998843, 29420205, 4855413, 1605582787, 9330495217 ####[facility] (DEFAULT)[address] [place] [address] CBC w/ Auto Diffon 4 Erythrocyte distribution width (RBC) [Ratio] 16.0 % High 11.5-15.0 [facility] Comment on above: Performed By: #### 1 [id number], 9867066, 0554617798, 7167499594, 08146997, 1609962, 2431993792, 6396595569 ####[facility] (DEFAULT)[address] [place] [address] Hematocrit (Bld) [Volume fraction] 36.9 % Normal 33.7-40.4 [facility] Comment on above: Performed By: #### 1 399235428, 3813071, 2303072717, 9449771020, 33316675, 4477729, 6335471646, 1237012349 ####[facility] (DEFAULT)[address] [place] [address] 52066 Hemoglobin (Bld) [Mass/Vol] 12.2 g/dL Normal 11.3-15.9 [facility] Comment on above: Performed By: #### 1 737807857, 9697166, 0633212328, 2614579332, 52469286, 9932371, 7367579067, 4876231540 ####[facility] (DEFAULT)[address] [place] [address] Man Diff? Auto Invalid Interpretation Code [facility] Comment on above: Performed By: #### 1 583250031, 8280484, 4357016622, 3630177755, 54402028, 4741137, 3623487161, 5980149411 ####[facility] (DEFAULT)[address] [place] [address] 02161 MCH (RBC) [Entitic mass] 25 pg Normal 24-34 [facility] Comment on above: Performed By: #### 1 227961126, 9990448, 6663865513, 6963930187, 45831686, 0296436, 0871974773, 6204717359 ####[facility] (DEFAULT)[address] [place] [address] 79598 MCHC (RBC) [Mass/Vol] 33 g/dL Normal 26-37 [facility] Comment on above: Performed By: #### 1 917624753, 2051561, 1985492763, 3655320304, 94943401, 2806090, 4219472772, 6447868087 ####[facility] (DEFAULT)[address] [place] [address] 09156 MCV (RBC) [Entitic vol] 76 fL Low 81-100 [facility] Comment on above: Performed By: #### 1 778856335, 2030451, 0942192871, 2204525244, 11449494, 4403259, 9481942755, 9653062966 ####[facility] (DEFAULT)[address] [place] [address] 71059 Platelet 394 x10 Normal 138-427 [facility] Comment on above: Performed By: #### 1 287970111, 3030371, 6262504878, 8341813523, 23338052, 6982262, 8636137639, 0711916947 ####[facility] (DEFAULT)[address] [place] [address] Platelet mean volume (Bld) [Entitic vol] 7.0 fL Normal 6.3-10.2 [facility] Comment on above: Performed By: #### 1 716360508, 4659485, 6419388016, 5524543587, 59870520, 3005637, 7335423594, 7030557335 ####[facility] (DEFAULT)[address] [place] [address] RBC 4.84 x10 Normal 3.70-5.30 [facility] Comment on above: Performed By: #### 1 982827537, 3245136, 0953089420, 3756896907, 77120434, 2272219, 2135089797, 9749338879 ####[facility] (DEFAULT)[address] [place] [address] WBC 10.7 x10 High 3.5-10.5 [facility] Comment on above: Performed By: #### 1 208641316, 8168487, 3853140800, 9564161806, 49833302, 7265505, 5572149491, 7478403038 ####[facility] (DEFAULT)[address] [place] [address] Standardon 01-25-2024 eGFR Non AA >60 Invalid Interpretation Code [facility] Comment on above: Performed By: #### 1 347673246, 4906383, 2481179148, 1511655344, 45509510, 9008615, 0047152235, 8273285211 ####[facility] (DEFAULT)[address] [place] [address] eGFR AA >60 Invalid Interpretation Code [facility] Comment on above: Performed By: #### 1 437119633, 3178094, 0578568179, 5715805234, 52449091, 4001811, 8015424054, 4716653089 ####[facility] (DEFAULT)[address] [place] [address] 45684 Albumin [Mass/Vol] 3.6 g/dL Normal 3.5-5.0 [facility] Comment on above: Performed By: #### 1 091898838, 5467377, 5685499623, 4117431211, 94620257, 4581974, 2786618612, 1964241537 ####[facility] (DEFAULT)[address] [place] [address] Albumin/Globulin [Mass ratio] 0.7 {ratio} Low 1.4-2.6 [facility] Comment on above: Performed By: #### 1 513015765, 5967677, 7946218609, 0313306126, 45481901, 3847404, 0766836611, 7016762196 ####[facility] (DEFAULT)[address] [place] [address] Alk Phos 78 IU/L Normal 32-91 [facility] Comment on above: Performed By: #### 1 384937795, 6746029, 2502848415, 9668997811, 26831618, 9633871, 1358917950, 8117230659 ####[facility] (DEFAULT)[address] [place], [place] [address] ALT [Catalytic activity/Vol] 24.0 U/L Normal 14.0-54.0 [facility] Comment on above: Performed By: #### 1 485041599, 5551429, 9524740654, 6653876737, 93024008, 1706406, 9725548528, 4438698311 ####[facility] (DEFAULT)[address] [place] [address] 75046 Anion gap [Moles/Vol] 11.5 mmol/L Normal 5.0-19.0 [facility] Comment on above: Performed By: #### 1 701887454, 3179499, 0673788602, 8023555927, 13566860, 4531400, 3262011462, 3130556211 ####[facility] (DEFAULT)[address] [place] [address] 65928 AST [Catalytic activity/Vol] 29 U/L Normal 15-41 [facility] Comment on above: Performed By: #### 1 048519218, 2803731, 3840858188, 3261401462, 27822650, 1163933, 0014682447, 3778112647 ####[facility] (DEFAULT)[address] [place] [address] 66757 Bili Total 0.3 mg/dL Normal 0.3-1.2 [facility] Comment on above: Performed By: #### 1 674337144, 6850556, 2035795062, 1834962688, 28216079, 1960057, 0042375798, 0303696307 ####[facility] (DEFAULT)[address] [place] [address] 03299 Calcium [Mass/Vol] 8.6 mg/dL Low 8.9-10.3 [facility] Comment on above: Performed By: #### 1 281925242, 0495349, 0902767185, 5197524156, 30401338, 9716837, 3895080312, 2031599182 ####[facility] (DEFAULT)[address] [place] [address] 95517 Chloride [Moles/Vol] 98 mmol/L Low 101-111 [facility] Comment on above: Performed By: #### 1 225830929, 4616607, 2225581778, 0388053611, 85601139, 0225239, 5218616618, 5440871209 ####[facility] (DEFAULT)[address] [place] [address] 47661 CO2 [Moles/Vol] 28 mmol/L Normal 21-32 [facility] Comment on above: Performed By: #### 1 229013458, 6143054, 3187819381, 6875633225, 46705571, 4944802, 5676681731, 6382500746 ####[facility] (DEFAULT)[address] [place] [address] 51629 Creatinine [Mass/Vol] 0.90 mg/dL Normal 0.60-1.30 [facility] Comment on above: Performed By: #### 1 030616282, 7977746, 5881479358, 9963925261, 50778302, 7036665, 4306474163, 6397903659 ####[facility] (DEFAULT)[address] [place] [address] 70166 Globulin (S) [Mass/Vol] 4.8 g/dL High 1.5-4.3 [facility] Comment on above: Performed By: #### 1 591778264, 4835565, 6576270702, 7548785387, 23457195, 6459059, 9657730640, 4528660663 ####[facility] (DEFAULT)[address] [place] [address] 60469 Glucose [Mass/Vol] 137.0 mg/dL High 74.0-118.0 [facility] Comment on above: Performed By: #### 1 848440409, 2875552, 2022542901, 9790407320, 45537808, 5350929, 3096350171, 4160383344 ####[facility] (DEFAULT)[address] [place] [address] 85855 Osmolality 270 mOsm/L Invalid Interpretation Code [facility] Comment on above: Performed By: #### 1 570683762, 4849462, 1921466879, 1935426913, 12072217, 6299651, 8034193522, 3961384701 ####[facility] (DEFAULT)[address] [place] [address] 96946 Potassium [Moles/Vol] 3.5 mmol/L Low 3.6-5.1 [facility] Comment on above: Performed By: #### 1 726479279, 4595182, 2085312680, 6765920352, 07459683, 2981672, 0763129879, 5960181214 ####[facility] (DEFAULT)[address] [place] [address] 80555 Protein [Mass/Vol] 8.4 g/dL High 6.5-8.1 [facility] Comment on above: Performed By: #### 1 193438639, 1955815, 0516298892, 1883140667, 07818058, 9289911, 8081210865, 9141201041 ####[facility] (DEFAULT)[address] [place] [address] Sodium [Moles/Vol] 134.0 mmol/L Low 136.0-144.0 [facility] Comment on above: Performed By: #### 1 364910566, 6868911, 5573836803, 6004828091, 65678522, 5485185, 1745977572, 5558226451 ####[facility] (DEFAULT)[address] [place] [address] Urea nitrogen [Mass/Vol] 11 mg/dL Normal 8-26 [facility] Comment on above: Performed By: #### 1 162516957, 6669948, 4272151115, 7122298927, 35293125, 0079411, 9799374627, 2758884970 ####[facility] (DEFAULT)[address] [place] [address] Urea nitrogen/Creatinine [Mass ratio] 12.2 mg/mg Normal 4.6-16.2 [facility] Comment on above: Performed By: #### 1 261127762, 7740405, 0772215339, 7905208546, 60950056, 4490194, 3796116180, 2122804097 ####[facility] (DEFAULT)[address] [place] [address] 92031 CRPon 01-25-2024 CRP 5.8 mg/dL High <=0.5 [facility] Comment on above: Performed By: #### 1 549449211, 9300595, 5338872913, 7199657281, 84065791, 8633328, 6318307658, 1484508915 ####[facility] (DEFAULT)[address] [place] [address] CT Upper Extremity w/ Contra st [place] 01-25-2024 CT Upper Extremity w/ Contrast Right EXAMINATION: CT Upper Extremity w/ Contrast Right HISTORY: Right elbow pain, swelling, history of MRSA COMPARISON: None. TECHNIQUE: Multiple thin section transaxial slices were acquired through the right upper extremity with intravenous contrast. Coronal and sagittal reconstructed images were reviewed. Dose reduction techniques were achieved by using automated exposure control and/or adjustment of mA and/or kV according to patient size and/or use of iterative reconstruction technique. FINDINGS: There is severe subcutaneous soft tissue edema along the posterior elbow. Additional subcutaneous edema is present medially and laterally to a lesser extent. No organized collections of fluid are present that would suggest abscess. The extent of fluid extends beyond the olecranon bursal space and is not typical for olecranon bursitis. The imaging characteristics favor severe cellulitis. There is no gas in the soft tissues. No significant joint effusion is associated with the elbow. No acute fractures are present in the right elbow. No bony erosive changes are present to suggest osteomyelitis. IMPRESSION: Severe subcutaneous soft tissue edema along the posterior elbow with additional subcutaneous edema medially and laterally to a lesser extent. Based on the imaging characteristics discussed above, this is favored to represent severe cellulitis. No associated osteomyelitis. Final Dictated by: Yady Michael MD Dictated DT/TM: 01/25/24 9:45 Signed (Electronic Signature): Yady Michael MD 01/25/24 9:53 pm Technologist: CHAR Villavicencio [facility] ED Clinical Summaryon 2023 ED Clinical Summary [facility] - Emergency Department [address] [place] [address] 43452 ED Clinical Summary PERSON INFORMATION Name: ELLYN CUEVAS Age: 38 Years Sex: FEMALE : 1985 MRN: Acct#: Visit Reason: Abscess; Arm pain-swelling; RT ELBOW CELLULITIS Arrival: 01/25/2024 18:59:32 Discharge: LOS: 000 03:23 Check In: 01/25/2024 18:59:32 Checkout:01/25/2024 22:22:08 Address: [address] [place] [address] PCP: Provider, None PROVIDER INFORMATION Provider Role Assigned Unassigned Billie Cortez RN ED Nurse 01/25/2024 19:04:19 Arslan Christiansen MD ED Provider 01/25/2024 19:08:35 VITALS INFORMATION Vital Sign Triage Latest Temperature Tympanic Temperature Temporal Artery Pulse Rate 116 bpm 84 bpm O2 Sat 96 % 95 % Respiratory Rate 20 br/min 18 br/min Blood Pressure /102 mmHg /102 mmHg MEDICAL INFORMATION Medications Given: Medication Dose Route vancomycin 1500 mg IV Piggyback Sodium Chloride 0.9% intravenous solution 1,000 mL 1000 mL Initial Volume 1000 mL/hr IV Left Antecubital Fossa iohexol (Omnipaque 350 100 ml) 350 mg IV Push Allergy Information: naproxen PHYSICIAN DOCUMENTATION DISCHARGE INFORMATION: Discharge Disposition: Admitted as Observation Discharge Location: PATIENT EDUCATION INFORMATION Instructions: Follow-Up: DIAGNOSIS: 1:Cellulitis of right elbow; 2:Elevated blood pressure reading Patient Understands: Yes - Patient/family/careg iver verbalizes understanding of instructions given Comment: [facility] ED Note-Nursingon 01-25-2024 ED Note-Nursing Patient has nobody to pick out hand her 7 year old child. She is making phone calls. Will keep patient in ED until she finds someone to pick child up. [facility] ED Patient Education Noteon 01-25-2024 ED Patient Education Note Education Materials [facility] ED Patient Summaryon 024 ED Patient Summary [facility] - Emergency Department [address] [place] [address] PATIENT DISCHARGE INSTRUCTIONS Patient Information Name: ELLYN CUEVAS Age: 38 Years Date of : 1985 Reason For Visit: Abscess; Arm pain-swelling; RT ELBOW CELLULITIS Arrival Time: 01/25/2024 18:59:32 Primary Care Physician: Provider, None Attending Physician: Morgan Anton MD Comment: Visit Diagnosis: Diagnoses This Visit Abscess ([id number]) Arm pain-swelling ([id number]) Cellulitis of right elbow (L03.113) Elevated blood pressure reading (R03.0) The Pharmacy at [facility] is open Tuesday through Tuesday from 9A to 6P and Tuesday and Tuesday from 9A to 5P Prescription Information: If you have been given a prescription for narcotics, seek immediate medical attention if you have any difficulty breathing or any sudden status changes such as confusion and sleepiness. If you or anyone you know is experiencing suicidal thoughts, mental health, alcohol and/or drug addiction problems; contact the [facility] 29/11 Crisis Hotline -Text 4HOBJ to 417031. If you received any narcotics, sedation, or [...] business decisions or sign any legal documents Medication Information: The exam and treatment you received today in the [facility] Emergency Department were for an urgent problem and are not intended as complete care. It is important for you to follow up with a doctor, nurse practitioner, or physician?s construction administrative assistant for ongoing care. If your symptoms become worse or you do not improve as expected and you are unable to reach your usual health care provider, you should return to the Emergency Department, we are available 24 hours a day. For those patients who have received Radiology results, the interpretation of your X-ray as given to you by our Emergency Department physician is only a preliminary report. The Radiologist will review your films and if there is a change in the diagnosis you will be notified by phone. Please make sure you have provided a working phone number so we can reach you if necessary. In the event that you had a lab culture while you were a patient in the Emergency Department, you will be notified by phone if there is a need to change your antibiotic. Please make sure you have provided a working phone number so we can reach you if necessary. [facility] Emergency Department has provided you with a complete list of medications post discharge. Please inform your manager primary care/provider of your visit and for further instruction on these medications. Any specific questions regarding your chronic medications and dosages should be discussed with your primary care physician(s) and/or pharmacist. Medications to Continue That Have Not Changed Other Medications albuterol (Albuterol (Eqv-Proventil HFA) 90 mcg/inh inhalation aerosol) 2 puff(s) Inhale (breathe in) every 6 hours for 7 Days. 2 puffs every 6 hours as needed.. Refills: 0. ammonium lactate topical (ammonium lactate 12% topical cream) 1 ravi Topical (on the skin) once a day (at bedtime). Refills: 2. buprenorphine-naloxo ne (Suboxone 8 mg-2 mg sublingual film) 1 Each Sublingual (dissolve under the tongue) 2 times per day. busPIRone (busPIRone 15 mg oral tablet) TAKE 2 TABLETS BY MOUTH EVERY MORNING AND TAKE 1 TABLET EVERY EVENING. Refills: 2. cephalexin (cephalexin 500 mg oral capsule) 2 cap(s) Oral (given by mouth) every 12 hours for 10 Days. Refills: 0. levothyroxine (levothyroxine 150 mcg (0.15 mg) oral tablet) TAKE 1 TABLET BY MOUTH ONCE DAILY. Refills: 2. lisinopril (lisinopril 20 mg oral tablet) TAKE ONE TABLET BY MOUTH ONCE DAILY. magnesium oxide (magnesium oxide 400 mg oral tablet) 1 tab(s) Oral (given by mouth) 2 times per day. metoprolol (Metoprolol Tartrate 25 mg oral tablet) 1 tab(s) Oral (given by mouth) every day. Refills: 3. mupirocin topical (mupirocin 2% topical ointment) 1 ravi Topical (on the skin) 3 times per day for 10 Days. Refills: 1. sulfamethoxazole-tri methoprim (Bactrim DS 800 mg-160 mg oral tablet) 1 tab(s) Oral (given by mouth) 2 times per day for 10 Days. Refills: 0. Visit Information Allergies: Substance Reaction Symptoms Type Comments naproxen blisters Drug Vital Signs: Vitals and Measurements this Visit (last charted value for your 01/25/2024 visit) Vital Signs This Visit Temperature Oral: 36.8 DegC Peripheral Pulse Rate: 84 bpm Respiratory Rate: 18 br/min Systolic Blood Pressure: 147 mmHg Diastolic Blood Pressure: 87 mmHg Mean Arterial Pressure, Cuff-Calculation: 1 (more content not included)... Normal [facility] Extra Redon 01-25-2024 Tube Collected Yes Invalid Interpretation Code [facility] Comment on above: Performed By: #### 1 [id number], 5458889, 2030004403, 2528440866, 10650274, 9578524, 1734146560, 4666733195 ####[facility] (DEFAULT)[address] [place] [address] Lactic Acidon 01-25-2024 Lactic Acid 13.7 mg/dL Normal 4.5-19.8 [facility] Comment on above: Performed By: #### 2 [id number] ####[facility] (DEFAULT)[address] [place] [address] 99998 ED Clinical Summaryon 2023 ED Clinical Summary [facility] - Emergency Department [address] [place], [place] [id number] ED Clinical Summary PERSON INFORMATION Name: ELLYN CUEVAS Age: 38 Years Sex: FEMALE : 1985 MRN: Acct#: Visit Reason: Arm pain-swelling; UPPER RT ARM SWOLLEN AND RED Arrival: 01/22/2024 15:56:29 Discharge: 01/22/2024 16:27:00 LOS: 000 00:31 Check In: 01/22/2024 15:56:29 Checkout:01/22/2024 16:27:00 Address: [address] [place] [address] PCP: Provider, None PROVIDER INFORMATION Provider Role Assigned Unassigned Arslan Christiansen MD ED Provider 01/22/2024 15:58:03 Ann Monroe LAMINATOR PREFORMS Nurse 01/22/2024 16:16:07 VITALS INFORMATION Vital Sign Triage Latest Temperature Tympanic Temperature Temporal Artery Pulse Rate O2 Sat 93 % 94 % Respiratory Rate 18 br/min 17 br/min Blood Pressure /102 mmHg /102 mmHg MEDICAL INFORMATION Medications Given: Medication Dose Route cephalexin 1000 mg Oral sulfamethoxazole-tri methoprim (Bactrim DS 800 mg-160 mg oral tablet) 1 tab(s) Oral Allergy Information: naproxen PHYSICIAN DOCUMENTATION DISCHARGE INFORMATION: Discharge Disposition: Home Discharge Location: Home PATIENT EDUCATION INFORMATION Instructions: Hypertension, Adult, Qguz-yp-Obia; Cellulitis, Adult, Fgnu-fw-Buiw Follow-Up: With: Address: When: Follow up with primary care provider Within 3 to 5 days DIAGNOSIS: 1:Cellulitis of right elbow; 2:Elevated blood pressure reading Patient Understands: Yes - Patient/family/careg iver verbalizes understanding of instructions given Comment: Normal [facility] ED Patient Summaryon 024 ED Patient Summary [facility] Emergency Department [address] [place] [address] PATIENT DISCHARGE INSTRUCTIONS Patient Information Name: ELLYN CUEVAS Age: 38 Years Date of : 1985 Reason For Visit: Arm pain-swelling; UPPER RT ARM SWOLLEN AND RED Arrival Time: 01/22/2024 15:56:29 Primary Care Physician: Provider, None Attending Physician: Arslan Christiansen MD Comment: Visit Diagnosis: Diagnoses This Visit Arm pain-swelling ([id number]) Cellulitis of right elbow (L03.113) Elevated blood pressure reading (R03.0) The Pharmacy at [facility] is open Tuesday through Tuesday from 9A to 6P and Tuesday and Tuesday from 9A to 5P Prescription Information: If you have been given a prescription for narcotics, seek immediate medical attention if you have any difficulty breathing or any sudden status changes such as confusion and sleepiness. If you or anyone you know is experiencing suicidal thoughts, mental health, alcohol and/or drug addiction problems; contact the [facility] 29/11 Crisis Hotline -Text 1BFDP su 009852. If you received any narcotics, sedation, or [...] Follow up with primary care provider Within 3 to 5 days Medication Information: The exam and treatment you received today in the [facility] Emergency Department were for an urgent problem and are not intended as complete care. It is important for you to follow up with a doctor, nurse practitioner, or physician?s construction administrative assistant for ongoing care. If your symptoms become worse or you do not improve as expected and you are unable to reach your usual health care provider, you should return to the Emergency Department, we are available 24 hours a day. For those patients who have received Radiology results, the interpretation of your X-ray as given to you by our Emergency Department physician is only a preliminary report. The Radiologist will review your films and if there is a change in the diagnosis you will be notified by phone. Please make sure you have provided a working phone number so we can reach you if necessary. In the event that you had a lab culture while you were a patient in the Emergency Department, you will be notified by phone if there is a need to change your antibiotic. Please make sure you have provided a working phone number so we can reach you if necessary. [facility] Emergency Department has provided you with a complete list of medications post discharge. Please inform your manager primary care/provider of your visit and for further instruction on these medications. Any specific questions regarding your chronic medications and dosages should be discussed with your primary care physician(s) and/or pharmacist. New Medications [facility] at [facility], [address] [place] [address] [phone], [phone] cephalexin (cephalexin 500 mg oral capsule) 2 cap(s) Oral (given by mouth) every 12 hours for 10 Days. Refills: 0. mupirocin topical (mupirocin 2% topical ointment) 1 ravi Topical (on the skin) 3 times per day for 10 Days. Refills: 1. sulfamethoxazole-tri methoprim (Bactrim DS 800 mg-160 mg oral tablet) 1 tab(s) Oral (given by mouth) 2 times per day for 10 Days. Refills: 0. Additional medications on your home medication list not specifically addressed. Please contact the ordering physician if you have questions about these medications. albuterol (Albuterol (Eqv-Proventil HFA) 90 mcg/inh inhalation aerosol) 2 puff(s) Inhale (breathe in) every 6 hours for 7 Days. 2 puffs every 6 hours as needed.. Refills: 0. albuterol (albuterol 90 mcg/inh inhalation aerosol) 2 puff(s) Inhale (breathe in) every 6 hours. as needed for wheezing. Refills: 3. ammonium lactate topical (ammonium lactate 12% topical cream) 1 ravi Topical (on the skin) once a day (at bedtime). Refills: 2. buprenorphine-naloxo ne (Suboxone 8 mg-2 mg sublingual film) 1 Each Sublingual (dissolve under the tongue) 2 times per day. busPIRone (busPIRone 15 mg oral tablet) TAKE 2 TABLETS BY MOUTH EVERY MORNING AND TAKE 1 TABLET EVERY EVENING. Refills: 2. Durable Medical Equipment for Prescription (METOPROLOL TARTRATE 25 MG Tablet) TAKE ONE TABLET BY MOUTH TWICE A DAY. levothyroxine (levothyroxine 150 mcg (0.15 mg) oral tablet) TAKE 1 TABLET BY MOUTH ONCE DAILY. Refills: 2. lisinopril (lisinopril 20 mg oral tablet) TAKE ONE TABLET BY MOUTH ONCE DAILY. magnesium oxide (magnesium oxide 400 mg oral tablet) 1 tab(s) Oral (given by mouth) 2 times per day. metoprolol (Metoprolol (more content not included)... Normal [facility] CBC AUTO DIFFon 04-09-2022 BASO # 0.1 103/ul Normal 0.0-0.1 [facility] Comment on above: Performed By: #### C BC #### [facility] [address] [place] [address] Dr. Andra Zamarripa Basophils/100 WBC (Bld) 0.6 % Normal 0.2-2.0 [facility] Comment on above: Performed By: #### C BC #### [facility] [address] [place] [address] Dr. Andra Zamarripa EO # 0.3 103/ul Normal 0.0-0.7 [facility] Comment on above: Performed By: #### C BC #### [facility] [address] [place] [address] Dr. Andra Zamarripa Eosinophils/100 WBC (Bld) 2.1 % Normal 0.9-7.0 [facility] Comment on above: Performed By: #### C BC #### [facility] [address] [place] [address] Dr. Andra Zamarripa Erythrocyte distribution width (RBC) [Ratio] 20.6 % Critically high 11.0-15.0 [facility] Comment on above: Performed By: #### C BC #### [facility] [address] [place] [address] Dr. Andra Zamarripa Hematocrit (Bld) [Volume fraction] 39.5 % Normal 36.0-48.0 [facility] Comment on above: Performed By: #### C BC #### [facility] [address] [place] [address] Dr. Andra Zamarripa Hemoglobin (Bld) [Mass/Vol] 12.1 g/dL Normal 12.0-16.0 [facility] Comment on above: Performed By: #### C BC #### [facility] [address] [place] [address] Dr. Andra Zamarripa IG # 0.06 10e3/ul Critically high 0.00-0.03 [facility] Comment on above: Performed By: #### C BC #### [facility] [address] [place] [address] Dr. Andra Zamarripa IG % 0.4 % Normal 0.0-0.5 [facility] Comment on above: Performed By: #### C BC #### [facility] [address] [place] [address] Dr. Andra Zamarripa LYMPH # 4.2 103/ul Critically high 1.2-3.8 [facility] Comment on above: Performed By: #### C BC #### [facility] [address] [place] [address] Dr. nAdra Zamarripa Lymphocytes/100 WBC (Bld) 26.3 % Normal 20.5-60.0 [facility] Comment on above: Performed By: #### C BC #### [facility] [address] [place] [address] Dr. Andra Zamarripa MANUAL DIFF REQ NO Normal [facility] Comment on above: Performed By: #### C BC #### [facility] [address] [place] [address] Dr. Andra Zamarripa MCH (RBC) [Entitic mass] 21.3 pg Critically low 26.7-34.0 [facility] Comment on above: Performed By: #### C BC #### [facility] [address] [place] [address] Dr. Andra Zamarripa MCHC (RBC) [Mass/Vol] 30.6 g/dL Normal 29.9-35.2 [facility] Comment on above: Performed By: #### C BC #### [facility] [address] [address] [address] Andra Zamarripa MCV (RBC) [Entitic vol] 69.4 fL Critically low 81.0-99.0 [facility] Comment on above: Performed By: #### C BC #### [facility] [address] [address] [address] Andra Zamarripa MONO # 0.7 103/ul Normal 0.3-0.8 [facility] Comment on above: Performed By: #### C BC #### [facility] [address] [address] [address] Andra Zamarripa Monocytes/100 WBC (Bld) 4.4 % Normal 1.7-12.0 [facility] Comment on above: Performed By: #### C BC #### [facility] [address] [address] [address] Andra Zamarripa NEUT # 10.6 103/ul Critically high 1.4-6.5 [facility] Comment on above: Performed By: #### C BC #### [facility] [address] [address] [address] Andra Zamarripa Neutrophils/100 WBC (Bld) 66.2 % Normal 43.0-75.0 [facility] Comment on above: Performed By: #### C BC #### [facility] [address] [address] [address] Andra Zamarripa Platelet mean volume (Bld) [Entitic vol] 9.1 fL Critically low 9.5-13.5 [facility] Comment on above: Performed By: #### C BC #### [facility] [address] [address] [address] Andra Zamarripa PLT 454 103/ul Critically high 150-450 [facility] Comment on above: Performed By: #### C BC #### [facility] [address] [address] [address] Andra Zamarripa RBC 5.69 106/ul Critically high 4.20-5.40 [facility] Comment on above: Performed By: #### C BC #### [facility] [address] [place], [place] [address] Dr. Andra Zamarripa WBC 16.0 103/ul Critically high 4.0-11.0 [facility] Comment on above: Performed By: #### C BC #### [facility] [address] [place], [place] [address] ABD/PELVIS WO CONon [...] Liz BURRELL Date: 2022-04-09 21:04 Normal [facility]on SARS-CoV-2 (COVID-19) RNA DEE+probe Ql (Unsp spec) Not detected Normal NOT DETECTED [facility] Comment on above: Result Comment: When diagnostic [...] for this test is supported by the [place] of Health and Human Service's declaration that [...] used). Performed By: #### C VDTB #### [facility] [address] [place] [address] Dr. Andra Zamarripa ER URINE PROFILEon 2 Bilirubin Ql (U) Negative Normal NEGATIVE [facility] Comment on above: Performed By: #### E RUR, PREGU #### [facility] [address] [place] [address] Dr. Andra Zamarripa Clarity (U) CLEAR Normal CLEAR [facility] Comment on above: Performed By: #### E RUR, PREGU #### [facility] [address] [place] [address] Dr. Andra Zamarripa Color (U) YELLOW Normal YELLOW [facility] Comment on above: Performed By: #### E RUR, PREGU #### [facility] [address] [place] [address] Dr. Andra Zamarripa ERUAHD A micrscopic examination will be performed if indicated. Normal [facility] Comment on above: Performed By: #### E RUR, PREGU #### [facility] [address] [place] [address] Dr. Andra Zamarripa Glucose Ql (U) Negative Normal NEGATIVE [facility] Comment on above: Performed By: #### E RUR, PREGU #### [facility] [address] [place] [address] Dr. Andra Zamarripa Hemoglobin Ql (U) Negative Normal NEGATIVE [facility] Comment on above: Performed By: #### E RUR, PREGU #### [facility] [address] [address] [address] Andra Zamarripa Ketones Ql (U) Negative Normal NEGATIVE [facility] Comment on above: Performed By: #### E RUR, PREGU #### [facility] [address] [place] [address] Dr. Andra Zamarripa LEUKOCYTES Negative Normal NEGATIVE [facility] Comment on above: Performed By: #### E RUR, PREGU #### [facility] [address] [place] [address] Dr. Andra Zamarripa Nitrite Ql (U) Negative Normal NEGATIVE [facility] Comment on above: Performed By: #### E RUR, PREGU #### [facility] [address] [place] [address] Dr. Andra Zamarripa pH (U) 7.0 [pH] Normal 5-9 [facility] Comment on above: Performed By: #### E RUR, PREGU #### [facility] [address] [place] [address] Dr. Andra Zamarripa SPEC GRAVITY 1.020 Normal 1.005-<=1.025 [facility] Comment on above: Performed By: #### E RUR, PREGU #### [facility] [address] [place] [address] Dr. Andra Zamarripa UA PROTEIN Negative Normal NEGATIVE/ TRACE [facility] Comment on above: Performed By: #### E RUR, PREGU #### [facility] [address] [place] [address] Dr. Andra Zamarripa UR MICRO IND NOT INDICATED Normal [facility] Comment on above: Performed By: #### E RUR, PREGU #### [facility] [address] [place] [address] Dr. Andra Zamarripa Urobilinogen Qn (U) 2.0 {Rosa'U}/dL Abnormal 0.2 - 1. 0 [facility] Comment on above: Performed By: #### E RUR, PREGU #### [facility] [address] [place] [address] Dr. Andra Zamarripa INFLUENZA A AND B AGon 04-09 INFLUENZA A AG Negative Normal NEGATIVE SEE COMMENT [facility] Comment on above: Performed By: #### I NFLUAB #### [facility] [address] [address] [address] Andra Zamarripa INFLUENZA B AG Negative Normal NEGATIVE SEE COMMENT [facility] Comment on above: Performed By: #### I NFLUAB #### [facility] [address] [address] [address] Andra Zamarripa INFLUPOSH SEE BELOW Normal [facility] Comment on above: Result Comment: NOTE : Live attenuated influenzae vaccine viruses can cause a positive result for a rapid influenza diagnostic test if administered up to 7 days prior to rapid testing. Performed By: #### I NFLUAB #### [facility] [address] [place] [address] Dr. Andra Zamarripa INFLUPOSHB SEE BELOW Normal [facility] Comment on above: Result Comment: NOTE : Live attenuated influenzae vaccine viruses can cause a positive result for a rapid influenza diagnostic test if administered up to 7 days prior to rapid testing. Performed By: #### I NFLUAB #### [facility] [address] [place] [address] Dr. Andra Zamarripa INTERNAL CONTROLS Within Normal Limits Normal Wi thin Normal Limits [facility] Comment on above: Performed By: #### I NFLUAB #### [facility] [address] [place] [address] Dr. Andra Zamarripa URon 04-09-2022 , QUAL Negative Normal NEGATIVE [facility] Comment on above: Performed By: #### E RUR, PREGU #### [facility] [address] [place] [address] Dr. Andra Zamarripa PROF 14(COMP METB)on 022 Albumin [Mass/Vol] 3.8 g/dL Normal 3.4-5.0 [facility] Comment on above: Performed By: #### C MP #### [facility] [address] [place] [address] Dr. Andra Zamarripa Albumin/Globulin [Mass ratio] 0.7 {ratio} Normal [facility] Comment on above: Performed By: #### C MP #### [facility] [address] [address] [address] Andra Zamarripa ALP [Catalytic activity/Vol] 93 U/L Normal 46-116 [facility] Comment on above: Performed By: #### C MP #### [facility] [address] [address] [address] Andra Zamarripa ALT [Catalytic activity/Vol] 25 U/L Normal 14-59 [facility] Comment on above: Performed By: #### C MP #### [facility] [address] [address] [address] Andra Zamarripa Anion gap [Moles/Vol] 5.9 mmol/L Normal [facility] Comment on above: Performed By: #### C MP #### [facility] [address] [place] [address] Dr. Andra Zamarripa AST [Catalytic activity/Vol] 25 U/L Normal 15-37 [facility] Comment on above: Performed By: #### C MP #### [facility] [address] [address] [address] Andra Zamarripa Bilirubin [Mass/Vol] 0.3 mg/dL Normal 0.2-1.0 [facility] Comment on above: Performed By: #### C MP #### [facility] [address] [address] [address] Andra Zamarripa Calcium [Mass/Vol] 8.7 mg/dL Normal 8.5-10.1 [facility] Comment on above: Performed By: #### C MP #### [facility] [address] [address] [address] Andra Zamarripa Chloride [Moles/Vol] 97 mmol/L Critically low 98-107 [facility] Comment on above: Performed By: #### C MP #### [facility] [address] [address] [address] Andra Zamarripa CO2 [Moles/Vol] 33.4 mmol/L Critically high 21.0-32.0 [facility] Comment on above: Performed By: #### C MP #### [facility] [address] [address] [address] Andra Zamarripa Creatinine [Mass/Vol] 1.24 mg/dL Critically high 0.55-1.02 [facility] Comment on above: Performed By: #### C MP #### [facility] [address] [address] [address] Andra Zamarripa EGFR-AF ANGOLAN 59 mL/min/1.73m2 Critically low >=60 [facility] Comment on above: Performed By: #### C MP #### [facility] [address] [address] [address] Andra Zamarripa EGFR-NON AF ANGOLAN 48 mL/min/1.73m2 Critically low >=60 [facility] Comment on above: Performed By: #### C MP #### [facility] [address] [address] [address] Andra Zamarripa Globulin (S) [Mass/Vol] 5.2 g/dL Normal [facility] Comment on above: Performed By: #### C MP #### [facility] [address] [address] [address] Andra Zamarripa Glucose [Mass/Vol] 136 mg/dL Critically high 74-106 [facility] Comment on above: Performed By: #### C MP #### [facility] [address] [address] [address] Andra Zamarripa Potassium [Moles/Vol] 3.3 mmol/L Critically low 3.5-5.1 [facility] Comment on above: Performed By: #### C MP #### [facility] [address] [address] [address] Andra Zamarripa Protein [Mass/Vol] 9.0 g/dL Critically high 6.4-8.2 [facility] Comment on above: Performed By: #### C MP #### [facility] [address] [address] [address] Andra Zamarripa Sodium [Moles/Vol] 133 mmol/L Critically low 136-145 [facility] Comment on above: Performed By: #### C MP #### [facility] [address] [address] [address] Andra Zamarripa Urea nitrogen [Mass/Vol] 12.0 mg/dL Normal 7.0-18.0 [facility] Comment on above: Performed By: #### C MP #### [facility] [address] [address] [address] Andra Zamarripa Urea nitrogen/Creatinine [Mass ratio] 9.7 mg/mg Normal [facility] Comment on above: Performed By: #### C MP #### [facility] [address] [address] [address] Andra Zamarripa Encounters Encounter Date Encounter Type Care Provider Facility Start: 10-11-2024 End: 10-11-2024 ambulatory Barbara L Madelin Facility:[facility] Start: 09-27-2024 ambulatory Barbara L Madelin Facility: [facility] Start: 08-16-2024 End: 08-16-2024 Lab Drop off Barbara L Madelin [facility] Start: 08-16-2024 End: 08-16-2024 ambulatory [employer] Barbara L Madelin Facility:[facility] Start: 07-16-2024 ambulatory [employer] Barbara L Madelin Facil ity:[facility] Start: 07-09-2024 End: 07-09-2024 ambulatory [employer] Barbara L Madelin Facility:[facility] Start: 07-04-2024 End: 07-04-2024 ambulatory [employer] Barbara L Madelin Facility:[facility] Start: 07-04-2024 End: 07-04-2024 Patient encounter procedure Barbara L Madelin [facility] Start: 05-30-2024 End: 05-30-2024 ambulatory [employer] Barbara L Madelin Facility:[facility] Start: 01-25-2024 End: 01-26-2024 ambulatory None Provider Facility:[facility] Start: 01-25-2024 End: 01-26-2024 ambulatory None Provider Facility: [facility] Start: 01-22-2024 End: 01-22-2024 Emergency department patient visit Arslanlorraine Floresjuan josé Facility:[facility] Start: 04-09-2022 End: 04-09-[address] DOCTOR VALENTIN Facility:[facility] Procedures Date Procedure Procedure Detail Performing Clinician Cholecystectomy Barbara Madelin Deliveries by (finding) Barbara Madelin Surgical procedure Barbara Schw ab Immunizations Immunization Date Immunization Notes Care Provider [facility] 02-21-2017 influenza virus vaccine, unspecified formulation Barbara Madelin [facility] 05-06-2015 influenza virus vaccine, unspecified formulation Barbara Madelin [facility] Payers Date Payer Category Payer Medicaid [id number] 2022 Medicaid [id number] 1985 Unknown [id number] 2.16.84 [id number] 1984 Unknown [id number] 2.16.8 [id number] 1984 Unknown [id number] 2.16.8 [id number] 1984 Unknown [id number] 2.16.8 [id number] 1984 Unknown [id number] 2.16.8 [id number] 1984 Unknown [id number] 2.16.8 [id number] 1984 Unknown [id number] 2.16.8 [id number] 1984 Unknown [id number] 2.16.8 [id number] 1984 Unknown [id number] 2.16.8 [id number] 1984 Unknown [id number] 2.16.8 [id number] 1984 Unknown [id number] 2.16.8 [id number] 1959 Unknown [id number] Social History Date Type Detail Facility Start: 07-01-2023 Tobacco smoking status Ex-smoker (neptali saabreba) [facility] Comment on above: quit 8 years ago Sex Assigned At Female [facility] Sexual Orientation [facility] Sex Female (finding) [facility] Clinical Note 01-26-2024 Note Date & Type Note Facility 01-26-2024 Note Education Materials Infectious Disease Cellulitis, Adult Cellulitis is a skin infection. The infected area is often warm, red, swollen, and sore. It occurs most often on the legs, feet, and toes, but can happen on any part of the body. This condition can be life-threatening without treatment. It is very important to get treated right away. What are the causes? This condition is caused by bacteria. The bacteria enter through a break in the skin, such as: ? A cut. ? A burn. ? A bug bite. ? An animal bite. ? An open sore. ? A crack. What increases the risk? ? Having a weak body's defense system (immune system). ? Being older than 60 years old. ? Having a blood sugar problem (diabetes). ? Having a long-term liver disease (cirrhosis) or kidney disease. ? Being very overweight (obese). ? Having a skin problem, such as: ? An itchy rash. ? A rash caused by a fungus. ? A rash with blisters. ? Slow movement of blood in the veins (venous stasis). ? Fluid buildup below the skin (edema). This condition is more likely to occur in people who: ? Have open cuts, bolton, bites, or scrapes on the skin. ? Have been treated with high-energy rays (radiation). ? Use IV drugs. What are the signs or symptoms? ? Skin that: ? Looks red or purple, or slightly darker than your usual skin color. ? Has streaks. ? Has spots. ? Is swollen. ? Is sore or painful when you touch it. ? Is warm. ? A fever. ? Chills. ? Blisters. ? Tiredness (fatigue). How is this treated? ? Medicines to treat infections or allergies. ? Rest. ? Placing cold or warm cloths on the skin. ? Staying in the hospital, if the condition is very bad. You may need medicines through an IV. Follow these instructions at home: Medicines ? Take [id number] and prescription medicines only as told by your doctor. ? If you were prescribed antibiotics, take them as told by your doctor. Do not stop using them even if you start to feel better. General instructions ? Drink enough fluid to keep your pee (urine) pale yellow. ? Do not touch or rub the infected area. ? Raise (elevate) the infected area above the level of your heart while you are sitting or lying down. ? Return to your normal activities when your doctor says that it is safe. ? Place cold or warm cloths on the area as told by your doctor. ? Keep all follow-up visits. Your doctor will need to make sure that a more serious infection is not developing. Contact a doctor if: ? You have a fever. ? You do not start to get better after 1?2 days of treatment. ? Your bone or joint under the infected area starts to hurt after the skin has healed. ? Your infection comes back in the same area or another area. Signs of this may include: ? You have a swollen bump in the area. ? Your red area gets larger, turns dark in color, or hurts more. ? You have more fluid coming from the wound. ? Pus or a bad smell develops in your infected area. ? You have more pain. ? You feel sick and have muscle aches and weakness. ? You develop vomiting or watery poop that will not go away. Get help right away if: ? You see red streaks coming from the area. ? You notice the skin turns purple or black and falls off. These symptoms may be an emergency. Get help right away. Call 911. ? Do not wait to see if the symptoms will go away. ? Do not drive yourself to the hospital. This information is not intended to replace advice given to you by your health care provider. Make sure you discuss any questions you have with your health care provider. Document Revised: 12/21/2022 Document Reviewed: 12/21/2022 [employer] Patient Education ? 2023 [employer] [facility] Clinical Note 01-22-2024 Note Date & Type Note Facility 01-22-2024 Note Education Materials Cardiovascular Hypertension, Adult Blood pressure noted to be 182/102 Your blood pressure was noted to be elevated here in the emergency room. Monitor your blood pressure and follow-up with your primary care physician to review those readings. Return to the emergency department for any worsening symptoms. Hypertension is another name for high blood pressure. High blood pressure forces your heart to work harder to pump blood. This can cause problems over time. There are two numbers in a blood pressure reading. There is a top number (systolic) over a bottom number (diastolic). It is best to have a blood pressure that is below 120/80. What are the causes? The cause of this condition is not known. Some other conditions can lead to high blood pressure. What increases the risk? Some lifestyle factors can make you more likely to develop high blood pressure: ? Smoking. ? Not getting enough exercise or physical activity. ? Being overweight. ? Having too much fat, sugar, calories, or salt (sodium) in your diet. ? Drinking too much alcohol. Other risk factors include: ? Having any of these conditions: ? Heart disease. ? Diabetes. ? High cholesterol. ? Kidney disease. ? Obstructive sleep apnea. ? Having a family history of high blood pressure and high cholesterol. ? Age. The risk increases with age. ? Stress. What are the signs or symptoms? High blood pressure may not cause symptoms. Very high blood pressure (hypertensive crisis) may cause: ? Headache. ? Fast or uneven heartbeats (palpitations). ? Shortness of breath. ? Nosebleed. ? Vomiting or feeling like you may vomit (nauseous). ? Changes in how you see. ? Very bad chest pain. ? Feeling dizzy. ? Seizures. How is this treated? ? This condition is treated by making healthy lifestyle changes, such as: ? Eating healthy foods. ? Exercising more. ? Drinking less alcohol. ? Your doctor may prescribe medicine if lifestyle changes do not help enough and if: ? Your top number is above 130. ? Your bottom number is above 80. ? Your personal target blood pressure may vary. Follow these instructions at home: Eating and drinking ? If told, follow the DASH eating plan. To follow this plan: ? Fill one half of your plate at each meal with fruits and vegetables. ? Fill one fourth of your plate at each meal with whole grains. Whole grains include whole-wheat pasta, brown rice, and whole-grain bread. ? Eat or drink low-fat dairy products, such as skim milk or low-fat yogurt. ? Fill one fourth of your plate at each meal with low-fat (lean) proteins. Low-fat proteins include fish, chicken without skin, eggs, beans, and tofu. ? Avoid fatty meat, cured and processed meat, or chicken with skin. ? Avoid pre-made or processed food. ? Limit the amount of salt in your diet to less than 1,500 mg each day. ? Do not drink alcohol if: ? Your doctor tells you not to drink. ? You are , may be , or are planning to become . ? If you drink alcohol: ? Limit how much you have to: ? 0?1 drink a day for women. ? 0?2 drinks a day for men. ? Know how much alcohol is in your drink. In the [place] one drink equals one 12 oz bottle of beer (355 mL), one 5 oz glass of wine (148 mL), or one 1? oz glass of hard liquor (44 mL). Lifestyle ? Work with your doctor to stay at a healthy weight or to lose weight. Ask your doctor what the best weight is for you. ? Get at least 30 minutes of exercise that causes your heart to beat faster (aerobic exercise) most days of the week. This may include walking, swimming, or biking. ? Get at least 30 minutes of exercise that strengthens your muscles (resistance exercise) at least 3 days a week. This may include lifting weights or doing Pilates. ? Do not smoke or use any products that contain nicotine or tobacco. If you need help quitting, ask your doctor. ? Check your blood pressure at home as told by your doctor. ? Keep all follow-up visits. Medicines ? Take jwji-wjz-bhhhkal and prescription medicines only as told by your doctor. Follow directions carefully. ? Do not skip doses of blood pressure medicine. The medicine does not work as well if you skip doses. Skipping doses also puts you at risk for problems. ? Ask your doctor about side effects or reactions to medicines that you should watch for. Contact a doctor if: ? You think you are having a reaction to the medicine you are taking. ? You have headaches that keep coming back. ? You feel dizzy. ? You have swelling in your ankles. ? You have trouble with your vision. Get help right away if: ? You get a very bad headache. ? You start to feel mixed up (confused). ? You feel weak or numb. ? You feel faint. ? You have very bad pain in your: ? Chest. ? Belly (abdomen). ? You vomit more than once. ? You have trouble breathing. These symptoms (more content not included)... [facility] Evaluation + Plan note Note Date & Type Note Facility Evaluation + Plan note Future Appointments Appointment Date:07/09/2024 01:40:00 PM Scheduled Provider:Barbara Troncoso Location:[facility] ([facility] Appointment Type:[facility] Hospital course Narrative Note Date & Type Note Facility Hospital course Narrative No data available for this section [facility] Hospital Discharge instructions Note Date & Type Note Facility Hospital Discharge instructions No data available for this section [facility] Progress note Note Date & Type Note Facility Progress note No data available for this section [facility] Summary Purpose Family History No Family History Records FoundNo Family History Records Found No data available for this section No data available for this section No Family History Records FoundNo Family History [...] ized section and content) DATE CREATED AUTHOR 04/13/2022 [facility] DATE CREATED AUTHOR AUTHOR'S ORGANIZ ATION 06/07/2024 [facility] DATE CREATED AUTHOR AUTHOR'S ORGANIZ ATION [facility]/17/2024 [facility] DATE CREATED AUTHOR AUTHOR'S ORGANIZ ATION 08/18/2024 [facility] DATE CREATED AUTHOR AUTHOR'S ORGANIZ ATION 10/13/2024 [facility] Patient Care team informatio n (unrecognized section and content) Personnel Name: MadelinBarbara Patel Address: Address: [address] [place] [address]- Personnel Name: Madelin JALYNEmilydi Petey Address: [address] [place] [address]- [employer]: FOR RECORDS PERTAINING TO PATIENTS WHO ARE [...] BE BASED ON THE PRIMARY CLINICAL RECORDS. [facility] [employer] [facility]. provides no warranty or guarantee of the accuracy or completeness of information in this document.
--- OUTSIDE RECORDS SUMMARY | 2024-10-16 06:01 | XMS_ITS | Patient Health Record ---
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 Name Role Phone Kody Montes De Oca Primary Care Provider [phone] Allergies Allergen (clinical drug ingredient) Drug/Non Drug Allergy documented on EMR Reaction Allergy Type Onset Date Status naproxen Naproxen blister Drug Allergy Active Reason For Referral No Information Medications Medication SIG (Take, Route, Frequency, Duration) Notes Start Date End Date Status Metoprolol Tartrate 25 MG 1 tablet with food Orally Twice a day for 30 days Active Gabapentin 400 mg TAKE ONE CAPSULE BY MOUTH TWICE A DAY for 90 days OAARS REVIEWED ON 03/14/23 Active Lisinopril-hydroCHLORO thiazide 20-12.5 MG 1 tablet Orally Once a day for 30 days 07/21/2022 Active Levothyroxine Sodium 150 MCG 1 tablet in the morning on an empty stomach Orally Once a day for 30 days Active Albuterol Sulfate HFA 108 (90 Base) MCG/ACT 2 puff as needed Inhalation every 4 hrs Active busPIRone HCl 15 MG 2 tablets in AM and 1 Tablet in PM Orally daily for 7 days take 2 tablets in AM, take 1 tablet in PM TOTAL 3 TABLETS PER DAY Active Suboxone 8-2 MG 1 film under the tongue and allow to dissolve Sublingual Two times a Week Active Venlafaxine HCl ER 75 MG 1 capsule with food Orally twice daily for 7 days Active Social History Tobacco Use: Social History Observation Description Date Details (start date - stop date) Former Smoker NA - 05/09/2014 Sex Assigned At : Social History Observation Description Sex Assigned At Female Household Question Answer Notes Number of adults in household: 1 Number of children in household: 2 Tobacco Use/Smoking Question Answer Notes Tobacco use: former smoker When did you stop smoking? 05/09/2014 Problems Problem Type SNOMED Code ICD Code Onset Dates Problem Status W/U Status Risk Notes Problem 23094928703174 Morbid (severe) obesity due to excess calories (E66.01) Active confirmed Problem 965556792 Mild intermitten t asthma without complication (J45.20) Active confirmed Problem 033231059 Depression with anxiety (F41.8) Active confirmed Problem 459245579 Acquired hypothyroidism (E03.9) Active confirmed -ordered labs, f/u in 4 weeks Problem 340056275 Body mass index [BMI] 40.0-44.9, adult (Z68.41) Active confirmed Problem 51658617 Primary hypertension (I10) Active confirmed -Pt counseled on DASH diet and incresed physical activities -started on Lisinopril- HCTZ and ordered labs, f/u in 4 weeks Plan Of Treatment No Information Insurance Providers Payer Name Payer Address Payer Phone Subscriber Number Group Number Insured Name Patient Relationship to Insured Coverage Start Date Coverage End Date [facility] [address] [place] [address] [phone] [id number] [facility] Barbara Rai Self - patient is the insured 3 Medicaid [facility] [place] [facility] [address] [place] [address] [id number] Barbara Rai Self - patient is the insured 3 Medical (General) History Surgical History Surgery Date(Month/Year) gallbladder and tubal left ankle
--- OUTSIDE RECORDS SUMMARY | 2024-10-16 06:01 | XMS_ITS | Patient Health Record ---
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 Role Phone Bette Fuentes Primary Care Provider Sai Liriano [phone] Allergies Allergen (clinical drug ingredient) Drug/Non Drug Allergy documented on EMR Reaction Allergy Type Onset Date Status Darvocet-N 100 Unknown Drug Allergy Ac tive naproxen Naprosyn Unknown Drug Allergy Active codeine Codeine Unknown Drug Allergy Active Reason For Referral No Information Medications Medication SIG (Take, Route, Frequency, Duration) Notes Start Date End Date Status Albuterol Sulfate HFA 108 (90 Base) MCG/ACT 2 puffs as needed Inhalation every 4 hrs for 30 days 12/22/2011 Active Problems Problem Type SNOMED Code ICD Code Onset Dates Problem Status W/U Status Risk Notes Problem Asthma without status asthmaticus (70122547) Asthma, unspecified, unspecified status (493.90) Active confirmed Low Plan Of Treatment No Information Insurance Providers Payer Name Payer Address Payer Phone Subscriber Number Group Number Insured Name Patient Relationship to Insured Coverage Start Date Coverage End Date [employer] [address] [place] [address] [id number] [place] Self - patient is the insured 2 [employer] after [employer] [address] [place] [address] [id number] ELLYN CUEVAS Self - patient is the insured 2 Medical (General) History Medical History History ICD Code left ankle tendon injury ASTHMA Surgical History Surgery Date(Month/Year) left ankle torn tendon
[2024-10-16 06:03] LABS: Anion Gap 12.7; BUN Creatinine Ratio 11.9; Calcium 8.7 mg/dL (8.5-10.1); Carbon Dioxide 30.2 mmol/L (21.0-32.0); Chloride 100 mmol/L (98-107); Estimated GFR (African America 57 (>=60 mL/min/1.73m^2); Estimated GFR (Non-African Ame 47 (>=60 mL/min/1.73m^2); Glucose 204 mg/dL (74-106); Magnesium 1.9 mg/dL (1.8-2.4); Potassium 3.9 mmol/L (3.5-5.1); Sodium 139 mmol/L (136-145)
--- NOTE | 2024-10-16 08:04 | PM.HP ---
HPI H&P: HPI History of Present Illness Chief complaint: COUGH CONJESTION DIZZINESS EARACHE, hypoxia, Narrative: Patient is a 39 y.o female with past medical history of asthma, HTN, hypothyroidism, iron deficiency anemia, anxiety and depression, currently on Suboxone therapy who presented to the ER yesterday with shortness of breath, nasal congestion, dizziness and earache. Symptoms have been going on about 1 week, and her son has similar symptoms. She denies fevers or chills but coughing and yesterday unable to catch her breath so she presented to the ER. Upon presentation, patient's pulse ox was upper 80's so 2L NC was placed on patient. She also had a respiratory rate as high as 28, temp 100.0. HR 138. WBC's 9.2, hb 11.4, normal D-dimer 0.35, cr 1.26, Mag 1.9 and trop normal. Chest X-ray showed no acute process. Patient was given Solumedrol and breathing treatment and was not able to wean off oxygen so was admitted for further plan of care. This morning patient is sitting in bed and reports some improvement in her breathing overnight. She is still having bilateral ear pain, coughing, and shortness of breath. She is ex smoker and quit 8 years ago. She uses albuterol at home and has been using recently without benefit. Opioid HPI Opioid Management Most Recent Pain and Opioid Data: Last Pain Scale 4 10/15/24, 21:27 Last Pain Assessment 10/15/24, 19:43 Last MAR Pain Assessment 10/15/24, 21:27 Last ORT Total Score 20 10/15/24, 18:25 Last ORT Risk Category High Risk 10/15/24, 18:25 Review of Systems ROS Narrative ROS: a complete review of systems were reviewed with patient and are positive as below or listed in History of Chief Complaint. General: fever, chills, night sweats Head: no headache, trauma, visual changes, nausea or vomiting Skin: no reported rashes, itching or sores Eyes: no blurriness of vision Ears: no reported hearing loss, vertigo, but having bilateral ear pain Throat: no sore throat, hoarseness, swelling of neck, or tongue pain Heart: no chest pain Lungs: shortness of breath and cough GI: no diarrhea or vomiting/nausea Urinary: no urinary urgency, frequency or pain Neuro: no numbness or tingling HEM: no bleeding issues or bruising ENDO: thyroid problems Psych: anxiety and depression PFSH [facility] Medical History (Updated 10/16/24 @ 11:00 by Lona See DO) History of drug abuse in remission ?F19.11 - Other psychoactive substance abuse, in remission (ICD-10) Hypothyroidism ?E03.9 - Hypothyroidism, unspecified (ICD-10) Hypertension ?I10 - Essential (primary) hypertension (ICD-10) Depression ?F32.A - Depression, unspecified (ICD-10) deliv due to previous difficult deliv, deliv, curr hospitaliz ?O82 - Encounter for delivery without indication (ICD-10) ?Z87.59 - Personal history of other complications of , childbirth and the puerperium (ICD-10) Anxiety and depression ?F41.9 - Anxiety disorder, unspecified (ICD-10) ?F32.A - Depression, unspecified (ICD-10) Asthma ?J45.909 - Unspecified asthma, uncomplicated (ICD-10) Surgical History History of delivery ?Z98.891 - History of uterine scar from previous surgery (ICD-10) History of ankle surgery ?Z98.890 - Other specified postprocedural states (ICD-10) History of cholecystectomy ?Z90.49 - Acquired absence of other specified parts of digestive tract (ICD-10) Family History Grandmother Family history of stroke Family history of hypertension Family history of cancer Grandfather Family history of myocardial infarction Aunt Family history of diabetes mellitus Family history of CHF (congestive heart failure) Uncle Family history of diabetes mellitus Mother Family history of COPD (chronic obstructive pulmonary disease) Father Family history of COPD (chronic obstructive pulmonary disease) Social History Within the past year, how often did you have a drink containing alcohol: never Score interpretation: A score less than 3 is consistent with normal alcohol consumption. Smoking status: Former smoker Non-prescribed substance use: former substance user and opiods/painkillers Non-prescribed substance use details: Heroin Highest level of school completed/degree received: some college, no degree Little interest or pleasure in doing things: not at all Feeling down, depressed, or hopeless: not at all Meds Home Medications and Allergies Home Medications ?Medication ?Instructions ?Recorded ?Confirmed ?Type metoprolol tartrate 25 mg tablet 25 mg PO BID 14 days #28 tabs 06/28/23 10/15/24 Rx buprenorphine 8 mg-naloxone 2 mg 2 film buccal Q24H 10/20/23 10/15/24 History sublingual film lisinopril 20 mg tablet 20 mg PO DAILY 10/20/23 10/15/24 History albuterol sulfate 90 mcg/actuation 2 inh inhalation Q6H PRN shortness 10/15/24 10/15/24 History aerosol inhaler of breath or wheezing buspirone 15 mg tablet 15 mg PO TID 10/15/24 10/15/24 History docusate sodium 100 mg capsule 200 mg PO BID 10/15/24 10/15/24 History ergocalciferol (vitamin D2) 1,250 1,250 mcg PO .twice per week 10/15/24 10/15/24 History mcg (50,000 unit) capsule ferrous sulfate 325 mg (65 mg 325 mg PO DAILY 10/15/24 10/15/24 History iron) tablet (FeroSul) levothyroxine 175 mcg tablet 175 mcg PO .QD 10/15/24 10/15/24 History venlafaxine 75 mg capsule,extended 150 mg PO .QD 10/15/24 10/15/24 History release 24 hr Allergies Allergy/AdvReac Type Severity Reaction Status Date / Time naproxen AdvReac Intermediate Blister Verified 10/15/24 15:04 Exam Narrative Exam Narrative: General: Patient is alert, and oriented to person, place and time some conversational dyspnea Skin: patient has multiple scars over both arms Head: atraumatic, acephalic Eyes: PERRLA, no nystagmus present, conjunctiva clear, no scleral icterus Ears: erythematous, bulging Tympanic Membrane bilaterally, normal gross auditory acuity Nose: symmetric, no discharge, no maxillary or frontal sinus tenderness Mouth/Throat: no erythema, exudate, or tonsillar enlargement, normal dentition Neck: no masses palpated, normal thyroid Heart: Normal rate and rhythm, no murmurs/rubs/gallops Lungs: no audible wheezes, diminished breath sounds bilateral bases Abdomen: Normal audible bowel sounds, no distension, No palpable masses, no organomegaly, no rebound/guarding/ or rigidity Musculoskeletal: no swelling bilateral lower extremities Neuro: CN II-X grossly intact Constitutional Vital Signs, click to edit/add: Last Vital Signs Temp 97.7 F 10/16/24 03:31 Pulse 71 10/16/24 07:57 Resp 18 10/16/24 04:45 BP 99/62 10/16/24 03:31 Pulse Ox 91 L 10/16/24 05:02 O2 Del Method Nasal Cannula 10/16/24 05:02 O2 Flow Rate 1 10/16/24 05:02 Results Labs Labs: Short CBC 10/15/24 10/16/24 Range/Units 16:46 05:19 WBC 9.2 9.7 (4.0-11.0) 10^3/uL Hgb 11.2 L 11.4 L (12.0-16.0) g/dL Hct 35.5 L 36.0 (36.0-48.0) % Plt Count 302 336 (150-450) 10^3/uL BMP 10/15/24 10/16/24 16:46 05:19 Sodium 139 139 Potassium 3.2 L 3.9 Chloride 99 100 Carbon Dioxide 33.2 H 30.2 BUN 11.0 15.0 Creatinine 0.99 1.26 H Glucose 133 H 204 H Calcium 9.0 8.7 Liver Function 10/15/24 Range/Units 16:46 Total Bilirubin 0.2 (0.2-1.0) mg/dL AST 24 (15-37) U/L ALT 26 (14-59) U/L Alkaline Phosphatase 94 (46-116) U/L Albumin 3.1 L (3.4-5.0) g/dL Assessment and Plan Assessment and Plan (1) Asthma exacerbation: Assessment and Plan: continued scheduled duonebs, as needed albuterol, IV Solumedrol and Azithromycin IV. Normal Chest X-ray and d-dimer and trop. Still requiring 1-2 of oxygen. Qualifiers: Asthma persistence: unspecified Asthma severity: unspecified severity Qualified Code(s): J45.901 - Unspecified asthma with (acute) exacerbation (2) Bilateral otitis media with effusion: Assessment and Plan: add IV Rocephin and otic Ciprodex (3) Bronchitis: Assessment and Plan: continue as needed bromfed and Azithromycin (4) Hypertension: Assessment and Plan: continue lisinopril, metoprolol Qualifiers: Hypertension type: primary hypertension Qualified Code(s): I10 - Essential (primary) hypertension (5) Anxiety and depression: Assessment and Plan: continue venlafaxine, buspar (6) Hypothyroidism: Assessment and Plan: continue levothyroxine Qualifiers: Hypothyroidism type: unspecified Qualified Code(s): E03.9 - Hypothyroidism, unspecified (7) History of drug abuse in remission: Assessment and Plan: continue Suboxone Plan Patient is a full code continue lovenox for DVT prophylaxis Patient is inpatient status and expected to spend 2-3 days for treatment of her severe asthma exacerbation.
[2024-10-16] MEDS: METOPROLOL TARTRATE 25 MG TABLET PO (09:09)
[2024-10-16] MEDS: LISINOPRIL 20 MG TABLET PO (09:09)
[2024-10-16] MEDS: VENLAFAXINE HCL ER 75 MG CAPSULE 150 MG PO (09:09)
[2024-10-16] MEDS: DOCUSATE SODIUM 100 MG CAPSULE 200 MG PO (09:09)
[2024-10-16] MEDS: FERROUS SULFATE 325 MG TABLET PO (09:09)
[2024-10-16] MEDS: LEVOTHYROXINE 150 MCG 175 EACH PO (09:56)
[2024-10-16] MEDS: NON-FORMULARY 1 EACH (Buprenorphine-Naloxone 8-2 mg film) 2 EACH MISC (09:56)
--- NOTE | 2024-10-16 10:39 | CM.NOTE ---
Rounds made with Dr. See. Dr. See reviews plan of care and answers all questions. Will add Augmentin for ear infection and ear gtts for cyst in left ear. Encouraged to ambulate with nursing. Verbalizes understanding.
[2024-10-16] MEDS: BUDESONIDE 0.5 MG/2 ML AMPULE NEB IH (12:04)
[2024-10-16] MEDS: 0.9 % SODIUM CHLORIDE 250 ML 10 ML IV (12:19)
[2024-10-16] MEDS: CEFTRIAXONE 1,000 MG in 0.9 % SODIUM CHLORIDE 50 ML 100 MG IV (12:19)
[2024-10-16] MEDS: CIPROFLOXACIN HCL/DEXAMETH 0.3%/0.1% OTIC SUSP 150 DROP/7.5 ML BOTTLE EAR-BOTH (12:19)
[2024-10-16] MEDS: ACETAMINOPHEN 500 MG TABLET 1000 MG PO (14:40)
--- NOTE | 2024-10-16 16:30 | RESP.RT ---
patient placed on RA Spo2 97% on 1L NC
--- NOTE | 2024-10-17 13:44 | PM.DS1 ---
DS: Providers Provider Date of admission: 10/15/24 17:58 Primary care physician: DARIO CAIN Attending physician on admission: Lona See Discharging clinician: Lona See DS: Diagnosis Discharge Diagnosis (1) Asthma exacerbation: Qualifiers: Asthma persistence: unspecified Asthma severity: unspecified severity Qualified Code(s): J45.901 - Unspecified asthma with (acute) exacerbation (2) Bilateral otitis media with effusion: (3) Bronchitis: (4) Hypertension: Qualifiers: Hypertension type: primary hypertension Qualified Code(s): I10 - Essential (primary) hypertension (5) Anxiety and depression: (6) Hypothyroidism: Qualifiers: Hypothyroidism type: unspecified Qualified Code(s): E03.9 - Hypothyroidism, unspecified (7) History of drug abuse in remission: DS: Summary Hospital Course Hospital Course: Patient left AMA last night. I called today to speak with patient and she reported she had to leave AMA because her sister and kids were visiting and she had no where for her kids to go and she did not have a ride today. She plans to follow up with her PCP DUSTIN. I also told her she may return to the ER if symptoms worsen. She was appreciative of my call. Status at Discharge Functional status at discharge: independent ambulation Overall status at discharge: patient is not back to baseline Time Spent with Patient Time attestation: Total time spent providing and/or coordinating discharge services: Exam Narrative Exam Narrative: Patient left AMA Constitutional Vital Signs, click to edit/add: Last Vital Signs Temp 98.0 F 10/16/24 19:35 Pulse 106 H 10/16/24 19:58 Resp 20 10/16/24 19:35 BP 107/67 10/16/24 19:35 Pulse Ox 90 L 10/16/24 19:35 O2 Del Method Room Air 10/16/24 19:35 O2 Flow Rate 1 10/16/24 16:28 Discharge Plan Discharge Disposition: Left Against Medical Advice Condition: Fair Discharge Date/Time: 10/16/24 21:34
--- NOTE | 2024-10-18 23:50 | PC.NURSE ---
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 Patient states I'm supposed to get discharged tomorrow anyway.
--- OUTSIDE RECORDS SUMMARY | 2024-10-21 12:57 | XMS_ITS | CCD ---
Author Organization [facility] Care Team Providers Care Lead Recreation Assistant Name Role Phone HOMERO, DR HOWE Primary Care Unavailable DIONI, DR OTERO Admitting Unavailable HAY, DR OTERO Attending Unavailable MARLENE, DASHAWN SALDANA Consulting Unavailable HAY, DR OTERO Consulting Unavailable TROTTAP March Consulting Unavailable Provider, None Primary Care Unavailable Nhan Dailey Consulting Unavailable Nosair, Morgan Attending Unavailable Nosair, Morgan Admitting Unavailable StaArslan stanton Attending Unavailable StaArslan stanton Admitting Unavailable Provider, None Primary Care Unavailable Provider, None Primary Care Unavailable Nhan Dailey Attending Unavailable Madelin, Barbara Angelo Primary Care Physician [phone] Madelin, YOUTH MINISTER Barbara L Attending Unavailable Madelin, YOUTH MINISTER Barbara L Attending Unavailable Madelin, YOUTH MINISTER Barbara L Attending Unavailable Madelin, YOUTH MINISTER Barbara L Admitting Unavailable Madelin, YOUTH MINISTER Barbara L Attending Unavailable Madelin, YOUTH MINISTER Barbara L Attending Unavailable Madelin, YOUTH MINISTER Barbara L Attending Unavailable Madelin, Barbara L Attending Unavailable Madelin, Barbara L Attending Unavailable TONY BUCIO Attending Unavailable Madelin, Barbara L Attending Unavailable Madelin, Barbara L Attending Unavailable Madelin, Barbara L Admitting Unavailable Madelin, Barbara L Admitting Unavailable Allergies Allergy Classification Reported Allergen(s) Allergy Type Date of Onset Reaction(s) Facility (1 source) Codeine Drug Allergy [address] [facility] Repository (1 source) Naproxen Drug Allergy [address] [facility] Repository (1 source) Darvocet-N 100 Drug allergy (disorder) [address] [facility] Repository (1 source) Doxycycline; Translations: [doxycycline] Drug Allergy [facility] Repository (5 sources) Naproxen; Translations: [naproxen] Drug Allergy Swelling (finding) [facility] Repository Medications Current Medications Medication Drug Class(es) Dates Sig (Normalized) Sig (Original) busPIRone hydrochloride 15 mg oral tablet (1 source) Start: 01-06-2024 take 1 tablet by mouth three times daily busPIRone 15 mg Tab 15 mg = 1 tab(s), Oral, TID, # 270 tab(s), Refills(s) 4, Pharmacy: [id number], 165.5, cm, 07/01/23 13:32:00 EST, Height/Length Dosing, 149.8, kg, 07/01/23 13:32:00 EST, Weight Dosing Start Date: 01/06/24 Status: Ordered levothyroxine sodium 0.15 mg oral tablet (1 source) l-Thyroxine Start: 01-06-2024 take 1 tablet by mouth once daily levothyroxine 150 mcg (0.15 mg) Tab 150 mcg = 1 tab(s), Oral, Daily, 0 Refill(s), # 90 tab(s), Refills(s) 4, Pharmacy: [id number], 165.5, cm, 07/01/23 13:32:00 EST, Height/Length Dosing, 149.8, kg, 07/01/23 13:32:00 EST, Weight Dosing Start Date: 01/06/24 Status: Ordered lisinopril 20 mg oral tablet (1 source) Angiotensin Converting Enzyme Inhibitor Start: 01-06-2024 take 1 tablet by mouth once daily lisinopril 20 mg Tab 20 mg = 1 tab(s), Oral, Daily, # 90 tab(s), Refills(s) 4, Pharmacy: [id number], 165.5, cm, 07/01/23 13:32:00 EST, Height/Length [...] cap(s), Refills(s) 0, Pharmacy: [facility], 165.5, cm, 07/01/23 13:32:00 EST, Height/Length Dosing, [...] Test Name Value Interpretation Reference Range Facility Ambulatory Visit Summaryon 0 10-19-2024 Ambulatory Visit Summary Ambulatory Visit Summary ELLYN CUEVAS :1985 Visit Date:10/19/2024 Ambulatory Visit Instructions Your Diagnosis Bronchitis Your Care Team Attending Physician - TONY BUCIO CNP Primary Care Physician - Barbara Troncoso This Is Your Medications [place] [facility] (METOPROLOL TARTRATE 25 MG TABLET) albuterol (Albuterol (Eqv-Ventolin HFA) 90 mcg/inh inhalation aerosol) albuterol (Ventolin HFA 90 mcg/inh Aerosol-Adpt) albuterol (Ventolin HFA 90 mcg/inh Aerosol-Adpt) aripiprazole (Abilify 10 mg Tab) buprenorphine-naloxo ne (buprenorphine-nalox one 8 mg-2 mg sublingual film) buprenorphine-naloxo ne (buprenorphine-nalox one 8 mg-2 mg sublingual film) busPIRone (busPIRone 15 mg Tab) busPIRone (busPIRone 15 mg Tab) cetirizine (cetirizine 10 mg oral capsule) docusate (docusate sodium 100 mg Cap) ergocalciferol (Vitamin D 50,000 intl units (1.25 mg) oral capsule) ergocalciferol (ergocalciferol 50,000 intl units Cap) ferrous sulfate (FeroSul 325 mg oral tablet) ferrous sulfate (ferrous sulfate 325 mg Tab) fluticasone nasal (Flonase 0.05 mg/inh Heiskell) fluticasone nasal (fluticasone Nasal 0.05 mg/inh Welch) gabapentin (gabapentin 400 mg Cap) levothyroxine (levothyroxine 175 mcg (0.175 mg) Tab) levothyroxine (levothyroxine 175 mcg (0.175 mg) Tab) lisinopril (lisinopril 20 mg Tab) lisinopril (lisinopril 20 mg Tab) metoprolol (Metoprolol tartrate 25 mg Tab) ondansetron (ondansetron 4 mg Dis Tab) ondansetron (ondansetron 4 mg Dis Tab) ondansetron (ondansetron 4 mg Dis Tab) venlafaxine (venlafaxine 75 mg Cap-ER) venlafaxine (venlafaxine 75 mg Cap-ER) venlafaxine (venlafaxine 75 mg Cap-ER) Procedures Performed delivery, Cholecystectomy, Surgery. Discharge Vitals Temperature (Temporal Artery) 36.6 ???C Heart Rate (Peripheral) 102 Blood Pressure 140/92 Height 168 cm Height 66 in Weight 150.8 kg Weight 332.457 lb BMI 53.43 What to do next Scheduled Follow-Up Appointments Tuesday 10:00 AM EDT With: Barbara Troncoso Where: [facility] [address] [address]- Medications What How Much When Why Instructions Unchanged albuterol (Albuterol (Eqv-Ventolin HFA) 90 mcg/ inh inhalation aerosol) Unchanged albuterol (Ventolin HFA 90 mcg/ inh Aerosol-Adpt) 2 Puffs Inhalation 4 times a day as needed for for wheezing Unchanged albuterol (Ventolin HFA 90 mcg/ inh Aerosol-Adpt) 18 gm, 0 Refill(s), INHALE 1 PUFF EVERY SIX HOURS NEEDED Unchanged aripiprazole (Abilify 10 mg Tab) 1 Tablets By Mouth Every day Wellness examination Essential hypertension Hypothyroid BMI 50.0-59.9, adult Non-smoker Unchanged buprenorphine-naloxo ne (buprenorphine-nalox one 8 mg-2 mg sublingual film) Unchanged buprenorphine-naloxo ne (buprenorphine-nalox one 8 mg-2 mg sublingual film) 56 EA, 0 Refill(s), dissolve 2 FILMS under the tongue once daily Unchanged busPIRone (busPIRone 15 mg Tab) Unchanged busPIRone (busPIRone 15 mg Tab) 1 Tablets By Mouth 3 times a day Duration: 90 Days Unchanged cetirizine (cetirizine 10 mg oral capsule) 1 Capsules By Mouth Every day as needed for for allergy symptoms Wellness examination Essential hypertension Hypothyroid ELEUTERIO (generalized anxiety disorder) Moderate recurrent major depression Fluid level behind tympanic membrane of both ears BMI 50.0-59.9, adult Non-smoker Unchanged docusate (docusate sodium 100 mg Cap) 1 Capsules By Mouth 2 times a day as needed for for constipation Unchanged ergocalciferol (ergocalciferol 50,000 intl units Cap) Unchanged ergocalciferol (Vitamin D 50,000 intl units (1.25 mg) oral capsule) 1 Capsules By Mouth 2 times a week Wellness examination Essential hypertension Hypothyroid ELEUTERIO (generalized anxiety disorder) Moderate recurrent major depression Fluid level behind tympanic membrane of both ears BMI 50.0-59.9, adult Non-smoker Unchanged ferrous sulfate (FeroSul 325 mg oral tablet) Unchanged ferrous sulfate (ferrous sulfate 325 mg Tab) 1 Tablets By Mouth Every day Wellness examination Essential hypertension Hypothyroid ELEUTERIO (generalized anxiety disorder) Moderate recurrent major depression Fluid level behind tympanic membrane of both ears BMI 50.0-59.9, adult Non-smoker Unchanged fluticasone nasal (Flonase 0.05 mg/ inh Heiskell) 2 Sprays Nasal Inhalation Every day Wellness examination Essential hypertension Hypothyroid ELEUTERIO (generalized anxiety disorder) Moderate recurrent major depression Fluid level behind tympanic membrane of both ears BMI 50.0-59.9, adult Non-smoker each nostril Unchanged fluticasone nasal (fluticasone Nasal 0.05 mg/ inh Welch) Unchanged gabapentin (gabapentin 400 mg Cap) See instructions TAKE ONE CAPSULE BY MOUTH TWICE A DAY 90 DAYS Unchanged levothyroxine (levothyroxine 175 mcg (0.175 mg) Tab) Unchanged levothyroxine (levothyroxine 175 mcg (0.175 mg) Tab) 1 Tablets By Mouth Every (more content not included)... Normal [facility] Family Medicine Office/Clini c Noteon 10-19-2024 Family Medicine Office/Clinic Note Family Medicine Office/Clinic Note Chief Complaint The patient presents with respiratory distress and wheezing. HPI Staff ER followup:due to cough,bronchitis,david ble ear infection. Left AMA. RONAL 08/16 due to HTN, ELEUTERIO, Depression,Hypothyro id, fluid jonathan ears. DUE: Mammo/PAP/Diabetes screening Hospital:[place] Visit date:10/16 Symptoms the patient presented with: cough. Current concerns:currently SOB, Dizziness, Really bad cough, Rt ear pain that is intermittent. was started on O2 in hospital on 2liters then taken off. Pt had to AMA due to children at home. Not using O2 at home. History of Present Illness 39 year old patient of SUNSHINE Casey presents today in f/u for ED visit where the patient left AMA and was diagnosed with bronchitis & bilateral OM. She was seen in the emergency room where she underwent a chest X-ray, EKG, and lab tests, which led to a diagnosis of an upper respiratory infection and an acute exacerbation of her chronic asthma. She was advised to stay for IV steroid therapy but left after one night due to personal obligations. The patient has a history of asthma diagnosed during her teenage years, and she has been using albuterol as a rescue inhaler. She has not been on maintenance therapy and reports increased dependency on the inhaler as she ages. Her pulse oximetry reading was 96% during the visit, indicating adequate oxygenation. Review of Systems PHQ Score Initial Depression Screen Score: 6 SCORE - Respiratory: Reports dyspnea, wheezing. Denies cough, hemoptysis. - ENT: Reports redness in nasal cavity and throat, fluid in ear canal. Denies sore throat, nasal discharge. Physical Exam Vitals & Measurements T: 36.6 ???C(Temporal Artery) HR: 102(Peripheral) BP: 140/92 SpO2: 96% HT: 66 in HT: 168 cm WT: 332.457 lb WT: 150.8 kg BMI: 53.43 General: alert, no acute distress Skin: warm, dry Head: no trauma, normocephalic Neck: Trachea midline, no adenopathy, no tenderness Eye: normal conjunctiva, sclera clear ENMT: Redness in nasal cavity and throat, fluid in ear canal. Cardiovascular: regular rate and rhythm, normal peripheral perfusion Respiratory: Lungs expiratory wheezes, respirations non labored Neurological: oriented x 4, LOC appropriate for age speech normal Assessment/Plan 1. Bronchitis (J40: Bronchitis, not specified as acute or chronic) - Reviewed discharge summary from [facility] - Reviewed EKG, CXR, & laboratory test results from [facility] - Prescribed Medrol Dosepak for 5 days to manage inflammation. - Prescribed amoxicillin 500 mg twice daily for 10 days to address potential bacterial infection. - F/U in 2 weeks with pcp Total time spent preparing the chart, conducting of the encounter with the patient and family and time spent documenting, reviewing, and ordering tests was 30 minutes. Ordered: amoxicillin, 500 mg = 1 cap(s), Oral, q12hr, # 20 cap(s), Refills(s) 0, Pharmacy: [facility], 168, cm, 10/19/24 10:45:00 EDT, Height/Length Dosing, 150.8, kg, 10/19/24 10:45:00 EDT, Weight Dosing methylPREDNISolone, = 1 packet(s), Oral, As Directed, as directed on package labeling, X 6 day(s), # 21 tab(s), Refills(s) 0, Pharmacy: [facility], 168, cm, 10/19/24 10:45:00 EDT, Height/Length Dosing, 150.8, kg, 10/19/24 10:45:00 EDT, Weight Dosing 2. Mild intermittent asthma (J45.20: Mild intermittent asthma, uncomplicated) - Recommended follow-up with primary care provider for asthma management and potential maintenance therapy. - Discussed the importance of maintenance therapy to prevent exacerbations. - F/U in 2 weeks with pcp Follow-up With When Contact Information Barbara Yusuf Within [address] [place] [id number]- [facility] (1) Additional Instructions: Asthma Patient Education Acute Bronchitis, Adult, Yysl-yo-Nuat Problem List/Past Medical History Ongoing Acquired hypothyroidism Anxiety Depression Essential hypertension Fluid level behind tympanic membrane of both ears ELEUTERIO (generalized anxiety disorder) Hypothyroid Mild intermittent asthma Mixed anxiety and depressive disorder Moderate recurrent major depression Morbid obesity with BMI of 50.0-59.9, adult Severe obesity Shortness of breath on exertion Wellness examination Historical ADHD Restless leg syndrome Procedure/Surgical History delivery, Cholecystectomy, Surgery. Medications Abilify 10 mg Tab, 10 mg= 1 tab(s), Oral, Daily Albuterol (Eqv-Ventolin HFA) 90 mcg/inh inhalation aerosol amoxicillin 500 mg Cap, 500 mg= 1 cap(s), Oral, q12hr buprenorphine-naloxo ne 8 mg-2 mg sublingual film busPIRone 15 mg Tab, 15 mg= 1 tab(s), Oral, TID, 3 refills cetirizine 10 mg oral capsule, 10 mg= 1 cap(s), Oral, Daily, PRN docusate sodium 100 mg Cap, 100 mg= 1 cap(s), Oral, BID, PRN ferrous sulfate 325 mg Tab, 325 mg= 1 tab(s), Oral, Daily Flonase 0.05 mg/inh Heiskell, 2 spray(s), Nasal, Daily gabapentin 400 mg Cap, See Instructions, 1 (more content not included)... Normal [facility] Comment on above: Result Comment: Elec tronically Signed By: TONY BUCIO CNP\bernardo\Date and Time Signed: 10/19/24 11:15 EDT CBC w/ Auto Diffon 5 Anisocytosis Ql (Bld) PRESENT Invalid Interpretation Code [facility] Comment on above: Performed By: #### 2 [id number] #### [facility] [address] [place] [address] Basophils/100 WBC (Bld) 0.7 % Normal 0.0-2.0 [facility] Comment on above: Performed By: #### 2 [id number] #### [facility] [address] [place] [address] Basophils/Leukocytes Auto (Bld) [Pure # fraction] 0.1 E9/L Normal 0.0-0.2 [facility] Comment on above: Performed By: #### 2 [id number] #### [facility] [address] [place] [address] Eosinophils (Bld) [#/Vol] 0.3 E9/L Normal 0.0-0.5 [facility] Comment on above: Performed By: #### 2 [id number] #### [facility] [address] [place] [address] Eosinophils/100 WBC (Bld) 3.3 % Normal 0.0-8.0 [facility] Comment on above: Performed By: #### 2 [id number] #### [facility] [address] [place] [address] Erythrocyte distribution width (RBC) [Ratio] 18.8 % High 10.9-14.2 [facility] Comment on above: Performed By: #### 2 [id number] #### [facility] [address] [place] [address] Hematocrit (Bld) [Volume fraction] 34.0 % Normal 34.0-46.0 [facility] Comment on above: Performed By: #### 2 [id number] #### [facility] [address] [place] [address] Hemoglobin (Bld) [Mass/Vol] 11.0 g/dL Low 12.0-16.0 [facility] Comment on above: Performed By: #### 2 [id number] #### [facility] [address] [place] [address] Lymphocytes (Bld) [#/Vol] 2.8 E9/L Normal 1.0-4.0 [facility] Comment on above: Performed By: #### 2 [id number] #### [facility] [address] [place] [address] Lymphocytes/100 WBC (Bld) 30.3 % Normal 14.0-50.0 [facility] Comment on above: Performed By: #### 2 [id number] #### [facility] [address] [place] [address] MCH (RBC) [Entitic mass] 22.1 pg Low 27.0-34.0 [facility] Comment on above: Performed By: #### 2 [id number] #### [facility] [address] [place] [address] MCHC (RBC) [Mass/Vol] 32.2 g/dL Normal 31.4-36.0 [facility] Comment on above: Performed By: #### 2 [id number] #### [facility] [address] [place] [address] MCV (RBC) [Entitic vol] 68.7 fL Low 80.0-100.0 [facility] Comment on above: Performed By: #### 2 [id number] #### [facility] [address] [place] [address] Microcytes Ql (Bld) PRESENT Invalid Interpretation Code [facility] Comment on above: Performed By: #### 2 [id number] #### [facility] [address] [place] [address] Monocytes (Bld) [#/Vol] 0.4 E9/L Normal 0.2-1.0 [facility] Comment on above: Performed By: #### 2 [id number] #### [facility] [address] [place] [address] Neutrophils (Bld) [#/Vol] 5.7 E9/L Normal 2.0-7.5 [facility] Comment on above: Performed By: #### 2 [id number] #### [facility] [address] [place] [address] Neutrophils/100 WBC (Bld) 61.3 % Normal 36.0-75.0 [facility] Comment on above: Performed By: #### 2 [id number] #### [facility] [address] [place] [address] Ovalocytes LM Ql (Bld) PRESENT Invalid Interpretation Code [facility] Comment on above: Performed By: #### 2 [id number] #### [facility] [address] [place] [address] Platelet 472.0 E9/L Normal 150.0-500.0 [facility] Comment on above: Performed By: #### 2 [id number] #### [facility] [address] [place] [address] Platelet mean volume (Bld) [Entitic vol] 7.3 fL Normal 6.4-10.8 [facility] Comment on above: Performed By: #### 2 [id number] #### [facility] [address] [place] [address] RBC (Bld) [#/Vol] 5.0 E12/L Normal 4.3-5.9 [facility] Comment on above: Performed By: #### 2 [id number] #### [facility] [address] [place] [address] RBC size Nom (Bld) SEE MORPHOLOGY Invalid Interpretation Code [facility] Comment on above: Performed By: #### 2 [id number] #### [facility] [address] [place] [address] WBC corrected for nucl RBC Auto (Bld) [#/Vol] 9.3 E9/L Normal 4.0-11.0 [facility] Comment on above: Performed By: #### 2 [id number] #### [facility] [address] [place] [address] CHEMISTRYOrdered By: SYSTEM SYSTEM on 08-16-2024 25-hydroxyvitamin [...] 08-16-2024 Albumin [Mass/Vol] 3.9 g/dL Normal 3.3-5.0 [facility] Comment on above: Performed By: #### 2 [id number] #### [facility] [address] [place] [address] Albumin/Globulin (S) [Mass conc ratio] 1.0 Low 1.1-2.2 [facility] Comment on above: Performed By: #### 2 [id number] #### [facility] [address] [place] [address] ALP [Catalytic activity/Vol] 95 Int._Unit/L Normal 21-98 [facility] Comment on above: Performed By: #### 2 [id number] #### [facility] [address] [place] [address] ALT No additional P-5'-P [Catalytic activity/Vol] 30 Int._Unit/L Normal 6-46 [facility] Comment on above: Performed By: #### 2 [id number] #### [facility] [address] [place] [address] Anion gap [Moles/Vol] 6 mmol/L Normal 6-16 [facility] Comment on above: Performed By: #### 2 [id number] #### [facility] [address] [place] [address] AST [Catalytic activity/Vol] 25 Int._Unit/L Normal 5-43 [facility] Comment on above: Performed By: #### 2 [id number] #### [facility] [address] [place] [address] Bilirubin [Mass/Vol] 0.4 mg/dL Normal 0.0-1.1 [facility] Comment on above: Performed By: #### 2 [id number] #### [facility] [address] [place] [address] Calcium [Mass/Vol] 8.9 mg/dL Normal 8.9-11.1 [facility] Comment on above: Performed By: #### 2 [id number] #### [facility] [address] [place] [address] Chloride [Moles/Vol] 102 mmol/L Normal 101-111 [facility] Comment on above: Performed By: #### 2 [id number] #### [facility] [address] [place] [address] CO2 [Moles/Vol] 35 mmol/L High 21-31 [facility] Comment on above: Performed By: #### 2 [id number] #### [facility] [address] [place] [address] Creatinine [Mass/Vol] 0.8 mg/dL Normal 0.5-1.3 [facility] Comment on above: Performed By: #### 2 [id number] #### [facility] [address] [place] [address] Globulin (S) [Mass/Vol] 4.0 g/dL Normal 1.4-4.0 [facility] Comment on above: Performed By: #### 2 [id number] #### [facility] [address] [place] [address] Glucose [Mass/Vol] 106 mg/dL Normal 55-199 [facility] Comment on above: Performed By: #### 2 [id number] #### [facility] [address] [place] [address] Potassium [Moles/Vol] 4.5 mmol/L Normal 3.5-5.3 [facility] Comment on above: Performed By: #### 2 [id number] #### [facility] [address] [place] [address] Protein [Mass/Vol] 7.9 g/dL High 6.0-7.8 [facility] Comment on above: Performed By: #### 2 [id number] #### [facility] [address] [place] [address] Sodium [Moles/Vol] 138 mmol/L Normal 135-145 [facility] Comment on above: Performed By: #### 2 [id number] #### [facility] [address] [place] [address] Urea nitrogen [Mass/Vol] 10 mg/dL Normal 5-21 [facility] Comment on above: Performed By: #### 2 [id number] #### [facility] [address] [place] [address] Urea nitrogen/Creatinine [Mass ratio] 12 No Units Normal 10-20 [facility] Comment on above: Performed By: #### 2 [id number] #### [facility] [address] [place] [address] Family Medicine Office/Clini c Noteon 08-16-2024 Family [...] tab(s), Refills(s) 0, Pharmacy: [facility], 165.5, cm, 08/16/24 13:58:00 EDT, Height/Length Dosing, 147.5, kg, 08/16/24 13:58:00 EDT, Weight Dosing cetirizine, 10 mg = 1 cap(s), Oral, Daily, PRN for allergy symptoms, # 90 cap(s), Refills(s) 0, Pharmacy: [facility], 165.5, cm, 08/16/24 13:58:00 EDT, Height/Length Dosing, 147.5, kg, 08/16/24 13:58:00 EDT, Weight Dosing fluticasone nasal, 2 spray(s), Nasal, Daily, 16 gram, Refill(s) 0, each nostril, [facility], 165.5, cm, 08/16/24 13:58:00 EDT, Height/Length Dosing, 147.5, kg, 08/16/24 13:58:00 EDT, Weight Dosing CBC w/ Auto Diff Comprehensive Metabolic Panel Est Preventative 40 to 64 years [address] [place] Lab Specimen Collect 25472 Lipid Panel Thyroid Stimulating Hormone Vitamin D 25 Hydroxy 2. Essential hypertension (I10: Essential (primary) hypertension) needs refills on labs Ordered: aripiprazole, 10 mg = 1 tab(s), Oral, Daily, # 90 tab(s), Refills(s) 0, Pharmacy: [facility], 165.5, cm, 08/16/24 13:58:00 EDT, Height/Length Dosing, 147.5, kg, 08/16/24 13:58:00 EDT, Weight Dosing cetirizine, 10 mg = 1 cap(s), Oral, Daily, PRN for allergy symptoms, # 90 cap(s), Refills(s) 0, Pharmacy: [facility], 165.5, cm, 08/16/24 13:58:00 EDT, Height/Length Dosing, 147.5, kg, 08/16/24 13:58:00 EDT, Weight Dosing fluticasone nasal, 2 spray(s), Nasal, Daily, 16 gram, Refill(s) 0, each nostril, [facility], 165.5, cm, 08/16/24 13:58:00 EDT, Height/Length Dosing, 147.5, kg, 08/16/24 13:58:00 EDT, Weight Dosing CBC w/ Auto Diff Comprehensive Metabolic Panel Est Preventative 40 to 64 years [address] Iron Level Lipid Panel Thyroid Stimulating Hormone Vitamin D 25 Hydroxy 3. Hypothyroid (E03.9: Hypothyroidism, unspecified) TSH in office today Ordered: aripiprazole, 10 mg = 1 tab(s), Oral, Daily, # 90 tab(s), Refills(s) 0, Pharmacy: [facility], 165.5, cm, 08/16/24 13:58:00 EDT, Height/Length Dosing, 147.5, kg, 08/16/24 13:58:00 EDT, Weight Dosing cetirizine, 10 mg = 1 cap(s), Oral, Daily, PRN for allergy symptoms, # 90 cap(s), Refills(s) 0, Pharmacy: [facility], 165.5, cm, 08/16/24 13:58:00 EDT, Height/Length Dosing, 147.5, kg, 08/16/24 13:58:00 EDT, Weight Dosing fluticasone nasal, 2 spray(s), Nasal, Daily, 16 gram, Refill(s) 0, each nostril, [facility], 165.5, cm, 08/16/24 13:58:00 EDT, Height/Length Dosing, 147.5, kg, 08/16/24 13:58:00 EDT, Weight Dosing CBC w/ Auto Diff Comprehensive Metabolic Panel Est Preventative 40 to 64 years [address] Iron Level Lipid Panel Thyroid Stimulating Hormone Vitamin D 25 Hydroxy 4. ELEUTERIO (generalized anxiety disorder) (F41.1: Generalized anxiety disorder) added abilify to current meds Ordered: cetirizine, 10 mg = 1 cap(s), Oral, Daily, PRN for allergy symptoms, # 90 cap(s), Refills(s) 0, Pharmacy: [facility], 165.5, cm, 08/16/24 13:58:00 EDT, Height/Length Dosing, 147.5, kg, 08/16/24 13:58:00 EDT, Weight Dosing fluticasone nasal, 2 spray(s), Nasal, Daily, 16 gram, Refill(s) 0, each nostril, [facility], 165.5, cm, 08/16/24 13:58:00 EDT, Hei (more content not included)... Normal [facility] Comment on above: Result Comment: Elec [...] 08-16-2024 Iron [Mass/Vol] 41 microgram/dL Normal 35-153 [facility] Comment on above: Performed By: #### 2 [id number] #### [facility] [address] [place] [address] Lipid Panelon 08-16-2024 Cholesterol [Mass/Vol] 135 mg/dL Normal 120-200 [facility] Comment on above: Performed By: #### 2 [id number] #### [facility] [address] [place] [address] Cholesterol in HDL [Mass/Vol] 36 mg/dL Invalid Interpretation Code [facility] Comment on above: Result Comment: '>= 60 LOW RISK' '<= 40 HIGH RISK' Performed By: #### 2 [id number] #### [facility] [address] [place] [address] Cholesterol in LDL [Mass/Vol] 90 mg/dL Normal <=129 [facility] Comment on above: Performed By: #### 2 [id number] #### [facility] [address] [place] [address] Cholesterol in VLDL [Mass/Vol] 28 mg/dL Normal 7-40 [facility] Comment on above: Performed By: #### 2 [id number] #### [facility] [address] [place] [address] Triglyceride [Mass/Vol] 142 mg/dL Normal <=149 [facility] Comment on above: Performed By: #### 2 [id number] #### [facility] [address] [place] [address] TSHon 08-16-2024 TSH Qn 7.11 m[IU]/L High 0.34-5.60 [facility] Comment on above: Performed By: #### 2 [id number] #### [facility] [address] [place] [address] Vitamin D 25 Hydroxyon 08-16 25-hydroxyvitamin D3 [Mass/Vol] ng/mL Low 30.0-100.0 [facility] Comment on above: Performed By: #### 5 [id number] #### [facility] [address] [place] [address] eGFRon 08-16-2024 eGFR 95 mL/min/1.73 m2 Normal >=59 [facility] Comment on above: Performed By: #### 1 [id number] #### [facility] [address] [place] [address] C Bloodon 01-30-2024 C Blood No growth at 5 Days Normal [facility] Comment on above: Performed By: #### 6 [id number] #### [facility] (DEFAULT) [address] [place] [address] Performed By: #### 6 [id number] ####[facility] (DEFAULT)[address] [place] [address] Coding Summaryon 01-30-2024 Coding Summary HTMLBase 64 WjzqfcqzESa3yIg+PGhl YWQ+DZ1YHNBwF48dwHWi dJ3iZ3XNKDhICwolIDJM UAiYQgRxmjObJB9seEOk ZXJu IC8+QD6hZVHcOoofiZQb l4R9lNC0G88tlk1fFBgj sBT1TAMtOwGimqjcn6tc iKc4HFvnZsuaIeBp LDPeoR11TSH1xZ05Az13 yBKorYYyj3ygvQq6AeRx YPVsXQB1jAgzVRbao9Bq SMRyB09xeTQve8C7 IGNvbGxhcHNlOyBlbXB0 dC0xKVuutwlrd0ndwvjj Ase6dy35yDDfb0H7gBV3 R8SabdL2PIBotANb QrywbYUVhC9sradsw9bn fttxUmTwHLUjTBc8UDd2 CCOfhYrbKzDeLS71KEA1 SDZcgqEhT4SuWCAw pWyjJfO5e5J0Xs1VQ0WU YphaR2HLCUOVWZctmYS+ DQ15ad49M6DiXhlrRim7 SKCgZOF9zWE4qZ6d JSMjJRbah1F0rVR1O9Jd ziAong5qj2vnQTIxDKcu P40lgWJmf6Q0RCPocOZ4 LCInlVweNwIryA39 Oyc+CEWirPzno8UtBuxm t3ezp8qodZa7UuxvUWMb pwBsyGfeOMZ6z2VtUc3d HDRduQU6uRY8nM7a VkJzDmP4MAwnM594JrDr iQLnFlmgH35lD1AhwQX+ IJAsRhr2ITDutIdhIH6d Q2KjOTZsvxemsFWx dDzbGW3oNAFwlwzzADDi kI8fSSTtD5j0AyKnNcH5 XWfiB0RnGUGemsmpWm14 dA0lEpPcKkN4RKtr J0LhdaI0UYVrdIUqNIgn JPR0K74ua3Q0TCPjKKWv VHE3xDO1iK8kmWkonmme bGVmdDsgdmVydGlj CYlsDBkwH936VGTabOgj PkNvZGluZyBEYXRlOiAg MDkvMjMvMjAyNDwvdGQ+ MPHgFVH7pCncHUKw bPUjCHniMb6lfUpacZgy TF1dQTRpyatoBHDdhW5j YTRpsZIktOzaYN0eTORm wtnnh188PmCfJHM8 HETriDJdX0KzhC3iRdYh UAZqDJCxH7UxbPEeQFxx E132IHyvDuL9TOCdzvZq P8ZiYTUasVaqMkH4 i2M2Xk3Gt9TmebztE2Pr mAUaXxVoKfybCGc2U4Vt PjwvdHI+LI79EMXsFI29 XVb3NMR3sKjdEBur BKZmK2AddY1wUfClGPQv ZGRkOyc+PHRhYmxlIHdp ZHRoPScxMDAlJyBzdHls GK9eFp1vNAHrJZEy uWgaeVBfWaGqa0edESHj JUlzQU6oaYvaQ0EqnYA0 ZDHma8d2Qh18Q40rM9Fn dXA+YJMujES3bAN4 lQ4bKiXfStZ7JNfsT592 PgIdyQShLpvbs8dpv9st zTa8YgJ1PPIqhcLseIad EFS5f2TuZp25F66o IHdpZHRoPSIxNSUiIHZh sXgrhl5urS6yWo2+PGNv rFH3kNX5hC1eQtUaWaC7 CDzdQ832XxIjoQMv Ltmfj4ukt6dpcAe2UoZb LZFezeBfwJirRUO1g7Ld Fq72A6RqmWthe5ObQry0 bn55pYInn2D3qUD2 Q1IzWUOouseciBHheBmj VQ2bCELgbznuPMNxlL5u KREsY0b3LhIhObQ4HKtv E6RtqfE7BGQslHOp BPMwgTXMxS2trsseg9yp vxgiHfCmFOVhPLp1QBz9 GBYquZaoHeGtQCA8QyH1 TJQ3lRIweS3epKyq hwjtiO7hRuf+BLH8nISe gUQOAR4cGvfxlHQ+PHRk IQS6aSoiCSnxTLPgxM5i ZZFkH4d3XdYkXrH1 RXbcT0IemsF8FZNraPAy SXSetFJIjW0evkgnd0bh atzbFjVkTZYwOBu8VEj2 LWFsaWduOiBsZWZ0 FcD3YSK8yVZkfW0rwWnx usqdaZ2vOtc+QmlydGgg AHY5DZu3H5XyWfh6RJTb rMsgHJ2vtSJkMTqz Ei5ifTdmeJbzRI5qMVEk xkejv913UfTwy5neXKPj zKKkACmdELQ1D95gm1Y1 JUSpBQJfOYT9fSO4 hK9qyCexfczgnNJvpZsj ydLffMfeEGcaBJwoQ800 UWYwvRffArQqRYl2K1Uv Vru6PQUvaQclZD8k wUYrUPirNc7qeQslyHnc BL1pNNHqfgosw827TjOu n9rkDVSfxZFcRRxcSQA6 Z00hf1P5WLSiZIIs JCC4jHU2wJ8dsEaylgcy bGVmdDsgdmVydGljYWwt YZsbK099ETDbeHcsXaPu kKb0A0XvHli1LGLq zKakZN9azUQoYBokEx4w lEedgZgrPA8xMRUkqalg m684YoLjy6scTYGztWEr EHikSQR6R46oi5V6 MURrWNPpUTF5cVG8tU8p bGlnbjogbGVmdDsgdmVy zJbpOHzwXEmyK169ILIt cDsnPlBhdGllbnQg VQwePFc5L6SsJftljPH+ DB19GHWbUJ59yRKkvKZn s7ywvAz2ChCaEUMsGPP7 zIcnVCbqg7JlBQIy G53ofCJpt4Y7QZJfjMyz aAXbGmPkaCS8mE3nCNlf kucob0jlhzyrUperu7le ta68bH62L17xDRsn ZHRoPSIzMCUiIHZhbGln sr3whO0pUe6+PGNvbCB3 wIF3pC1wOEAsCvS2TClr W868YaRptGMbNbyl t9clv2rbqYj4MkO5WMLk fcJjzYnaZKI5n1CeGw83 D43xOUsdHUNsZTLkBYYp XQFvqFcyxp0mzV5l Ii8+SIYjiBH6dDA0hM4k UzXuXnB8UAalQ972BjDy wJCvFejwB44eM2YvsNW+ MGHsZpv5HHUbpSya ED2fbSAiKWfxMw4bEZF1 BdRpEvWjMOtjS5OeTBSs wcpwijmzgHM5JLAzCGOy dI49Ot5qiMppETKk dBQJcA9lhoeky5xntsbt XqSxZGZjOFs2ZGt8GJAn kLcpIwDqGKV9RfM2LEH7 oDSrjO7hbPsoaxiz gH7xA3NvDVOqjtyrYp80 kN3sIyGlNkG8BWcoHjn+ O7bWG48ZSJMVFWMFFALj TFlOTjwvdGQ+PHRk WHE1rWsyWZcuBAKivR0t LFKaN9g4HeRwJcS7IVoi L7CoCRZezeazIq51uR1t CbQtKfU8RJivD0Db beD4KDVboLYhTSuoHYD0 M51nj9C9DFImWSLmKJE5 bPY0iV2beBkedswpcXHr dDsgdmVydGljYWwt CPddX180KXYebXvaZtDd BmT7PbI2INU5F2MqKzp0 DMLvjAhyUV5ajLQbTCmi My8pkQyiiCchPO8j NABtrmaxDHSuyW3sSHUq aYUaiVzlSI5qGZStjhln b362TxTlYAM5USOowROn M2XrfX3jNnQiELQi SPEaB0CtaBYbMPvoN952 DPsbOmC3VIYzdjBgI0Sa XFVfrEkwCbU2j1N0Qf7u OSBZZWFyczwvdGQ+ FQRaHKJ1cMwySByeCOBo qY5jDHVkJ4j0DlEbWyG8 IPnjE6HfHGGfcyktKr83 aE0tFbRhSsE4LOiw N8VzpgQ7YVMitHWoIHbj HYV4I60xi6Z6PBAzHTOd KPN8qOI6nG2crLkoumhy bGVmdDsgdmVydGlj FWkfPWgoN092QFJrqLjn PkZFTUFMRTwvdGQ+PHRk OKK9mFzuVAkzVAGzpS3z NWVxT2v3HnYvOwK7 CIqxN9AfWTQkdfitPb26 kM4nQtUdUeV0ZJtmG0Hc obM9ZEJfbFVjCQonVOY2 I71qg9S4ROQlSNFo NDE7xQQ3jH2nyXsrjaal bGVmdDsgdmVydGljYWwt MSkwX458NELwzSyxImSu WRTwVP0yaMdjjPH+ LL07mf02E8LwMompMcw4 LHFnGCP7oGZ2sM3iCFKv TTdmc8G3jFS5G3DtmhRr fd5zg4nrJEOoUUrq N34kbCDpw3A1LILqxJX7 STHomFtgYnSpuP10Uqf+ GYEapObjb7JmBopph1tw f5uyyGs1QqVpJVJb joGfqHkiVVB1g6XoAy53 F51lXTvhAZNqBMYdVZEw RQXgxDkgzb3kuB7lCk0+ KTTvjGF7fSL7sK1m DdHuDxT5SYolS958UiPw uWAsMedeu2cah1cbvRt7 IjIwJSIgdmFsaWduPSJ0 a3PeXo31Q0YikLpj z3QrVlk9ny21iBNzv0P6 vHT6P0TwCMBblfcorQCj zAuiAO0iDLOtnkkkGCCc cX2mKMCcQ4o0RxHj HxM2FUkeM3RmitM0FFIm qJOlECKdmVKRsW9xqzoo w8acnbnyJzEeXLKnYLo6 YFr5HZSzdRtkMhDu GJK9FpW0DNT0lZGklN2p yRmtcbntfZ3jHlb+UGh5 e2mytTQbLO9wiGC8DA64 OC89aRSwu2J7dGS9 A9MbOGKzymjwxmredFU8 SPMlHYBhiD61Pe6nyKba Ma5qKOUsTTB8UDBfkEVc Z2HygB7ySsGuROPe CUDyZ2KxeMNbGIgqI991 GOjcZoZ2CAKkvcMrL0Nw GXLviYwmTeX4u6W1Ce8G HV15CK47LT79eFSy b8U1xGS6P0YsIZFnigdx vaktlPA1VABzLSGraR51 Xi4yoFqfWb6qTKZdHGT8 JHVoaSXyA2AgbK1h PwGcDUQwLECfC5MidGZs CRofU079GAhzWjA5KMYa umOeB0EpOLYrcMjcDeU7 q6T8Mp6WTq21OG93 UJ32aNGrw8E5eGP8B9Pl IFBihhnttpuxiBC9FMBq FTGzfA41Fy6mhHqnOh7n TLKuUOG1FANbfRRj D5PmgV1bUwWdWCZoJBGh U1EpuYKeMVexH086RLlm FjR1IKPoocUvD7SnBTJi cPkpRiD7n3M9Cv8W GMobnqh0L9JzRxbmmQV+ TH17UWBtMK34yVUkhEGt m9yypOf3QqSqGVHxUNE3 cPizSGjso6UpXFOw Y29 (more content not included)... [facility] Coding Summary HTMLBase 64 VzuvjnyzOGd5bGg+PGhl YWQ+DW4PQABbG98ltHIe iW5iS3HDSTcXHofxKBSP TRnWKuRfcqGgUW1idWPx ZXJu IC8+UX9tPAMxKpgxnPYf l7D2bEU7P50spa0yQGyw iTK9SANvNkGtbmcgh8aq zFe6JZjlMdlyMbLg LQCfwX98OEV0jU51Gi04 oSKhdGHtv7zpiEi9XqBq ZEHcGVV0vOjxBQxnb7Zr SPChI98qlRMsi0G6 IGNvbGxhcHNlOyBlbXB0 cZ0eGGxyytrvj6ynwgyj Bkg2jz80yIZsw8V2cFC2 F4QbynF7VIFgvJRm HynlrDSWvT4rtpwws4od tujaQnYgBQXvFKj0SAm3 VAFogHubFdByFE26HJK3 MWEzthOdR9QqJPGr kEabHwS0s1X9Im4CC3ZO IfnyE7BKXDTJRGwsyOQ+ GB85lj47G2OzCwxeUgw1 VNBtQNU2pWU7yP5n UTTuCBpxb8A1pAC0C0Oa duPszc9pa3tnSWVlFHqk R56yvCDsb5D0HOJquDH2 SBPajUojNzZlyR06 Oyc+DHQalGwbg9BlZveq t3ysi7mloGb2MmxpAOIb fdKetNovZWC5g9OsKy1o NKKcrUT8yWB0vR8k BwOtMpY5FVpoM256SePp mCNnHhnfJ96qK0EcbTP+ ZSJeOny3MLDcdZhjMJ0n K1ThIFQswejfjYTi yQckKQ9rJGSckwtuZPDv tY7uFUSsV6r9KqSkQcL9 NYwdX2UvBESxjwqaJx52 oH1qPyVlAuK2KFlk E9DidsZ2WODyeJWxZBri MPG0G50fl5X9QEYnKFGo GCY5mRL5cE1ttTlossdm bGVmdDsgdmVydGlj BFjqEXyzK628TJTwbIcg PkNvZGluZyBEYXRlOiAg MDkvMjMvMjAyNDwvdGQ+ GNDzTGK1eQqhLIGb vDTbBVmvZl8qkVgdbEmn OM9yYWChjukfBETbmH2z AJXtdWUilBvsPT0uKZKe xyxvu832TlQlVTY9 TFLqlWEgN1EvwF2nXzYx FTJrJMAyG4RjwEYhVHgt O620HKwsZpF5BNGlfeVn J1TiAONelLyhHbU8 n4K0Hg7Qa5KuziqxX3Zd qEUcIgMvTrvzBBz0G4Py PjwvdHI+XB33VBJcXN84 CIb0KPI9aSkhMOrh NAZfA0CgmU5bCpXbRXId ZGRkOyc+PHRhYmxlIHdp ZHRoPScxMDAlJyBzdHls LN8bYv1gXQIbEZZi sAinhXWrYjObd9lmSLQi TJthKS9swJqcC2KjtBM9 HMUdk8h3Jh90P65kC9Hb dXA+IIQxcER2zGP2 wH8xRsDjNvI8IEqoG524 VeBuxTTiPlvga8gut0tj rMd4TtP8IFJgzkJzeHzv GXI1o5LdAq77N62c IHdpZHRoPSIxNSUiIHZh aLzove5bzT5pIw3+PGNv fWY2vIC6nG1tKeOqGrU6 RKdsZ235RyWsvGWx Sewyc2xpq2ohcZm0PxIy BXHioxWzjSatCEW5k6Wn Sa66A6KskUqfm4RvMxl0 ym48fKDew3L0xQB7 I7ElPMZfmqsvjVNjzRog MS6qJBSbfnmhALAocG0d PPGbM9z5YbSvToP7WVst W0HxvuJ3AZDcfCTk TNPraOHEuH5yitbaq1id jawxKcWdOTIvQAo3IIm9 KRQkgAkaIkWtAEM9SnW1 VFY1gUFofC2syRxv tcqaqZ6iEdg+WZY2ePEx xOLJYO3hDhcabHJ+PHRk EXS8nPiiKPpvOLAklW5i MEXhB7o5PpPyLdV9 XCbrF2YlrdU6YAYtbXGy XCAydQRQuW5yrkypk9tr kpjbWgXpPEEtOLs2HZd4 LWFsaWduOiBsZWZ0 AqR6QXM5dKPraI9zqIcm xqhlaO4oFjt+QmlydGgg ESK3KTk4Q9PlKfu3UITz fQqbKL5nfLGeQCny Mg9tjPkumNwbNO3gOYZw wxaej816VmBtc2erOYGy zOWfSWdvZTN3X50fi9D2 GQYcITXpKCZ9hTR0 oH8pbJsbvkzicDBehVrs irImmOvmPDztLZslJ740 DOOchGpcRlDmTQc7V4Dx Add4UBRpgPncLX4l aAJqTNsaNu8jhTdzsQbo XJ4zXQMqfgspj386NuEc t1dzJVVzeDGcEEzlCFB8 G50wi2F1ZZTeKBAn WPK1iZV7eY7xbJpvjudz bGVmdDsgdmVydGljYWwt CSwlA107CNSexLoeYwBs lVy9B0XwSid6KQPu dNflBB1lkVBqLNkxZn8f pGqtgDdjMZ7cNPHneawt r575FcScw5aqAXPewVKa IJkaAZB9J17dm2V5 BNJgOVCjSRE9oML3kW5v bGlnbjogbGVmdDsgdmVy uWfcFPzwSIusR508IWFn cDsnPlBhdGllbnQg OMmuJLb4P1ObOabcxYW+ MI76MSSiJQ63qRKrwFTz w1qzwXv7FiMbOAMgDZP4 eNyxCSfdj0MhBWPq E43glGUeu4G8HNShaVrd qTKhWdCjoRG2kP6iFEfl uacgy6jwkqarZukwy5qy pf49bJ59A96pLIyd ZHRoPSIzMCUiIHZhbGln bp5quZ7jPg9+PGNvbCB3 zDY7jD0yNHJjFqJ3PDpg O413ObEcyPQpGrhi t0esu6yojTf3SiU8KWXj itTpiLecTFT8z3YrWf85 F19jASruVESlVHCfWKDn GXGbjUpofy5vkQ6q Ii8+BQRnyNQ9dTH7gH5l AlRsRlH5AJhhE171WfCs dGRxAgedE38pB7YikQW+ QWEwRzq2NFGxjCav VO7ltVWbGNazBo4kWVL8 XdIuKcJeVAypO9JoFORm imqpadtnfYA2YMAxTDSw uA20Ks9dvYryCVJy sNYDyU2toorps9pfljdo EaKdAFAfZLn5QOf5JVKq sGesKgYuVFF7QyZ6EEQ3 zQIvaR7fuOtyzsoc dX3qS8WqVTDetwdnXw86 cT8lVeVuAmV4RRozCrr+ H2jYE83KVMAUBPTGVNTi TFlOTjwvdGQ+PHRk UYE3uYrfFQgbBUAlzE5z ODJgX3z2PjAgBkI0DGbb B8KnSUMjtfbeKm12eW1i KpRySrI3SYfgC4Di fcA7PNLalTEbHIsqAOB9 A37rc7H9QOLpNSIySFH7 iHS7aP6wlGalhrkedNGe dDsgdmVydGljYWwt XQgkG404DHUtxHzqAvJm QjF7PyA1HBH4F2ZjXlx7 TAXzbDepTH5zzWDnQEcb Iv7auPeqvChdKK9o ONWzhxbjZQPtcY1dKINh qZQmuCjuYH9tNPZheybi e410KnLtAUC7KUZmnVXz M4HqqB0wNoZvCBKb SJYgJ7VqnIZhATzfJ451 GOfuFpR2TXTvptKiE9Eu LZOzfAfuPrV5n1K7Mr4u OSBZZWFyczwvdGQ+ GTFzWPM4pGsqZQoiVJHo wQ1bIEReW9t0ZlKcEkB0 CUyuD7UqDUTgjbjfKb31 eF7mXbOtNqS0QEtt N3UfyjW0FWSndLNgOOmi EIT2P41av7P9RQCoWPNa ESI5kZP2jQ9uiCxbuoar bGVmdDsgdmVydGlj GDarVTnmN818YYReoZpy PkZFTUFMRTwvdGQ+PHRk IWI5rJbaNLutOPErdW9j VHLsE5m2AoWuKlH7 VQyoW3NxDNVsboxdLq12 cZ8iLyNeSlZ6JFtzL3Mm jgU5XBEmuWUeEYmzJCS3 Y24ht1U3UQJkZDEe BDX2zDI0bF6tsHhwtqsg bGVmdDsgdmVydGljYWwt PEytA760MHHgsJvkNi4t s3FhdeR3kD9lNC53 WG86B9AlYzzvvVPwhFH+ PHRhYmxlIHdpZHRoPScx GFJzBiHmfVadQT3vJi2s ZGVyLWNvbGxhcHNl PlEzo5bqNKMvVEodDH7h fXjbP9AqhIE3FCSdi0a9 Kl51N74iK8QmpIN+PGNv rOI4pJU2zL9yVvRn ZxW1HYihN646GuRfjYZw Udofy7jfe8xmtZs3QfXr QDYmxrCdmIluIHY1g2Jj Fe20H34fRKtaMQHt FGKtYUQmMIGuiRhrdl2x jN2pNd5+MZAgnHA4qQI0 vU3hTjCaEpT9SVfgC028 DmXqnHChMsbeH26v L0XasSN+JTVlFgh9QKIb tOliPG6pcSEiUTevDm9f CLS3MsGuRlYhKAjtA4Dm ZGRpbmctcmlnaHQ6 VFHmACGrgV70Af6aqHkc Pk1lIOBoVVY0QXRzxHOw K4HsgC8dBsHpYUZcQBDg S6MkxMGbKEilQ267 NQxqEaQ5CCVofgWdA5Xk XVXdrXkuMgG9s6F2Pv3T dClmtXIbLM4iIpIgGQa9 T0CgLgh7XDJvyUss VT2ptBSaTNhpYc9lkUrc oHttIX7iTSAdiuspn265 JqRmf1rvLRIndTYtBTmz FKY1V70cg0U3TTUu CVAmOKS6eRQ3cC3zyFjd bjogbGVmdDsgdmVydGlj FZjdDTghR324SJPohJvn CqVGDjz9X0GwKkg2 EXMmaDywAF3xeVKwKOqk Us3fnHutqVlcKC5lVPLg ypufi080OxYew3isVMZi oYVtNKpoETA6O53w v0H0RTFdNJAqLTC4fXV7 bB8wiEgqssuggWEhkTaw wfSeeBlyDRxnHBvmL770 TPDmxVlkAu5WPzm9 N4RxOgk4NAPjeCxgDS7a tXOlCHhnCc9qwDuhsNvw FL5gZQLutrvff625GeIb g9whTGRscHIvOEaw NTP1N41kv5B7BZRwOYVt IXX3sQX0uC3foVldbelv bGVmdDsgdmVydGljYWwt TQwoF914UVGsjBis PlBheWVyOjwvdGQ+PC90 um40W3DbIyqiQys9CFUa JVV3lBG5kX6gFMLmCGyk o1I1kTZ3J6AardVa ci1 (more content not included)... Normal [facility] Consent Formson 01-27-2024 Consent Forms [id number] #1.00OTGTIFF [facility] .Auto Diff 1on 01-26-2024 Auto [place] % 5 % Normal 05-20 [facility] Comment on above: Performed By: #### 7 710632, 1879075, 19941483, [id number], 8981545 #### [facility] (DEFAULT) [address] [place] [address] 73122 Baso Abs# 0.0 x10 Normal 0.0-0.2 [facility] Comment on above: Performed By: #### 7 127256, 9562658, 25309805, [id number], 5704997 #### [facility] (DEFAULT) [address] [place] [address] 38134 Basophils/100 WBC (Bld) 0.5 % Normal 0.2-2.0 [facility] Comment on above: Performed By: #### 7 197957, 3422442, 31867382, [id number], 0093436 #### [facility] (DEFAULT) [address] [place] [address] 35114 Eos Abs# 0.3 x10 Normal 0.0-0.4 [facility] Comment on above: Performed By: #### 7 664306, 0962727, 05195170, 4196489346, 8615072 #### [facility] (DEFAULT) [address] [place] [address] 57354 Eosinophils/100 WBC (Bld) 3.2 % Normal 0.9-4.0 [facility] Comment on above: Performed By: #### 7 528147, 4444446, 62109296, 9264315107, 7339711 #### [facility] (DEFAULT) [address] [place] [address] 80594 Lymph Abs# 3.7 x10 High 1.3-2.9 [facility] Comment on above: Performed By: #### 7 357842, 9955133, 71679647, 5979846786, 4467070 #### [facility] (DEFAULT) [address] [place] [address] 23117 Lymphocytes/100 WBC (Bld) 39 % Normal 14-48 [facility] Comment on above: Performed By: #### 7 330789, 7565806, 73754920, 7410718354, 7265038 #### [facility] (DEFAULT) [address] [place] [address] 66963 [place] Abs# 0.5 x10 Normal 0.0-0.8 [facility] Comment on above: Performed By: #### 7 922675, 4179527, 56288991, 8636937859, 7030525 #### [facility] (DEFAULT) [address] [place] [address] 92933 Neut Abs# 4.9 x10 Normal 1.5-9.2 [facility] Comment on above: Performed By: #### 7 977186, 6502537, 39516730, 6582012954, 0036185 #### [facility] (DEFAULT) [address] [place] [address] 57544 Neutrophils/100 WBC (Bld) 52 % Normal 44-88 [facility] Comment on above: Performed By: #### 7 938144, 4838381, 56790057, 1062477317, 3765366 #### [facility] (DEFAULT) [address] [place] [address] [facility] Standardon 01-26-2024 eGFR Non AA >60 Invalid Interpretation Code [facility] Comment on above: Performed By: #### 7 271699, 6645973, 97899908, [id number], 3337146 ####[facility] (DEFAULT)[address] [place] [address] 50590 eGFR AA >60 Invalid Interpretation Code [facility] Comment on above: Performed By: #### 7 487835, 7512120, 32622147, 2588385512, 5129515 ####[facility] (DEFAULT)[address] [place] [address] 94170 Anion gap [Moles/Vol] 11.7 mmol/L Normal 5.0-19.0 [facility] Comment on above: Performed By: #### 7 210740, 2021126, 62297933, 8805500848, 9766675 ####[facility] (DEFAULT)[address] [place] [address] 23632 Calcium [Mass/Vol] 8.5 mg/dL Low 8.9-10.3 [facility] Comment on above: Performed By: #### 7 598788, 6851727, 66765455, 9890790415, 9336672 ####[facility] (DEFAULT)[address] [place] [address] 32004 Chloride [Moles/Vol] 99 mmol/L Low 101-111 [facility] Comment on above: Performed By: #### 7 032601, 1363267, 94878353, 2727177375, 2491938 ####[facility] (DEFAULT)[address] [place] [address] 64579 CO2 [Moles/Vol] 30 mmol/L Normal 21-32 [facility] Comment on above: Performed By: #### 7 520318, 5723390, 09630346, 8307023306, 3912656 ####[facility] (DEFAULT)[address] [place] [address] 60091 Creatinine [Mass/Vol] 0.88 mg/dL Normal 0.60-1.30 [facility] Comment on above: Performed By: #### 7 361582, 9747641, 47036420, 4549440917, 8831202 ####[facility] (DEFAULT)[address] [place] [address] 66450 Glucose [Mass/Vol] 88.0 mg/dL Normal 74.0-118.0 [facility] Comment on above: Performed By: #### 7 269738, 8616802, 06415583, 5033171642, 1916438 ####[facility] (DEFAULT)[address] [place] [address] 21298 Osmolality 272 mOsm/L Invalid Interpretation Code [facility] Comment on above: Performed By: #### 7 846841, 5157843, 80470853, [id number], 1083003 ####[facility] (DEFAULT)[address] [place] [address] 95136 Potassium [Moles/Vol] 3.7 mmol/L Normal 3.6-5.1 [facility] Comment on above: Performed By: #### 7 443489, 9108438, 65128311, 8754091360, 4532158 ####[facility] (DEFAULT)[address] [place] [address] 01124 Sodium [Moles/Vol] 137.0 mmol/L Normal 136.0-144.0 [facility] Comment on above: Performed By: #### 7 847946, 6371660, 09013031, 3729985564, 9766366 ####[facility] (DEFAULT)[address] [place] [address] 76463 Urea nitrogen [Mass/Vol] 10 mg/dL Normal 8-26 [facility] Comment on above: Performed By: #### 7 245217, 4301106, 15999151, 3474792488, 2021486 ####[facility] (DEFAULT)[address] [place] [address] Urea nitrogen/Creatinine [Mass ratio] 11.3 mg/mg Normal 4.6-16.2 [facility] Comment on above: Performed By: #### 7 499640, 2541032, 44759891, 9754606972, 5278373 ####[facility] (DEFAULT)[address] [place] [address] CBC w/ Auto Diffon 4 Erythrocyte distribution width (RBC) [Ratio] 16.2 % High 11.5-15.0 [facility] Comment on above: Performed By: #### 7 192728, 4173009, 61774331, 4332488656, 9157875 #### [facility] (DEFAULT) [address] [place] [address] Hematocrit (Bld) [Volume fraction] 35.9 % Normal 33.7-40.4 [facility] Comment on above: Performed By: #### 7 749858, 2354852, 61187400, 7096300951, 7591001 #### [facility] (DEFAULT) [address] [place] [address] Hemoglobin (Bld) [Mass/Vol] 11.7 g/dL Normal 11.3-15.9 [facility] Comment on above: Performed By: #### 7 070380, 3198196, 30103395, 9555814930, 5912725 #### [facility] (DEFAULT) [address] [place] [address] Man Diff? Auto Invalid Interpretation Code [facility] Comment on above: Performed By: #### 7 040552, 6830499, 33412742, 5176789509, 3259309 #### [facility] (DEFAULT) [address] [place] [address] MCH (RBC) [Entitic mass] 25 pg Normal 24-34 [facility] Comment on above: Performed By: #### 7 701204, 6101036, 61671468, 5205179479, 4628473 #### [facility] (DEFAULT) [address] [place] [address] MCHC (RBC) [Mass/Vol] 32 g/dL Normal 26-37 [facility] Comment on above: Performed By: #### 7 083154, 6413029, 88392260, 5341828574, 7690258 #### [facility] (DEFAULT) [address] [place] [address] MCV (RBC) [Entitic vol] 76 fL Low 81-100 [facility] Comment on above: Performed By: #### 7 620637, 4171809, 94183026, 5499379852, 6226903 #### [facility] (DEFAULT) [address] [place] [address] Platelet 384 x10 Normal 138-427 [facility] Comment on above: Performed By: #### 7 271686, 1305617, 90874202, 4008750353, 3969898 #### [facility] (DEFAULT) [address] [place] [address] Platelet mean volume (Bld) [Entitic vol] 7.2 fL Normal 6.3-10.2 [facility] Comment on above: Performed By: #### 7 222502, 5659925, 49293606, 3566460484, 5288147 #### [facility] (DEFAULT) [address] [place] [address] RBC 4.69 x10 Normal 3.70-5.30 [facility] Comment on above: Performed By: #### 7 436791, 1523516, 57821546, 1873460456, 1963161 #### [facility] (DEFAULT) [address] [place] [address] WBC 9.4 x10 Normal 3.5-10.5 [facility] Comment on above: Performed By: #### 7 753936, 5280819, 82612029, 4979069751, 9588322 #### [facility] (DEFAULT) [address] [place] [address] Consent Formson 01-26-2024 Consent Forms [id number] #1.00OTGTIFF [facility] ED Note-Nursingon 01-26-2024 ED Note-Nursing Patient admitted to the floor, hospitalist to review cultures. [facility] Magnesiumon 01-26-2024 Magnesium [Mass/Vol] 2.11 mg/dL Normal 1.80-2.50 [facility] Comment on above: Performed By: #### 7 130079, 9065774, 22113448, 1507458902, 4478041 ####[facility] (DEFAULT)[address] [place] [address] Pharmacy Noteon 01-26-2024 Pharmacy Note The following medications(s) has been reviewed for renal dose adjustment per P &T protocol based on the patient's current creatinine clearance: Medication: Piperacillin/Tazobac pritchett 3.375gm IV QID Estimated CrCl: 129.5 ml/min (based on adjusted body weight) Action: No change required Changes Made: [Electronically Signed on: 01/26/2024 09:54 EDT] Simba Kovasc PharmD [Verified on: 01/26/2024 09:54 EDT] Simba Kovacs PharmD [facility] Pharmacy Note This is a 38 Yearsyo FEMALE presenting with Diagnosis for this visit Cellulitis of right elbow (L03.113) Elevated blood pressure reading (R03.0) Arm pain-swelling ([id number]) Abscess ([id number]) for IP vancomycin dosing per pharmacy to [...] 01/28/24. [Electronically Signed on: 01/26/2024 09:50 EDT] Sibma Kovacs PharmD [Verified on: 01/26/2024 09:50 EDT] [facility]acs [facility]D [facility] Phosphate [Mass/Vol] 3.4 mg/dL Normal 2.5-4.6 [facility] Comment on above: Performed By: #### 7 622431, 5818879, 00362201, 7815097222, 7019513 ####[facility] (DEFAULT)[address] [place] [address] Progress Note - Nurseon 01-07 Progress Note - Nurse Patient wants to leave AMA Notified scripts called to [facility]. Patient signed AMA paperwork and states she will call a cab to go home. [Electronically Signed on: 01/26/2024 14:04 EDT] Meeta James RN [Verified on: 01/26/2024 14:04 EDT] Meeta James RN Normal [facility] .Auto Diff 1on 01-25-2024 Auto [place] % 5 % Normal 05-20 [facility] Comment on above: Performed By: #### 1 [id number], 9560828, 6186368599, 5564768421, 63379568, 7124982, 4976555928, 1699680081 ####[facility] (DEFAULT)[address] [place] [address] 57908 Baso Abs# 0.1 x10 Normal 0.0-0.2 [facility] Comment on above: Performed By: #### 1 [id number], 8313177, 0670741306, 6280167410, 64669823, 2406397, 9927690803, 4768930060 ####[facility] (DEFAULT)[address] [place] [address] 92259 Basophils/100 WBC (Bld) 1.0 % Normal 0.2-2.0 [facility] Comment on above: Performed By: #### 1 301773706, 2496777, 8172210191, 0653530590, 66692210, 6539329, 1820294126, 7892861427 ####[facility] (DEFAULT)[address] [place] [address] 58600 Eos Abs# 0.4 x10 Normal 0.0-0.4 [facility] Comment on above: Performed By: #### 1 566369576, 3850696, 3201056222, 8745025281, 80852949, 5878443, 8157446496, 4097552530 ####[facility] (DEFAULT)[address] [place] [address] 48521 Eosinophils/100 WBC (Bld) 3.4 % Normal 0.9-4.0 [facility] Comment on above: Performed By: #### 1 047475547, 0744615, 7839997973, 0571608447, 82322637, 5893679, 8137508083, 2544687892 ####[facility] (DEFAULT)[address] [place] [address] 09161 Lymph Abs# 4.2 x10 High 1.3-2.9 [facility] Comment on above: Performed By: #### 1 699102878, 7951435, 4025248648, 2081347150, 81319160, 4379958, 0675182790, 0008980836 ####[facility] (DEFAULT)[address] [place] [address] 84783 Lymphocytes/100 WBC (Bld) 40 % Normal 14-48 [facility] Comment on above: Performed By: #### 1 111619982, 9656066, 0131841677, 1907128132, 45958194, 9496378, 9686617309, 1925236840 ####[facility] (DEFAULT)[address] [place] [address] 79419 [place]onia Abs# 0.5 x10 Normal 0.0-0.8 [facility] Comment on above: Performed By: #### 1 349576519, 6794277, 9800649879, 8471522819, 14400384, 7855520, 5292352636, 9383185184 ####[facility] (DEFAULT)[address] [place] [address] 11025 Neut Abs# 5.4 x10 Normal 1.5-9.2 [facility] Comment on above: Performed By: #### 1 845310401, 6985232, 7651810975, 9002054570, 99821748, 8487598, 6403344069, 9583801223 ####[facility] (DEFAULT)[address] [place] [address] 69034 Neutrophils/100 WBC (Bld) 51 % Normal 44-88 [facility] Comment on above: Performed By: #### 1 096258179, 6733367, 2855625365, 6978223176, 39027962, 2262804, 7223505128, 3802444547 ####[facility] (DEFAULT)[address] [place] [address] 09792 CBC w/ Auto Diffon 4 Erythrocyte distribution width (RBC) [Ratio] 16.0 % High 11.5-15.0 [facility] Comment on above: Performed By: #### 1 963228459, 4346859, 9269538607, 6001710142, 80167217, 8200211, 5021492962, 2972478200 ####[facility] (DEFAULT)[address] [place] [address] Hematocrit (Bld) [Volume fraction] 36.9 % Normal 33.7-40.4 [facility] Comment on above: Performed By: #### 1 965899164, 7544933, 3693008028, 3848093725, 84215422, 3810870, 9038013885, 8897461568 ####[facility] (DEFAULT)[address] [place] [address] Hemoglobin (Bld) [Mass/Vol] 12.2 g/dL Normal 11.3-15.9 [facility] Comment on above: Performed By: #### 1 700472443, 2159257, 8110352482, 8630612027, 60230732, 4026764, 2304553622, 4865500309 ####[facility] (DEFAULT)[address] [place] [address] Man Diff? Auto Invalid Interpretation Code [facility] Comment on above: Performed By: #### 1 336190352, 4880660, 7617661621, 2049622794, 90224944, 8228622, 0959664177, 2182540615 ####[facility] (DEFAULT)[address] [place] [address] 48440 MCH (RBC) [Entitic mass] 25 pg Normal 24-34 [facility] Comment on above: Performed By: #### 1 431730496, 5124239, 3123747373, 7518663683, 41550161, 9488639, 0363024702, 0542561051 ####[facility] (DEFAULT)[address] [place] [address] 42428 MCHC (RBC) [Mass/Vol] 33 g/dL Normal 26-37 [facility] Comment on above: Performed By: #### 1 219269588, 7320460, 3030026423, 2308891646, 35866793, 8998961, 6252303407, 4781701594 ####[facility] (DEFAULT)[address] [place] [address] 38975 MCV (RBC) [Entitic vol] 76 fL Low 81-100 [facility] Comment on above: Performed By: #### 1 238696572, 8622751, 6481142902, 8296292875, 77332215, 7856145, 0582231326, 7006038328 ####[facility] (DEFAULT)[address] [place] [address] 81802 Platelet 394 x10 Normal 138-427 [facility] Comment on above: Performed By: #### 1 798714757, 0741897, 7021832082, 7823092134, 03819287, 6492273, 6853270589, 0361164713 ####[facility] (DEFAULT)[address] [place] [address] 82329 Platelet mean volume (Bld) [Entitic vol] 7.0 fL Normal 6.3-10.2 [facility] Comment on above: Performed By: #### 1 646149167, 8882259, 5743703198, 3698965095, 63919249, 0912228, 2747950548, 7415137274 ####[facility] (DEFAULT)[address] [place] [address] 19264 RBC 4.84 x10 Normal 3.70-5.30 [facility] Comment on above: Performed By: #### 1 039973414, 3156564, 0450468084, 4800467001, 40170111, 4391635, 2058474577, 5853340356 ####[facility] (DEFAULT)[address] [place] [address] 52836 WBC 10.7 x10 High 3.5-10.5 [facility] Comment on above: Performed By: #### 1 878708771, 9661080, 0672049276, 1136449445, 23469537, 3985683, 0225635433, 4741352473 ####[facility] (DEFAULT)[address] [place] [address] 58550 CMP Standardon 01-25-2024 eGFR Non AA >60 Invalid Interpretation Code [facility] Comment on above: Performed By: #### 1 903999977, 1924282, 7600316836, 7864366831, 68446943, 9650042, 6889574729, 5434402099 ####[facility] (DEFAULT)[address] [place] [address] 57985 eGFR AA >60 Invalid Interpretation Code [facility] Comment on above: Performed By: #### 1 225627573, 4958252, 7354213559, 5709182591, 17494937, 8679199, 4308006713, 5390606234 ####[facility] (DEFAULT)[address] [place] [address] 33162 Albumin [Mass/Vol] 3.6 g/dL Normal 3.5-5.0 [facility] Comment on above: Performed By: #### 1 178096166, 1355940, 1679115454, 0127739181, 80901329, 5022730, 9916224839, 4180230296 ####[facility] (DEFAULT)[address] [place] [address] 58946 Albumin/Globulin [Mass ratio] 0.7 {ratio} Low 1.4-2.6 [facility] Comment on above: Performed By: #### 1 069143285, 1323675, 7670247946, 2660554691, 19851047, 1146458, 9376014217, 8644221101 ####[facility] (DEFAULT)[address] [place] [address] 35956 Alk Phos 78 IU/L Normal 32-91 [facility] Comment on above: Performed By: #### 1 704251237, 3307352, 5476459933, 0697980375, 01509280, 7585886, 7832135283, 0879542382 ####[facility] (DEFAULT)[address] [place] [address] 16483 ALT [Catalytic activity/Vol] 24.0 U/L Normal 14.0-54.0 [facility] Comment on above: Performed By: #### 1 103004853, 2360377, 3016389468, 2234555730, 13503986, 5882494, 3818945170, 6432650772 ####[facility] (DEFAULT)[address] [place] [address] 03155 Anion gap [Moles/Vol] 11.5 mmol/L Normal 5.0-19.0 [facility] Comment on above: Performed By: #### 1 389919241, 7599756, 2776772760, 3399681313, 00877531, 6099287, 4961796230, 4297421591 ####[facility] (DEFAULT)[address] [place] [address] 69665 AST [Catalytic activity/Vol] 29 U/L Normal 15-41 [facility] Comment on above: Performed By: #### 1 366549038, 3749070, 3262502992, 7384090735, 53162627, 6888860, 5436098441, 5536817922 ####[facility] (DEFAULT)[address] [place] [address] 92383 Bili Total 0.3 mg/dL Normal 0.3-1.2 [facility] Comment on above: Performed By: #### 1 187126039, 8483760, 9251092769, 3728043138, 86756449, 7686883, 5477246642, 9258430719 ####[facility] (DEFAULT)[address] [place] [address] 64409 Calcium [Mass/Vol] 8.6 mg/dL Low 8.9-10.3 [facility] Comment on above: Performed By: #### 1 161620497, 1167714, 1846695483, 8683666773, 68083581, 1252729, 0588860183, 0067939529 ####[facility] (DEFAULT)[address] [place] [address] 82184 Chloride [Moles/Vol] 98 mmol/L Low 101-111 [facility] Comment on above: Performed By: #### 1 056125197, 6101070, 7915029664, , 73175823, 5462980, 4495805702, 3725006826 ####[facility] (DEFAULT)[address] [place] [address] 10514 CO2 [Moles/Vol] 28 mmol/L Normal 21-32 [facility] Comment on above: Performed By: #### 1 831537326, 2320491, 9632601996, 5501978411, 04755030, 0515374, 5335548492, 2626170116 ####[facility] (DEFAULT)[address] [place] [address] 99433 Creatinine [Mass/Vol] 0.90 mg/dL Normal 0.60-1.30 [facility] Comment on above: Performed By: #### 1 922249419, 9220593, 0227334104, 9910671908, 72280962, 5051135, 9180216917, 7190146200 ####[facility] (DEFAULT)[address] [place] [address] 83960 Globulin (S) [Mass/Vol] 4.8 g/dL High 1.5-4.3 [facility] Comment on above: Performed By: #### 1 693841990, 6060727, 3649169811, 0568523572, 56791212, 0583762, 6253986986, 4207017324 ####[facility] (DEFAULT)[address] [place] [address] 72287 Glucose [Mass/Vol] 137.0 mg/dL High 74.0-118.0 [facility] Comment on above: Performed By: #### 1 684248849, 5193100, 7017962409, 4273264168, 89724149, 8893137, 1916858074, 5333442283 ####[facility] (DEFAULT)[address] [place] [address] 09876 Osmolality 270 mOsm/L Invalid Interpretation Code [facility] Comment on above: Performed By: #### 1 791348584, 7111776, 0310066445, 2075350374, 19883335, 9415874, 5794802481, 5012501324 ####[facility] (DEFAULT)[address] [place] [address] 87533 Potassium [Moles/Vol] 3.5 mmol/L Low 3.6-5.1 [facility] Comment on above: Performed By: #### 1 246741280, 3907891, 3714874861, , 70805617, 8887116, 8656833481, 8628636038 ####[facility] (DEFAULT)[address] [place] [address] 54119 Protein [Mass/Vol] 8.4 g/dL High 6.5-8.1 [facility] Comment on above: Performed By: #### 1 397753123, 2502397, 0193032988, 3454497746, 31305654, 7976432, 7200063341, 2185008551 ####[facility] (DEFAULT)[address] [place] [address] Sodium [Moles/Vol] 134.0 mmol/L Low 136.0-144.0 [facility] Comment on above: Performed By: #### 1 728569556, 0409527, 1864294607, 9112020215, 41467960, 8263683, 2857239484, 3050897154 ####[facility] (DEFAULT)[address] [place] [address] 68055 Urea nitrogen [Mass/Vol] 11 mg/dL Normal 8-26 [facility] Comment on above: Performed By: #### 1 725445874, 7464832, 0821836899, 1311976302, 06477635, 3378103, 8487682360, 3549079507 ####[facility] (DEFAULT)[address] [place] [address] 06804 Urea nitrogen/Creatinine [Mass ratio] 12.2 mg/mg Normal 4.6-16.2 [facility] Comment on above: Performed By: #### 1 107538579, 7461317, 8394909135, 6385065863, 78310590, 2732494, 3900722141, 1906111002 ####[facility] (DEFAULT)[address] [place] [address] CRPon 01-25-2024 CRP 5.8 mg/dL High <=0.5 [facility] Comment on above: Performed By: #### 1 898099049, 6361738, 2964950322, 2669812149, 32909068, 1847197, 8915256855, 9709851753 ####[facility] (DEFAULT)[address] [place] [address] Upper Extremity w/ Contra st Righton [...] Michael MD 01/25/24 9:53 pm Technologist: CHAR Villaivcencio [facility] ED Clinical Summaryon 2023 ED Clinical Summary [facility] - Emergency Department [address] [place] [address] 80879 ED Clinical Summary PERSON INFORMATION Name: ELYLN CUEVAS Age: 38 Years Sex: FEMALE : 1985 MRN: Acct#: Visit Reason: Abscess; Arm pain-swelling; RT ELBOW CELLULITIS Arrival: 01/25/2024 18:59:32 Discharge: LOS: 000 03:23 Check In: 01/25/2024 18:59:32 Checkout:01/25/2024 22:22:08 Address: [address] [place], [place] [id number] PCP: Provider, None PROVIDER INFORMATION Provider Role Assigned Unassigned Billie Cortez YARDER ENGINEER Nurse 01/25/2024 19:04:19 Arslan Christiansen MD ED [...] iver verbalizes understanding of instructions given Comment: [facility] ED Note-Nursingon 01-25-2024 ED Note-Nursing 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 She is making phone calls. Will keep patient in ED until she finds someone to pick child up. [facility] ED Patient Education Noteon 01-25-2024 ED Patient Education Note Education Materials [facility] ED Patient Summaryon 024 ED Patient Summary [facility] - Emergency Department [address] [place] [address] PATIENT DISCHARGE INSTRUCTIONS Patient Information Name: ELLYN CUEVAS Age: 38 Years Date of : 1985 Reason For Visit: Abscess; Arm pain-swelling; RT ELBOW CELLULITIS Arrival Time: 01/25/2024 18:59:32 Primary Care Physician: Provider, None Attending Physician: Morgan Anton MD Comment: Visit Diagnosis: Diagnoses This Visit Abscess ([id number]) Arm pain-swelling ([id number]- [id number]) Cellulitis of right elbow (L03.113) Elevated blood pressure reading (R03.0) The Pharmacy at [facility] is open Tuesday through Tuesday from 9A [...] alcohol and/or drug addiction problems; contact the [facility] 29/11 Crisis Hotline -Text 2HMWB cr 877862. If you received any narcotics, sedation, or [...] and treatment you received today in the [facility] Department were for an urgent problem and are not intended as complete care. It is important for you to follow up with a doctor, nurse practitioner, or physician?s janitorial assistant for ongoing care. If your symptoms [...] so we can reach you if necessary. [facility] Emergency Department has provided you with a complete list of medications post discharge. Please inform your pest controller/provider of your visit and for further instruction [...] Cuff-Calculation: 1 (more content not included)... Normal [facility] Extra Redon 01-25-2024 Tube Collected Yes Invalid Interpretation Code [facility] Comment on above: Performed By: #### 1 [id number], 9342519, 6187997942, 8046027513, 43933752, 5983995, 6566315882, 9504548984 ####[facility] (DEFAULT)[address] [place] [address] Lactic Acidon 01-25-2024 Lactic Acid 13.7 mg/dL Normal 4.5-19.8 [facility] Comment on above: Performed By: #### 2 [id number] ####[facility] (DEFAULT)[address] [place] [address] ED Clinical Summaryon 2023 ED Clinical Summary [facility] - Emergency Department [address] [place] [address] ED Clinical Summary PERSON INFORMATION Name: ELLYN CUEVAS Age: 38 Years Sex: FEMALE : 1985 MRN: Acct#: Visit Reason: Arm pain-swelling; UPPER RT ARM SWOLLEN AND RED Arrival: 01/22/2024 15:56:29 Discharge: 01/22/2024 16:27:00 LOS: 000 00:31 Check In: 01/22/2024 15:56:29 Checkout:01/22/2024 16:27:00 Address: [address] [place] [address] PCP: Provider, None PROVIDER INFORMATION Provider Role Assigned Unassigned Arslan Christiansen MD ED Provider 01/22/2024 15:58:03 Ann Monroe YARDER ENGINEER Nurse 01/22/2024 16:16:07 VITALS INFORMATION Vital Sign [...] Home PATIENT EDUCATION INFORMATION Instructions: Hypertension, Adult, Jfch-ne-Tkut; Cellulitis, Adult, Uopg-ys-Tyke Follow-Up: With: Address: When: Follow up with primary care provider Within 3 to 5 days DIAGNOSIS: 1:Cellulitis of right elbow; 2:Elevated blood pressure reading Patient Understands: Yes - Patient/family/careg iver verbalizes understanding of instructions given Comment: Normal [facility] ED Patient Summaryon 024 ED Patient Summary [facility] - Emergency Department [address] [place] [address] PATIENT DISCHARGE INSTRUCTIONS Patient Information Name: ELLYN CUEVAS Age: 38 Years Date of : 1985 Reason For Visit: Arm pain-swelling; UPPER RT ARM SWOLLEN AND RED Arrival Time: 01/22/2024 15:56:29 Primary Care Physician: Provider, None Attending Physician: Arslan Christiansen MD Comment: Visit Diagnosis: Diagnoses This Visit Arm pain-swelling ([id number]- [id number]) Cellulitis of right elbow (L03.113) Elevated blood pressure reading (R03.0) The Pharmacy at [facility] is open Tuesday through Tuesday from 9A [...] alcohol and/or drug addiction problems; contact the [facility] 29/11 Crisis Hotline -Text 1EERI hx 713321. If you received any narcotics, sedation, or [...] and treatment you received today in the [facility] Emergency Department were for an urgent problem and are not intended as complete care. It is important for you to follow up with a doctor, nurse practitioner, or physician?s janitorial assistant for ongoing care. If your symptoms [...] so we can reach you if necessary. [facility] has provided you with a complete list of medications post discharge. Please inform your pest controller/provider of your visit and for further instruction on these medications. Any specific questions regarding your chronic medications and dosages should be discussed with your primary care physician(s) and/or pharmacist. New Medications The [facility] at [facility], [address] [place] [address] [phone], [phone] cephalexin (cephalexin 500 mg oral capsule) 2 [...] metoprolol (Metoprolol (more content not included)... Normal [facility] CBC AUTO DIFFon 04-09-2022 BASO # 0.1 103/ul Normal 0.0-0.1 [facility] Comment on above: Performed By: #### C BC #### [facility] [address] [address] [address] Andra Zamarripa Basophils/100 WBC (Bld) 0.6 % Normal 0.2-2.0 [facility] Comment on above: Performed By: #### C BC #### [facility] [address] [address] [address] Andra Zamarripa EO # 0.3 103/ul Normal 0.0-0.7 [facility] Comment on above: Performed By: #### C BC #### [facility] [address] [place] [address] Dr. Andra Zamarripa Eosinophils/100 WBC (Bld) 2.1 % Normal 0.9-7.0 [facility] Comment on above: Performed By: #### C BC #### [facility] [address] [place] [address] Dr. Andra Zamarripa Erythrocyte distribution width (RBC) [Ratio] 20.6 % Critically high 11.0-15.0 [facility] Comment on above: Performed By: #### C BC #### [facility] [address] [place] [address] Dr. Andra Zamarripa Hematocrit (Bld) [Volume fraction] 39.5 % Normal 36.0-48.0 [facility] Comment on above: Performed By: #### C BC #### [facility] [address] [place] [address] Dr. Andra Zamarripa Hemoglobin (Bld) [Mass/Vol] 12.1 g/dL Normal 12.0-16.0 [facility] Comment on above: Performed By: #### C BC #### [facility] [address] [place] [address] Dr. Andra Zamarripa IG # 0.06 10e3/ul Critically high 0.00-0.03 [facility] Comment on above: Performed By: #### C BC #### [facility] [address] [place] [address] Dr. Andra Zamarripa IG % 0.4 % Normal 0.0-0.5 [facility] Comment on above: Performed By: #### C BC #### [facility] [address] [place] [address] Dr. Andra Zamarripa LYMPH # 4.2 103/ul Critically high 1.2-3.8 [facility] Comment on above: Performed By: #### C BC #### [facility] [address] [place] [address] Dr. Andra Zamarripa Lymphocytes/100 WBC (Bld) 26.3 % Normal 20.5-60.0 [facility] Comment on above: Performed By: #### C BC #### [facility] [address] [place] [address] Dr. Andra Zamarripa MANUAL DIFF REQ NO Normal [facility] Comment on above: Performed By: #### C BC #### [facility] [address] [address] [address] Andra Zamarripa MCH (RBC) [Entitic mass] 21.3 pg Critically low 26.7-34.[address] [facility] Comment on above: Performed By: #### C BC #### [facility] [address] [place] [address] Dr. Andra Zamarripa MCHC (RBC) [Mass/Vol] 30.6 g/dL Normal 29.9-35.[address] [facility] Comment on above: Performed By: #### C BC #### [facility] [address] [place] [address] Dr. Andra Zamarripa MCV (RBC) [Entitic vol] 69.4 fL Critically low 81.0-99.0 [facility] Comment on above: Performed By: #### C BC #### [facility] [address] [place] [address] Dr. Andra Zamarripa MONO # 0.7 103/ul Normal 0.3-0.8 [facility] Comment on above: Performed By: #### C BC #### [facility] [address] [place] [address] Dr. Andra Zamarripa Monocytes/100 WBC (Bld) 4.4 % Normal 1.7-12.0 [facility] Comment on above: Performed By: #### C BC #### [facility] [address] [place] [address] Dr. Andra Zamarripa NEUT # 10.6 103/ul Critically high 1.4-6.5 [facility] Comment on above: Performed By: #### C BC #### [facility] [address] [place] [address] Dr. Andra Zamarripa Neutrophils/100 WBC (Bld) 66.2 % Normal 43.0-75.[address] [facility] Comment on above: Performed By: #### C BC #### [facility] [address] [place] [address] Dr. Andra Zamarripa Platelet mean volume (Bld) [Entitic vol] 9.1 fL Critically low 9.5-13.[address] [facility] Comment on above: Performed By: #### C BC #### [facility] [address] [place], [place] [address] Dr. Andra Zamarripa PLT 454 103/ul Critically high 150-450 [facility] Comment on above: Performed By: #### C BC #### [facility] [address], [place] [address] Dr. Andra Zamarripa RBC 5.69 106/ul Critically high 4.20-5.40 [facility] Comment on above: Performed By: #### C BC #### [facility] [address], [place] [address] Dr. Andra Zamarripa WBC 16.0 103/ul Critically high 4.0-11.0 [facility] Comment on above: Performed By: #### C BC #### [facility] [address] [place], [place] [address] ABD/PELVIS WO CONon [...] Liz BURRELL Date: 2022-04-09 21:04 Normal [facility] Covid-19 PCR (CVDTBH)on SARS-CoV-2 (COVID-19) RNA DEE+probe Ql (Unsp spec) Not detected Normal NOT DETECTED [facility] Comment on above: Result Comment: [...] for this test is supported by the [place] of Health and Human Service's declaration that [...] longer be used). Performed By: #### C VDTBH #### [facility] [address] [place] [address] Dr. Andra Zamarripa ER URINE PROFILEon 2 Bilirubin Ql (U) Negative Normal NEGATIVE [facility] Comment on above: Performed By: #### E RUR, PREGU #### [facility] [address] [place] [address] Dr. Andra Zamarripa Clarity (U) CLEAR Normal CLEAR [facility] Comment on above: Performed By: #### E RUR, PREGU #### [facility] [address] [place] [address] Dr. Andra Zamarripa Color (U) YELLOW Normal YELLOW [facility] Comment on above: Performed By: #### E RUR, PREGU #### [facility] [address] [place] [address] Dr. Andra Zamarripa ERUAHD A micrscopic examination will be performed if indicated. Normal [facility] Comment on above: Performed By: #### E RUR, PREGU #### [facility] [address] [place] [address] [address] Andra Zamarripa Glucose Ql (U) Negative Normal NEGATIVE [facility] Comment on above: Performed By: #### E RUR, PREGU #### [facility] [address] [place] [address] Dr. Andra Zamarripa Hemoglobin Ql (U) Negative Normal NEGATIVE [facility] Comment on above: Performed By: #### E RUR, PREGU #### [facility] [address] [place] [address] Dr. Andra Zamarripa Ketones Ql (U) Negative Normal NEGATIVE [facility] Comment on above: Performed By: #### E RUR, PREGU #### [facility] [address] [place] [address] Dr. Andra Zamarripa LEUKOCYTES Negative Normal NEGATIVE [facility] Comment on above: Performed By: #### E RUR, PREGU #### [facility] [address] [place] [address] Dr. Andra Zamarripa Nitrite Ql (U) Negative Normal NEGATIVE [facility] Comment on above: Performed By: #### E RUR, PREGU #### [facility] [address] [place] [address] Dr. Andra Zamarripa pH (U) 7.0 [pH] Normal 5-9 [facility] Comment on above: Performed By: #### E RUR, PREGU #### [facility] [address] [place] [address] Dr. Andra Zamarripa SPEC GRAVITY 1.020 Normal 1.005-<=1.025 [facility] Comment on above: Performed By: #### E RUR, PREGU #### [facility] [address] [place] [address] Dr. Andra Zamarripa UA PROTEIN Negative Normal NEGATIVE/ TRACE [facility] Comment on above: Performed By: #### E RUR, PREGU #### [facility] [address] [place] [address] Dr. Andra Zamarripa UR MICRO IND NOT INDICATED Normal [facility] Comment on above: Performed By: #### E RUR, PREGU #### [facility] [address] [place] [address] Dr. Andra Zamarripa Urobilinogen Qn (U) 2.0 {Rosa'U}/dL Abnormal 0.2 - 1. [address] [facility] Comment on above: Performed By: #### E RUR, PREGU #### [facility] [address] [place] [address] Dr. Andra Zamarripa INFLUENZA A AND B AGon 04-09 INFLUENZA A AG Negative Normal NEGATIVE SEE COMMENT [facility] Comment on above: Performed By: #### I NFLUAB #### [facility] [address] [place] [address] Dr. Andra Zamarripa INFLUENZA B AG Negative Normal NEGATIVE SEE COMMENT [facility] Comment on above: Performed By: #### I NFLUAB #### [facility] [address] [place] [address] Dr. Andra Zamarripa INFLUPOS SEE BELOW Normal [facility] Comment on above: Result Comment: NOTE : Live attenuated influenzae vaccine viruses can cause a positive result for a rapid influenza diagnostic test if administered up to 7 days prior to rapid testing. Performed By: #### I NFLUAB #### [facility] [address] [place] [address] Dr. Andra Zamarripa INFLUPOS SEE BELOW Normal [facility] Comment on above: Result Comment: NOTE : Live attenuated influenzae vaccine viruses can cause a positive result for a rapid influenza diagnostic test if administered up to 7 days prior to rapid testing. Performed By: #### I NFLUAB #### [facility] [address] [place] [address] Dr. Andra Zamarripa INTERNAL CONTROLS Within Normal Limits Normal Wi thin Normal Limits [facility] Comment on above: Performed By: #### I NFLUAB #### [facility] [address] [place] [address] Dr. Andra Zamarripa URon 04-09-2022 , QUAL Negative Normal NEGATIVE [facility] Comment on above: Performed By: #### E RUR, PREGU #### [facility] [address] [place] [address] Dr. Andra Zamarripa PROF 14(COMP METB)on 022 Albumin [Mass/Vol] 3.8 g/dL Normal 3.4-5.0 [facility] Comment on above: Performed By: #### C MP #### [facility] [address] [address] [address] Andra Zamarripa Albumin/Globulin [Mass ratio] 0.7 {ratio} Normal [facility] Comment on above: Performed By: #### C MP #### [facility] [address] [place] [address] Dr. Andra Zamarripa ALP [Catalytic activity/Vol] 93 U/L Normal 46-116 [facility] Comment on above: Performed By: #### C MP #### [facility] [address] [place] [address] Dr. Andra Zamarripa ALT [Catalytic activity/Vol] 25 U/L Normal 14-59 [facility] Comment on above: Performed By: #### C MP #### [facility] [address] [place] [address] Dr. Andra Zamarripa Anion gap [Moles/Vol] 5.9 mmol/L Normal [facility] Comment on above: Performed By: #### C MP #### [facility] [address] [place] [address] Dr. Andra Zamarripa AST [Catalytic activity/Vol] 25 U/L Normal 15-37 [facility] Comment on above: Performed By: #### C MP #### [facility] [address] [place] [address] Dr. Andra Zamarripa Bilirubin [Mass/Vol] 0.3 mg/dL Normal 0.2-1.0 [facility] Comment on above: Performed By: #### C MP #### [facility] [address] [place] [address] Dr. Andra Zamarripa Calcium [Mass/Vol] 8.7 mg/dL Normal 8.5-10.1 [facility] Comment on above: Performed By: #### C MP #### [facility] [address] [place] [address] Dr. Andra Zamarripa Chloride [Moles/Vol] 97 mmol/L Critically low 98-107 [facility] Comment on above: Performed By: #### C MP #### [facility] [address] [place] [address] [address] Andra Zamarripa CO2 [Moles/Vol] 33.4 mmol/L Critically high 21.0-32.0 [facility] Comment on above: Performed By: #### C MP #### [facility] [address] [place] [address] [address] Andra Zamarripa Creatinine [Mass/Vol] 1.24 mg/dL Critically high 0.55-1.02 [facility] Comment on above: Performed By: #### C MP #### [facility] [address] [place] [address] Dr. Andra Zamarripa EGFR-AF SWISS 59 mL/min/1.73m2 Critically low >=60 [facility] Comment on above: Performed By: #### C MP #### [facility] [address] [place] [address] [address] Andra Zamarripa EGFR-NON AF SWISS 48 mL/min/1.73m2 Critically low >=60 [facility] Comment on above: Performed By: #### C MP #### [facility] [address] [place] [address] [address] Andra Zamarripa Globulin (S) [Mass/Vol] 5.2 g/dL Normal [facility] Comment on above: Performed By: #### C MP #### [facility] [address] [place] [address] [address] Andra Zamarripa Glucose [Mass/Vol] 136 mg/dL Critically high 74-106 [facility] Comment on above: Performed By: #### C MP #### [facility] [address] [place] [address] [address] Andra Zamarripa Potassium [Moles/Vol] 3.3 mmol/L Critically low 3.5-5.1 [facility] Comment on above: Performed By: #### C MP #### [facility] [address] [place] [address] [address] Andra Zamarripa Protein [Mass/Vol] 9.0 g/dL Critically high 6.4-8.2 [facility] Comment on above: Performed By: #### C MP #### [facility] [address] [place] [address] [address] Andra Zamarripa Sodium [Moles/Vol] 133 mmol/L Critically low 136-145 [facility] Comment on above: Performed By: #### C MP #### [facility] [address] [place] [address] [address] Andra Zamarripa Urea nitrogen [Mass/Vol] 12.0 mg/dL Normal 7.0-18.0 [facility] Comment on above: Performed By: #### C MP #### [facility] [address] [place] [address] [address] Andra Zamarripa Urea nitrogen/Creatinine [Mass ratio] 9.7 mg/mg Normal [facility] Comment on above: Performed By: #### C MP #### [facility] [address] [place] [address] Dr. Andra Zamarripa Encounters Encounter Date Encounter Type Care Provider Facility Start: 11-02-2024 ambulatory Barbara L Madelin Facility: [facility] Start: 10-19-2024 End: 10-19-2024 ambulatory TONY ROWLANDANN Facility:[facility] Start: 10-18-2024 ambulatory Barbara L Madelin Facility: [id number] Start: 10-11-2024 End: 10-11-2024 ambulatory Barbara L Madelin Facility:[facility] Start: 09-27-2024 ambulatory Barbara L Madelin Facility: [facility] Start: 08-16-2024 End: 08-16-2024 Lab Drop off Barbara L Madelin [facility] Start: 08-16-2024 End: 08-16-2024 ambulatory [employer] Barbara L Madelin Facility:[facility] Start: 07-16-2024 ambulatory [employer] Barbara L Madelin Facil ity:[facility] Start: 07-09-2024 End: 07-09-2024 ambulatory [employer] [facility] Start: 07-04-2024 End: 07-04-2024 ambulatory [employer] Barbara L Madelin Facility:[facility] Start: 07-04-2024 End: 07-04-2024 Patient encounter procedure Barbara L Madelin [facility] Start: 05-30-2024 End: 05-30-2024 ambulatory [employer] Barbara L Madelin Facility:[facility] Start: 01-25-2024 End: 01-26-2024 ambulatory None Provider Facility:[facility] Start: 01-25-2024 End: 01-26-2024 ambulatory None Provider Facility:[facility] Start: 01-22-2024 End: 01-22-2024 Emergency department patient visit [facility] Facility:[facility] Start: 04-09-2022 End: 04-09-[address] DOCTOR VALENTIN Facility:[facility] Procedures Date Procedure Procedure Detail Performing Clinician Cholecystectomy Barbara Madelin Deliveries by (finding) Barbara Madelin Surgical procedure Barbara Schw ab Immunizations Immunization Date Immunization Notes Care Provider Dionisio guerrero 02-21-2017 influenza virus vaccine, unspecified formulation Barbara Madelin [facility] 05-06-2015 influenza virus vaccine, unspecified formulation Barbara Madelin [facility] Payers Date Payer Category Payer Medicaid [id number] 2022 Medicaid [id number] 1985 Unknown [id number] 2.16.84 [id number] 1984 Unknown [id number] 2.16.8 [id number] 1984 Unknown [id number] 2.16.8 [id number] 1984 Unknown [id number] 2.16.8 [id number] 1984 Unknown [id number] 2.16.8 [id number] 1984 Unknown [id number] 2.16.8 [id number] 1984 Unknown [id number] 2.16.8 [id number] 1984 Unknown [id number] 2.16.8 [id number] 1984 Unknown [id number] 2.16.8 [id number] 1984 Unknown [id number] 2.16.8 [id number] 1984 Unknown [id number] 2.16.8 [id number] 1984 Unknown [id number] 2.16.8 [id number] 1984 Unknown [id number] 2.16.8 [id number] 1959 Unknown [id number] Social History Date Type Detail Facility Start: 07-01-2023 Tobacco smoking status Ex-smoker (fi nding) [facility] [place] Comment on above: quit 8 years ago Sex Assigned At Female [facility] Sexual Orientation [facility] Sex Female (finding) [facility] Clinical Note 10-19-2024 Note Date & Type Note Facility 10-19-2024 Note Patient Education Pulmonary Medicine Acute Bronchitis, Adult Acute bronchitis is when air tubes in the lungs (bronchi) suddenly get swollen. The condition can make it hard for you to breathe. In adults, acute bronchitis usually goes away within 2 weeks. A cough caused by bronchitis may last up to 3 weeks. Smoking, allergies, and asthma can make the condition worse. What are the causes? Germs that cause cold and flu (viruses). The most common cause of this condition is the virus that causes the common cold. ??? Bacteria. ??? Substances that bother (irritate) the lungs, including: ? Smoke from cigarettes and other types of tobacco. ? Dust and pollen. ? Fumes from chemicals, gases, or burned fuel. ? Indoor or outdoor air pollution. What increases the risk? A weak body's defense system. This is also called the immune system. ??? Any condition that affects your lungs and breathing, such as asthma. What are the signs or symptoms? A cough. ??? Coughing up clear, yellow, or green mucus. ??? Making high-pitched whistling sounds when you breathe, most often when you breathe out (wheezing). ??? Runny or stuffy nose. ??? Having too much mucus in your lungs (chest congestion). ??? Shortness of breath. ??? Body aches. ??? A sore throat. How is this treated? Acute bronchitis may go away over time without treatment. Your doctor may tell you to: ??? Drink more fluids. This will help thin your mucus so it is easier to cough up. ??? Use a device that gets medicine into your lungs (inhaler). ??? Use a vaporizer or a humidifier. These are machines that add water to the air. This helps with coughing and poor breathing. ??? Take a medicine that thins mucus and helps clear it from your lungs. ??? Take a medicine that prevents or stops coughing. It is not common to take an antibiotic medicine for this condition. Follow these instructions at home: ??? Take ukzz-gux-zvpmdji and prescription medicines only as told by your doctor. ??? Use an inhaler, vaporizer, or humidifier as told by your doctor. ??? Take two teaspoons (10 mL) of honey at bedtime. This helps lessen your coughing at night. ??? Drink enough fluid to keep your pee (urine) pale yellow. ??? Do not smoke or use any products that contain nicotine or tobacco. If you need help quitting, ask your doctor. ??? Get a lot of rest. ??? Return to your normal activities when your doctor says that it is safe. ??? Keep all follow-up visits. How is this prevented? Wash your hands often with soap and water for at least 20 seconds. If you cannot use soap and water, use hand press tender long goods. ??? Avoid contact with people who have cold symptoms. ??? Try not to touch your mouth, nose, or eyes with your hands. ??? Avoid breathing in smoke or chemical fumes. ??? Make sure to get the flu shot every year. Contact a doctor if: ??? Your symptoms do not get better in 2 weeks. ??? You have trouble coughing up the mucus. ??? Your cough keeps you awake at night. ??? You have a fever. Get help right away if: ??? You cough up blood. ??? You have chest pain. ??? You have very bad shortness of breath. ??? You faint or keep feeling like you are going to faint. ??? You have a very bad headache. ??? Your fever or chills get worse. These symptoms may be an emergency. Get help right away. Call your local emergency services (911 in the [place] ??? Do not wait to see if the symptoms will go away. ??? Do not drive yourself to the hospital. Summary ??? Acute bronchitis is when air tubes in the lungs (bronchi) suddenly get swollen. In adults, acute bronchitis usually goes away within 2 weeks. ??? Drink more fluids. This will help thin your mucus so it is easier to cough up. ??? Take bhlb-wcf-canrppy and prescription medicines only as told by your doctor. ??? Contact a doctor if your symptoms do not improve after 2 weeks of treatment. This information is not intended to replace advice given to you by your health care provider. Make sure you discuss any questions you have with your health care provider. Document Revised: 08/26/2021 Document Reviewed: 08/26/2021 [employer] Patient Education ? 2023 [employer]. [facility] Clinical Note 01-26-2024 Note Date & [...] these instructions at home: Medicines ? Take yctn-gvu-fqoyjrd and prescription medicines only as told by [...] provider. Document Revised: 12/21/2022 Document Reviewed: 12/21/2022 [employer] Patient Education ? 2023 [employer]. [facility] Clinical Note 01-22-2024 Note Date & [...] Keep all follow-up visits. Medicines ? Take ioir-mrq-szbcrit and prescription medicines only as told by [...] breathing. These symptoms (more content not included)... [facility] Evaluation + Plan note Note Date & Type Note Facility Evaluation + Plan note Future Appointments Appointment Date:07/09/2024 01:40:00 PM Scheduled Provider:Barbara Troncoso Location:[facility] Appointment Type: Open [facility] Hospital course Narrative Note Date & Type Note Facility Hospital course Narrative No data available for this section [facility] Hospital Discharge instructions Note Date & Type Note Facility Hospital Discharge instructions No data available for this section [facility] Progress note Note Date & Type Note Facility Progress note No data available for this section [facility] Summary Purpose Family History No Family [...] and content) DATE CREATED AUTHOR [facility]13/2022 [facility] DATE CREATED AUTHOR AUTHOR'S ORGANIZ ATION 06/07/2024 [facility] DATE CREATED AUTHOR AUTHOR'S ORGANIZ ATION 08/17/2024 [facility] DATE CREATED AUTHOR AUTHOR'S ORGANIZ ATION 08/18/2024 [facility] DATE CREATED AUTHOR AUTHOR'S ORGANIZ ATION 10/20/2024 [facility] Patient Care team informatio n (unrecognized section and content) Personnel Name: Barbara Troncoso Address: Address: [address] [place] [address]- Personnel Name: Barbara Troncoso Address: [address] [place] [address]- [employer]: FOR RECORDS PERTAINING TO PATIENTS WHO [...] BE BASED ON THE PRIMARY CLINICAL RECORDS. [facility]. provides no warranty or guarantee of the accuracy or completeness of information in this document.
== END 2024-10-16 21:34 | disposition left against medical advice (07) ==
LOC: ER 17:08 → MS 10-16 03:35
PROVIDERS: Physician Assistant; Admitting Provider Family Medicine; Emergency Provider Emergency Medicine; PCP Nurse Practitioner; Visit Provider Family Medicine
DX: J45.901 Unspecified asthma with (acute) exacerbation (principal); Z53.29 Procedure and treatment not carried out because of patient's decision for other reasons; I10 Essential (primary) hypertension; D50.9 Iron deficiency anemia, unspecified; Z87.891 Personal history of nicotine dependence; Z90.49 Acquired absence of other specified parts of digestive tract; R50.9 Fever, unspecified; E03.9 Hypothyroidism, unspecified; Z79.890 Hormone replacement therapy; F41.9 Anxiety disorder, unspecified; F32.A Depression, unspecified; F11.21 Opioid dependence, in remission; H65.93 Unspecified nonsuppurative otitis media, bilateral
CPT/HCPCS: 36415; 71046; 80048; 80053; 83735; 85025; 85378; 87040; 93005; 94640; 94667; 94668; 94761; 96365; 96367; 96372; 96374; 96376; 99285; G0378; J0456; J0696; J1650; J2919